=== PATIENT | female | born 1960 | race Caucasian/White ===

== ENCOUNTER 2017-02-13 16:18 | Emergency (ER) | payer BC ==
--- NOTE | 2017-02-13 16:39 | EDM.PDOC ---
ED HPI GENERAL MEDICAL PROBLEM - General Chief Complaint: Bite:Animal, Insect Stated Complaint: DOG BITE Time Seen by Provider: 02/13/17 16:39 Source of Information: Reports: Patient - History of Present Illness INITIAL COMMENTS - FREE TEXT/NARRATIVE: Patient is here today for evaluation for injuries sustained after a dog bite. She reports that she was mowing her lawn and the neighbor's dog got loose and ( perhaps stressed due to the sirens) bit her in the right thigh and she tried to pushing him away she got a wound to her left hand as well. She does not know when her last tetanus shot was. She states that the lab neighbor dog is reportedly up to date on all of its shots and the owners are persistent providing copies of these to the police. Patient is otherwise healthy, not diabetic and no bleeding or clotting disorders. Right Upper Leg Pain Score (Numeric/FACES): 7 - Related Data Allergies Allergy/AdvReac Type Severity Reaction Status Date / Time No Known Allergies Allergy Verified 02/13/17 16:29 Home Meds: Home Meds Amoxicillin/Clavulanate K [Augmentin 875 MG/125 MG] 1 tab PO Q12HR #10 tablet [Rx] Escitalopram [Lexapro] 10 mg PO DAILY 02/13/17 [History] Folic Acid 0 mg PO DAILY 02/13/17 [History] Multivitamin [Multivitamins] 1 tab PO DAILY 02/13/17 [History] Past Medical History - Past Surgical History Female Surgical History: Reports: Tubal Ligation Social & Family History - Tobacco Use Smoking Status *Q: Never Smoker - Caffeine Use Caffeine Use: Reports: Soda ED ROS GENERAL - Review of Systems Review Of Systems: See Below Constitutional: Reports: No Symptoms Musculoskeletal: Reports: No Symptoms Skin: Reports: Other (Injuries/ to right buttock and left hand) Neurological: Reports: No Symptoms ED EXAM, ANIMAL BITE - Physical Exam Exam: See Below Exam Limited By: No Limitations General Appearance: Alert, WD/WN, No Apparent Distress Extremities: Normal Range of Motion, Normal Capillary Refill Neurological: Alert, Oriented, No Motor/Sensory Deficits Skin Exam: Other (Jagged 5 cm laceration to upper outer aspect of right thigh with deeper puncture to parts of this. Superficial abrasion to the back of her left hand with loose flap of skin.) ED ANIMAL BITE PROCEDURES - Laceration/Wound Repair Right Upper Thigh Lac/Wound Length In cm: 5 Appearance: Muscle, Irregular, Mildly Contaminated Distal NVT: Neuro & Vascular Intact, No Tendon Injury Anesthetic Type: Local Local Anesthesia - Lidocaine (Xylocaine): 1% With EPI Local Anesthetic Volume: 5cc Skin Prep: Chlorhexidine (Hibiciens) Saline Irrigation (cc's): 20 Exploration/Debridement/Repair: Wound Explored, in a Bloodless Field, Minimal Debridement, No Foreign Material Found, Multiple Flaps Aligned Closed With: Sutures Suture Size: 4-0 # of Sutures: 5 Suture Type: Nylon Left Posterior Hand Lac/Wound Length In cm: 1 Appearance: Superficial, Irregular Distal NVT: Neuro & Vascular Intact, No Tendon Injury Skin Prep: Chlorhexidine (Hibiciens) Saline Irrigation (cc's): 5 Exploration/Debridement/Repair: Wound Explored, in a Bloodless Field, No Foreign Material Found, Other (Flap was aligned) Closed With: Steri-Strips Course - Orders/Labs/Meds Orders: Active Orders 24 hr Category Date Time Status Vaccines to be Administered [RC] PER UNIT ROUTINE Care 02/13/17 16:53 Active Meds: Medications Discontinued Medications Generic Name Dose Route Start Last Admin Trade Name Freq PRN Reason Stop Dose Admin Diphtheria/Tetanus/Acell Pertussis 0.5 ml 02/13/17 16:53 02/13/17 16:59 Adacel IM 02/13/17 16:54 0.5 ml .ONCE ONE Administration Lidocaine/Epinephrine 20 ml 02/13/17 16:55 02/13/17 17:00 Xylocaine 1% With Epinephrine 1:100,000 INJECT 02/13/17 16:56 20 ml ONETIME ONE Administration - Re-Assessments/Exams Free Text/Narrative Re-Assessment/Exam: Patient tolerated wound repair well. Tdap booster was given. Wound care instructions and monitoring infection were discussed discussed and patient verbalized understanding of this. Will treat prophylactically with Augmentin twice a day 5 days. She is to follow-up for suture removal in one week. 02/13/17 17:42 Departure - Departure Time of Disposition: 17:31 Disposition: Home, Self-Care 01 Clinical Impression: Laceration, Puncture Dog bite Qualifiers: Encounter type: initial encounter Qualified Code(s): W54.0XXA - Bitten by dog, initial encounter - Discharge Information Prescriptions: Amoxicillin/Clavulanate K [Augmentin 875 MG/125 MG] 1 tab PO Q12HR #10 tablet Instructions: Animal Bite, [id number] Referrals: Dianne Chaudhry NP [Primary Care Provider] - Forms: ED Department Discharge Additional Instructions: Keep area clean and dry. Cover when out in the garden or any other dirty environment. Take antibiotics twice a day for 5 days. 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 Monitor for any redness or drainage that would indicate infection. Follow-up with your PCP or in the walk-in clinic at [facility] for suture removal in approximately 7 days. Your Steri-Strips will fall off do not pick at them if the ends fray just trim the end., - My Orders Last 24 Hours: My Active Orders 02/13/17 16:53 Vaccines to be Administered [RC] PER UNIT ROUTINE - Assessment/Plan Last 24 Hours: My Active Orders 02/13/17 16:53 Vaccines to be Administered [RC] PER UNIT ROUTINE
[2017-02-13] MEDS ORDERED: Diphtheria,Pertussis(Acell),Tetanus Vaccine 0.5 ML SDV IM ONE (16:53)
[2017-02-13] MEDS ORDERED: Lidocaine 1% with EPINEPHrine 1:100,000 20 ML MDV INJECT ONE (16:55)
[2017-02-13 18:06] VITALS: BP 122/82
== END 2017-02-13 17:40 | disposition home or self-care (01) ==
LOC: JD.ED 16:18 → SUPCPDRO 16:18 → JD.ED 17:40
DX: S71.111A Laceration without foreign body, right thigh, initial encounter (principal); S60.512A Abrasion of left hand, initial encounter; Z23 Encounter for immunization; Z98.51 Tubal ligation status; Z98.890 Other specified postprocedural states; W54.0XXA Bitten by dog, initial encounter
CPT/HCPCS: 12002; 12032; 90471; 90715; 99283; 99283-25

== ENCOUNTER 2018-09-01 12:42 | Inpatient (IN) | payer BC ==
[2018-09-01] MEDS ORDERED: Sodium Chloride 0.9% 10 ML Syringe FLUSH PRN (13:08)
[2018-09-01] MEDS ORDERED: Sodium Chloride 0.9% 1,000 ML IV ONE ×3 (13:08→17:08)
[2018-09-01] MEDS ORDERED: Ondansetron 4 MG/2 ML SDV IVPUSH ONE (13:08)
--- NOTE | 2018-09-01 13:18 | EDM.PDOC ---
ED HPI GENERAL MEDICAL PROBLEM - General Chief Complaint: Abdominal Pain Stated Complaint: VOMITING Time Seen by Provider: 09/01/18 13:07 Source of Information: Reports: Patient History Limitations: Reports: No Limitations - History of Present Illness INITIAL COMMENTS - FREE TEXT/NARRATIVE: 58 y/o F previously healthy presents with vomiting, weakness, and fatigue. States she has a history of low potassium and low sodium, workup has been negative but her mother has similar problem. Otherwise no significant medical problems. Has had intermittent vomiting/malaise x 1 year for which she's seen PCP, not able to articulate exactly what testing has been completed, but says everything was normal. Now for past 2-3 days she's had many episodes of vomiting. Not keeping anything down, including liquids. Very decreased urinary output. She feels short of breath. No cough/CP. Has vague diffuse abdominal pain , not related to movement or eating, constant, moderate severity currently. Denies dysuria or hematuria. She has had a significant weight loss. Lower Abdominal Pain Score (Numeric/FACES): 5 - Related Data Allergies Allergy/AdvReac Type Severity Reaction Status Date / Time No Known Allergies Allergy Verified 09/01/18 12:54 Home Meds: Home Meds Potassium Chloride 1 tab PO TID 09/02/18 [History] Venlafaxine HCl [Venlafaxine ER] 1 tab PO DAILY 09/02/18 [History] Past Medical History HEENT History: Reports: Impaired Vision Other HEENT History: wears corrective lenses Gastrointestinal History: Reports: GERD DRAPERY HEAD FORMER History: Reports: - Past Surgical History Female Surgical History: Reports: Tubal Ligation Social & Family History - Tobacco Use Smoking Status *Q: Unknown Ever Smoked - Caffeine Use Caffeine Use: Reports: None - Recreational Drug Use Recreational Drug Use: No ED ROS GENERAL - Review of Systems Review Of Systems: See Below Constitutional: Reports: Fever, Chills, Malaise, Weakness HEENT: Denies: Rhinitis Respiratory: Denies: Shortness of Breath, Cough Cardiovascular: Denies: Chest Pain Endocrine: Reports: No Symptoms GI/Abdominal: Reports: Abdominal Pain, Vomiting. Denies: Diarrhea : Denies: Dysuria Musculoskeletal: Reports: No Symptoms Skin: Reports: No Symptoms Neurological: Reports: No Symptoms Psychiatric: Reports: No Symptoms Hematologic/Lymphatic: Reports: No Symptoms Immunologic: Reports: No Symptoms ED EXAM, GI/ABD - Physical Exam Exam: See Below Exam Limited By: No Limitations General Appearance: Mild Distress, Cachetic, Other (ill appearing ) Eyes: Bilateral: Normal Appearance, EOMI Ears: Normal External Exam Nose: Normal Inspection Throat/Mouth: Normal Inspection, Normal Oropharynx, Normal Voice Head: Atraumatic, Normocephalic Neck: Normal Inspection, Supple Respiratory/Chest: No Respiratory Distress, Lungs Clear, Normal Breath Sounds, Chest Non-Tender Cardiovascular: Normal Peripheral Pulses, Regular Rate, Rhythm, No Murmur, Tachycardia GI/Abdominal Exam: Soft, Other (mild diffuse TTP ). No: No Distention, Rebound Back Exam: Normal Inspection. No: CVA Tenderness (L), CVA Tenderness (R) Extremities: Normal Inspection Neurological: Alert, Oriented, Normal Cognition, No Motor/Sensory Deficits Psychiatric: Normal Affect, Normal Mood Skin Exam: Warm, Dry, Intact, Normal Color, No Rash Course - Vital Signs Last Recorded V/S: Last Vital Signs Temp 36.7 C 09/02/18 08:32 Pulse 96 09/02/18 08:32 Resp 16 09/02/18 08:32 BP 100/52 L 09/02/18 08:32 Pulse Ox 98 09/02/18 08:32 - Orders/Labs/Meds Orders: Medication Orders Diphenhydramine HCl (Benadryl) 25 mg IVPUSH BEDTIME PRN PRN Reason: Insomnia Docusate Sodium (Colace) 200 mg PO DAILY [facility] Last Admin: 09/02/18 08:35 Dose: 200 mg Famotidine (Pepcid) 20 mg IVPUSH DAILY [facility] Last Admin: 09/02/18 08:35 Dose: 20 mg Heparin Sodium (Porcine) (Heparin Sodium) 5,000 units SUBCUT Q12H [facility] Last Admin: 09/02/18 08:41 Dose: 5,000 units Admin: 09/01/18 21:28 Dose: 5,000 units Sodium Chloride (Normal Saline) 1,000 mls @ 125 mls/hr IV ASDIRECTED [facility] Last Admin: 09/02/18 17:52 Dose: 125 mls/hr Infusion: 09/02/18 17:52 Dose: 125 mls/hr Admin: 09/02/18 10:05 Dose: 125 mls/hr Ceftriaxone Sodium 2 gm/ (Sodium Chloride) 100 mls @ 200 mls/hr IV Q24H [facility] Last Admin: 09/02/18 00:36 Dose: 200 mls/hr Lorazepam (Ativan) 1 mg PO BID [facility] Last Admin: 09/02/18 08:44 Dose: 1 mg Megestrol Acetate (Megace 40 Mg/Ml Susp) 400 mg PO DAILY [facility] Last Admin: 09/02/18 08:39 Dose: 400 mg Mirtazapine (Remeron) 30 mg PO BEDTIME [facility] Ondansetron HCl (Zofran) 4 mg IVPUSH Q8H PRN PRN Reason: Nausea/Vomiting Polyethylene Glycol (Miralax) 17 gm PO DAILY PRN PRN Reason: Constipation Potassium Chloride (Klor-Con M20) 40 meq PO Q4H [facility] Stop: 09/02/18 19:46 Last Admin: 09/02/18 16:08 Dose: 40 meq Admin: 09/02/18 12:56 Dose: 40 meq Admin: 09/02/18 08:35 Dose: 40 meq Saccharomyces Boulardii (Florastor) 250 mg PO BID [facility] Senna/Docusate Sodium (Senna Plus) 1 tab PO BID PRN PRN Reason: Constipation Sodium Chloride (Saline Flush) 10 ml FLUSH ASDIRECTED PRN PRN Reason: Keep Vein Open Last Admin: 09/01/18 13:17 Dose: 10 ml Venlafaxine HCl (Effexor Xr) 37.5 mg PO DAILY [facility] Stop: 09/16/18 09:01 Venlafaxine HCl (Effexor Xr) 75 mg PO DAILY [facility] Stop: 09/09/18 09:01 Venlafaxine HCl (Effexor Xr) 37.5 mg PO Q2D [facility] Stop: 09/23/18 09:01 Labs: Laboratory Tests 09/01/18 09/01/18 09/01/18 Range/Units 13:34 13:34 13:34 WBC 27.91 H (3.98-10.04) K/mm3 RBC 6.41 H (3.98-5.22) M/mm3 Hgb 18.2 H (11.2-15.7) gm/L Hct 53.0 H (34.1-44.9) % MCV 82.7 (79.4-94.8) fl MCH 28.4 (25.6-32.2) pg MCHC 34.3 (32.2-35.5) g/dl RDW Std Deviation 42.6 (36.4-46.3) fL Plt Count 604 H (182-369) K/mm3 MPV 9.0 L (9.4-12.3) fl Neut % (Auto) 84.8 H (34.0-71.1) % Lymph % (Auto) 6.3 L (19.3-51.7) % [place] % (Auto) 7.8 (4.7-12.5) % Eos % (Auto) 0 L (0.7-5.8) Baso % (Auto) 0.2 (0.1-1.2) % Neut # (Auto) 23.67 H (1.56-6.13) K/mm3 Lymph # (Auto) 1.75 (1.18-3.74) K/mm3 [place] # (Auto) 2.18 H (0.24-0.36) K/mm3 Eos # (Auto) 0.01 L (0.04-0.36) K/mm3 Baso # (Auto) 0.05 (0.01-0.08) K/mm3 Manual Slide Review Abnormal smear Sodium 128 L (136-145) mEq/L Potassium 5.1 (3.5-5.1) mEq/L Chloride 93 L (98-107) mEq/L Carbon Dioxide 14 L (21-32) mEq/L Anion Gap 26.1 H (5-15) BUN 62 H (7-18) mg/dL Creatinine 3.2 H (0.55-1.02) mg/dL Est Cr Clr Drug Dosing 11.53 mL/min Estimated GFR (MDRD) 15 (>60) mL/min BUN/Creatinine Ratio 19.4 H (14-18) Glucose 204 H (74-106) mg/dL Lactic Acid 3.9 H (0.4-2.0) mmol/L Calcium 8.7 (8.5-10.1) mg/dL Magnesium 2.1 (1.8-2.4) mg/dl Total Bilirubin 0.3 (0.2-1.0) mg/dL AST 43 H (15-37) U/L ALT 47 (14-59) U/L Alkaline Phosphatase 84 (46-116) U/L Troponin I (0.00-0.056) ng/mL Total Protein 6.5 (6.4-8.2) g/dl Albumin 3.1 L (3.4-5.0) g/dl Globulin 3.4 gm/dL Albumin/Globulin Ratio 0.9 L (1-2) Lipase 621 H (73-393) U/L Free T4 0.90 (0.76-1.46) ng/dL TSH 3rd Generation 10.276 H (0.358-3.74) uIU/mL Urine Color (Yellow) Urine Appearance (Clear) Urine pH (5.0-8.0) Ur Specific [place] (1.005-1.030) Urine Protein (Negative) Urine Glucose (UA) (Negative) Urine Ketones (Negative) Urine Occult Blood (Negative) Urine Nitrite (Negative) Urine Bilirubin (Negative) Urine Urobilinogen (0.2-1.0) Ur Leukocyte Esterase (Negative) Urine RBC (0-5) /hpf Urine WBC (0-5) /hpf Ur Epithelial Cells (0-5) /hpf Urine Bacteria (FEW) /hpf Urine Mucus (FEW) /hpf 09/01/18 09/01/18 09/01/18 Range/Units 13:34 14:55 16:20 WBC (3.98-10.04) K/mm3 RBC (3.98-5.22) M/mm3 Hgb (11.2-15.7) gm/L Hct (34.1-44.9) % MCV (79.4-94.8) fl MCH (25.6-32.2) pg MCHC (32.2-35.5) g/dl RDW Std Deviation (36.4-46.3) fL Plt Count (182-369) K/mm3 MPV (9.4-12.3) fl Neut % (Auto) (34.0-71.1) % Lymph % (Auto) (19.3-51.7) % [place] % (Auto) (4.7-12.5) % Eos % (Auto) (0.7-5.8) Baso % (Auto) (0.1-1.2) % Neut # (Auto) (1.56-6.13) K/mm3 Lymph # (Auto) (1.18-3.74) K/mm3 [place] # (Auto) (0.24-0.36) K/mm3 Eos # (Auto) (0.04-0.36) K/mm3 Baso # (Auto) (0.01-0.08) K/mm3 Manual Slide Review Sodium (136-145) mEq/L Potassium (3.5-5.1) mEq/L Chloride (98-107) mEq/L Carbon Dioxide (21-32) mEq/L Anion Gap (5-15) BUN (7-18) mg/dL Creatinine (0.55-1.02) mg/dL Est Cr Clr Drug Dosing mL/min Estimated GFR (MDRD) (>60) mL/min BUN/Creatinine Ratio (14-18) Glucose (74-106) mg/dL Lactic Acid 2.3 H (0.4-2.0) mmol/L Calcium (8.5-10.1) mg/dL Magnesium (1.8-2.4) mg/dl Total Bilirubin (0.2-1.0) mg/dL AST (15-37) U/L ALT (14-59) U/L Alkaline Phosphatase (46-116) U/L Troponin I < 0.017 (0.00-0.056) ng/mL Total Protein (6.4-8.2) g/dl Albumin (3.4-5.0) g/dl Globulin gm/dL Albumin/Globulin Ratio (1-2) Lipase (73-393) U/L Free T4 (0.76-1.46) ng/dL TSH 3rd Generation (0.358-3.74) uIU/mL Urine Color Yellow (Yellow) Urine Appearance Cloudy H (Clear) Urine pH 5.5 (5.0-8.0) Ur Specific [place] > or = 1.030 (1.005-1.030) Urine Protein 2+ H (Negative) Urine Glucose (UA) Negative (Negative) Urine Ketones Trace H (Negative) Urine Occult Blood 1+ H (Negative) Urine Nitrite Positive H (Negative) Urine Bilirubin Negative (Negative) Urine Urobilinogen 0.2 (0.2-1.0) Ur Leukocyte Esterase 2+ H (Negative) Urine RBC 0-5 (0-5) /hpf Urine WBC 10-20 H (0-5) /hpf Ur Epithelial Cells 5-10 H (0-5) /hpf Urine Bacteria Many H (FEW) /hpf Urine Mucus Few (FEW) /hpf Meds: Medications Generic Name Dose Route Start Last Admin Trade Name Freq PRN Reason Stop Dose Admin Diphenhydramine HCl 25 mg 09/01/18 20:45 Benadryl IVPUSH BEDTIME PRN Insomnia Docusate Sodium 200 mg 09/02/18 09:00 09/02/18 08:35 Colace PO 200 mg DAILY [facility] Administration Famotidine 20 mg 09/02/18 09:00 09/02/18 08:35 Pepcid IVPUSH 20 mg DAILY [facility] Administration Heparin Sodium (Porcine) 5,000 units 09/01/18 21:00 09/02/18 08:41 Heparin Sodium SUBCUT 5,000 units Q12H [facility] Administration Sodium Chloride 1,000 mls @ 125 mls/hr 09/02/18 06:30 09/02/18 17:52 Normal Saline IV 125 mls/hr ASDIRECTED [facility] Administration Ceftriaxone Sodium 2 gm/ 100 mls @ 200 mls/hr 09/02/18 00:00 09/02/18 00:36 Sodium Chloride IV 200 mls/hr Q24H [facility] Administration Lorazepam 1 mg 09/02/18 09:00 09/02/18 08:44 Ativan PO 1 mg BID [facility] Administration Megestrol Acetate 400 mg 09/02/18 09:00 09/02/18 08:39 Megace 40 Mg/Ml Susp PO 400 mg DAILY [facility] Administration Mirtazapine 30 mg 09/02/18 21:00 Remeron PO BEDTIME [facility] Ondansetron HCl 4 mg 09/01/18 20:37 Zofran IVPUSH Q8H PRN Nausea/Vomiting Polyethylene Glycol 17 gm 09/02/18 14:13 Miralax PO DAILY PRN Constipation Potassium Chloride 40 meq 09/02/18 07:45 09/02/18 16:08 Klor-Con M20 PO 09/02/18 19:46 40 meq Q4H [facility] Administration Saccharomyces Boulardii 250 mg 09/02/18 21:00 Florastor PO BID [facility] Senna/Docusate Sodium 1 tab 09/02/18 08:01 Senna Plus PO BID PRN Constipation Sodium Chloride 10 ml 09/01/18 13:08 09/01/18 13:17 Saline Flush FLUSH 10 ml ASDIRECTED PRN Administration Keep Vein Open Venlafaxine HCl 37.5 mg 09/10/18 09:00 Effexor Xr PO 09/16/18 09:01 DAILY [facility] Venlafaxine HCl 75 mg 09/03/18 09:00 Effexor Xr PO 09/09/18 09:01 DAILY [facility] Venlafaxine HCl 37.5 mg 09/17/18 09:00 Effexor Xr PO 09/23/18 09:01 Q2D [facility] Discontinued Medications Generic Name Dose Route Start Last Admin Trade Name Freq PRN Reason Stop Dose Admin Al Hydroxide/Mg Hydroxide 30 ml 09/01/18 21:03 09/01/18 21:25 Mag-Al Plus PO 09/01/18 21:04 30 ml ONETIME ONE Administration Diatrizoate Meglum/Diatrizoate Sod 90 ml 09/01/18 15:27 09/01/18 16:06 Gastrografin 37% PO 09/01/18 15:28 90 ml ONETIME ONE Administration Sodium Chloride 1,000 mls @ 1,000 mls/hr 09/01/18 13:08 09/01/18 13:19 Normal Saline IV 09/01/18 14:07 1,000 mls/hr ONETIME ONE Administration Sodium Chloride 1,000 mls @ 1,000 mls/hr 09/01/18 14:36 09/01/18 14:59 Normal Saline IV 09/01/18 15:35 1,000 mls/hr ONETIME ONE Administration Cefepime HCl 2 gm/ Premix 50 mls @ 100 mls/hr 09/01/18 14:50 09/01/18 15:07 IV 09/01/18 15:19 100 mls/hr ONETIME ONE Administration Sodium Chloride 1,000 mls @ 1,000 mls/hr 09/01/18 17:08 09/01/18 17:46 Normal Saline IV 09/01/18 18:07 1,000 mls/hr ONETIME ONE Administration Sodium Chloride 1,000 mls @ 999 mls/hr 09/01/18 20:30 09/01/18 23:13 Normal Saline IV 09/02/18 21:31 999 mls/hr ASDIRECTED [facility] Administration Ceftriaxone Sodium 2 gm/ 100 mls @ 200 mls/hr 09/01/18 21:00 09/02/18 00:10 Sodium Chloride IV Not Given Q24H [facility] Sodium Chloride 1,000 mls @ 250 mls/hr 09/01/18 22:30 09/02/18 04:56 Normal Saline IV 09/03/18 02:29 250 mls/hr ASDIRECTED [facility] Administration Magnesium Oxide 400 mg 09/02/18 07:46 09/02/18 08:38 Magnesium Oxide PO 09/02/18 07:47 400 mg ONETIME ONE Administration Megestrol Acetate 40 mg 09/01/18 21:00 09/01/18 21:38 Megace PO 40 mg BID [facility] Administration Ondansetron HCl 4 mg 09/01/18 13:08 09/01/18 13:15 Zofran IVPUSH 09/01/18 13:09 4 mg ONETIME ONE Administration Polyethylene Glycol 17 gm 09/01/18 17:00 09/01/18 17:46 Miralax PO 09/01/18 17:01 17 gm ONETIME ONE Administration Polyethylene Glycol 17 gm 09/02/18 09:00 09/02/18 08:44 Miralax PO 17 gm DAILY [facility] Administration - Re-Assessments/Exams Free Text/Narrative Re-Assessment/Exam: 09/01/18 16:33 Labs concerning for infected urine, elevated creatinine, low sodium. Lactate elevated at 3.9. Her CT a/p is negative for acute abdominal abnormality other than constipation. Discussed with Dr. Villar who will admit. When I reevaluated the patient, her was at the bedside. As I was explaining results, he interrupted me and started shouting angrily at the patient. He got out of his seat moving towards her, clenched jaw, and shouted "Molly you're always sick!" . I asked him to sit down and stop shouting. He stormed out of the room. I asked Molly if she feels safe at home. She shrugged her shoulders and said he' d never hit her. I'm concerned about the interaction I witnessed - it seemed completely inappropriate for a partner to yell at a critically ill patient in an angry and blameful way. He didn't return during my shift. I notified the hospitalist of the interaction. She will contact social work when able (after hours now). Departure - Departure Time of Disposition: 18:36 Disposition: Admitted As Inpatient 67 Clinical Impression: Severely underweight adult, Acute kidney injury Depression Qualifiers: Depression Type: unspecified Qualified Code(s): F32.9 - Major depressive disorder, single episode, unspecified UTI (urinary tract infection) Qualifiers: Urinary tract infection type: acute cystitis Hematuria presence: with hematuria Qualified Code(s): N30.01 - Acute cystitis with hematuria Sepsis Qualifiers: Sepsis type: sepsis due to unspecified organism Qualified Code(s): A41.9 - Sepsis, unspecified organism Vomiting Qualifiers: Vomiting type: unspecified Vomiting Intractability: non-intractable Nausea presence: with nausea Qualified Code(s): R11.2 - Nausea with vomiting, unspecified - Discharge Information
--- NOTE | 2018-09-01 14:47 | CR ---
Abdominal series: Supine and upright views of the abdomen were obtained as well as frontal view of the chest. Comparison: No previous study. Nodular densities are seen symmetrically within both lung bases compatible with incidental nipple densities. Lungs are clear with no acute parenchymal change. Probable emphysematous change is present. Heart size and mediastinum are normal. Bowel gas pattern is normal. Calcifications are seen within the pelvis which are felt compatible with phleboliths. No other abnormal calcifications are seen. Bony structures are unremarkable. No free air is seen. Impression: 1. Probable emphysematous change. Other incidental findings. Nothing acute is appreciated. Diagnostic code #2
[2018-09-01] MEDS ORDERED: Cefepime 2 GM in Premix Bag 1 BAG IV ONE (14:50)
[2018-09-01] MEDS ORDERED: Diatrizoate Meglumine/Diatrizoate Sodium 37% 120 ML Bottle PO ONE (15:27)
--- NOTE | 2018-09-01 16:22 | CT ---
CT abdomen and pelvis Technique: Multiple axial sections were obtained from above the dome of the diaphragm inferiorly through the pubic symphysis. Intravenous contrast not utilized due to elevated creatinine. Oral contrast has been given. Comparison: No prior CT exam, previous abdominal x-ray performed on the same day (1:59 PM). Findings: Small portion of the visualized lung bases shows nothing acute. Small hiatal hernia is noted. Liver contains no focal parenchymal abnormality. Spleen appears within normal limits. Adrenal glands show no nodule. Pancreas is within normal limits. Gallbladder contains no calcified gallstones. Small nonobstructing stone is noted within each kidney. No hydronephrosis or ureteral calculi are appreciated. Aorta shows no aneurysm. No retroperitoneal adenopathy or mesenteric abnormalities are seen. No pelvic mass or adenopathy is seen. Focal increased stool is noted within the rectum. Appendix not visualized with certainty. No free fluid or inflammatory change is seen. Bone window settings appear within normal limits for the patient's age. Impression: 1. Nonobstructing stone within each kidney. 2. Increased stool within the rectum compatible with mild fecal impaction. 3. Small hiatal hernia. Nothing acute is appreciated on CT study of the abdomen and pelvis. Diagnostic code #2
[2018-09-01] MEDS ORDERED: Polyethylene Glycol 3350 Powder 17 GM Packet PO ONE (17:00)
--- NOTE | 2018-09-01 17:57 | US ---
Limited abdominal ultrasound: Multiple real-time images of the right upper abdomen were obtained. Comparison: Prior CT abdomen and pelvis exam performed earlier on the same date as well as abdominal x-ray performed earlier on the same day. Liver shows no focal abnormality. Previous small nonobstructing calculi within the right kidney seen on CT exam are not optimally seen on the ultrasound exam due to their small size. Right kidney length is 9.4 cm. Pancreas is incompletely seen. Visualized portions of the pancreas are within normal limits. Small intraluminal abnormality seen within the gallbladder showing no shadowing. This may represent non-shadowing gallstone or small sludge ball. No gallbladder wall thickening or biliary duct dilatation is seen. Impression: 1. Small non-shadowing gallstone versus small sludge ball within the gallbladder. No gallbladder wall thickening or biliary duct dilatation is seen. 2. No additional abnormality is seen on right upper quadrant abdominal ultrasound exam. Diagnostic code #2
--- NOTE | 2018-09-01 20:24 | PCM.HP ---
H&P History of Present Illness - General Date of Service: 09/01/18 Admit Problem/Dx: Admission Diagnosis/Problem Admission Diagnosis/Problem UTI, Urinary tract infectious disease Source of Information: Patient History Limitations: Reports: No Limitations - History of Present Illness Initial Comments - Free Text/Narative: 58 year old female PMH of depression and an eating disorder presents with longstanding history of N/V and malaise. The patient is severely under weight, and has abnormal electrolytes in the setting of acute renal failure. CT of the abdomen/pelvis documents fecal impaction; abdominal US documents GB sludge. A pstch consult and a gen surg consult have been ordered. Onset of Symptoms: Reports: Gradual Symptom Onset Date: 09/01/18 Duration of Symptoms: Reports: Week(s):, Getting Worse Location: Reports: Generalized Severity: Moderate Improves with: Reports: None Worsens with: Reports: None Associated Symptoms: Reports: Fever/Chills, Headaches, Loss of Appetite, Malaise , Nausea/Vomiting, Shortness of Breath, Weakness Lower Abdominal Pain Score (Numeric/FACES): 5 - Related Data Allergies/Adverse Reactions: Allergies Allergy/AdvReac Type Severity Reaction Status Date / Time No Known Allergies Allergy Verified 09/01/18 12:54 Home Medications: Home Meds Amoxicillin/Clavulanate K [Augmentin 875 MG/125 MG] 1 tab PO Q12HR #10 tablet [Rx] Escitalopram [Lexapro] 10 mg PO DAILY 02/13/17 [History] Folic Acid 0 mg PO DAILY 02/13/17 [History] Multivitamin [Multivitamins] 1 tab PO DAILY 02/13/17 [History] Past Medical History HEENT History: Reports: Impaired Vision Other HEENT History: wears corrective lenses Cardiovascular History: Reports: None Gastrointestinal History: Reports: GERD Genitourinary History: Reports: Urinary Incontinence, UTI, Recurrent 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: , 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 Musculoskeletal History: Reports: None Neurological History: Reports: None Psychiatric History: Reports: Anxiety, Depression, Eating Disorders Other Psychiatric History: Patient stated she was bullemic in high school into college Endocrine/Metabolic History: Reports: Vitamin D Deficiency Hematologic History: Reports: Polycythemia - Past Surgical History Female Surgical History: Reports: Tubal Ligation Social & Family History - Family History Neurological: Reports: Alzheimers Disease Oncologic: Reports: Other (See Below) Other Oncologic Family History: Brother had cancer started in spine and spread to bones - Tobacco Use Smoking Status *Q: Never Smoker Second Hand Smoke Exposure: No - Caffeine Use Caffeine Use: Reports: Coffee Caffeine Use Comment: drinks about 1-2 cups of coffee per day - Alcohol Use Date of Last Drink: 05/05/12 - Recreational Drug Use Recreational Drug Use: No H&P Review of Systems - Review of Systems: Review Of Systems: See Below General: Reports: Fever, Chills, Malaise, Weakness, Fatigue, Decreased Appetite , Weight Loss HEENT: Reports: Headaches, Sore Throat, Visual Changes Cardiovascular: Reports: No Symptoms Gastrointestinal: Reports: Anorexia, Nausea, Vomiting Genitourinary: Reports: Frequency Musculoskeletal: Reports: No Symptoms Skin: Reports: No Symptoms Psychiatric: Reports: No Symptoms Neurological: Reports: Dizziness Hematologic/Lymphatic: Reports: No Symptoms Immunologic: Reports: No Symptoms Exam - Exam Exam: See Below - Vital Signs Vital Signs: Last Vital Signs Temp 37.1 C 09/01/18 12:50 Pulse 120 H 09/01/18 12:50 Resp 20 09/01/18 12:50 BP 96/69 09/01/18 12:50 Pulse Ox Weight: 38.51 kg - Exam Quality Assessment: Supplemental Oxygen, DVT Prophylaxis General: Alert, Oriented HEENT: Conjunctiva Clear, Nares Patent, Normal Nasal Septum, Pupils Equal, Pupils Reactive, Glasses, PERRLA Neck: Trachea Midline Lungs: Normal Respiratory Effort Cardiovascular: Regular Rate, Regular Rhythm GI/Abdominal Exam: Normal Bowel Sounds, Soft, Non-Tender, No Organomegaly, No Distention (Female) Exam: Deferred Rectal (Female) Exam: Deferred Back Exam: Normal Inspection Extremities: Slow Capillary Refill Neurological: Cranial Nerves Intact, Normal Gait, Normal Speech Neuro Extensive - Mental Status: Alert, Oriented x3 Neuro Extensive - Motor, Sensory, Reflexes: CN II-XII Intact Psychiatric: Alert, Depressed - Patient Data Lab Results Last 24 hrs: Laboratory Results - last 24 hr 09/01/18 09/01/18 09/01/18 Range/Units 13:34 13:34 13:34 WBC 27.91 H (3.98-10.04) K/mm3 RBC 6.41 H (3.98-5.22) M/mm3 Hgb 18.2 H (11.2-15.7) gm/L Hct 53.0 H (34.1-44.9) % MCV 82.7 (79.4-94.8) fl MCH 28.4 (25.6-32.2) pg MCHC 34.3 (32.2-35.5) g/dl RDW Std Deviation 42.6 (36.4-46.3) fL Plt Count 604 H (182-369) K/mm3 MPV 9.0 L (9.4-12.3) fl Neut % (Auto) 84.8 H (34.0-71.1) % Lymph % (Auto) 6.3 L (19.3-51.7) % [place] % (Auto) 7.8 (4.7-12.5) % Eos % (Auto) 0 L (0.7-5.8) Baso % (Auto) 0.2 (0.1-1.2) % Neut # (Auto) 23.67 H (1.56-6.13) K/mm3 Lymph # (Auto) 1.75 (1.18-3.74) K/mm3 [place] # (Auto) 2.18 H (0.24-0.36) K/mm3 Eos # (Auto) 0.01 L (0.04-0.36) K/mm3 Baso # (Auto) 0.05 (0.01-0.08) K/mm3 Manual Slide Review Abnormal smear Sodium 128 L (136-145) mEq/L Potassium 5.1 (3.5-5.1) mEq/L Chloride 93 L (98-107) mEq/L Carbon Dioxide 14 L (21-32) mEq/L Anion Gap 26.1 H (5-15) BUN 62 H (7-18) mg/dL Creatinine 3.2 H (0.55-1.02) mg/dL Est Cr Clr Drug Dosing 11.53 mL/min Estimated GFR (MDRD) 15 (>60) mL/min BUN/Creatinine Ratio 19.4 H (14-18) Glucose 204 H (74-106) mg/dL Lactic Acid 3.9 H (0.4-2.0) mmol/L Calcium 8.7 (8.5-10.1) mg/dL Magnesium 2.1 (1.8-2.4) mg/dl Total Bilirubin 0.3 (0.2-1.0) mg/dL AST 43 H (15-37) U/L ALT 47 (14-59) U/L Alkaline Phosphatase 84 (46-116) U/L Troponin I (0.00-0.056) ng/mL Total Protein 6.5 (6.4-8.2) g/dl Albumin 3.1 L (3.4-5.0) g/dl Globulin 3.4 gm/dL Albumin/Globulin Ratio 0.9 L (1-2) Lipase 621 H (73-393) U/L Free T4 0.90 (0.76-1.46) ng/dL TSH 3rd Generation 10.276 H (0.358-3.74) uIU/mL Urine Color (Yellow) Urine Appearance (Clear) Urine pH (5.0-8.0) Ur Specific [place] (1.005-1.030) Urine Protein (Negative) Urine Glucose (UA) (Negative) Urine Ketones (Negative) Urine Occult Blood (Negative) Urine Nitrite (Negative) Urine Bilirubin (Negative) Urine Urobilinogen (0.2-1.0) Ur Leukocyte Esterase (Negative) Urine RBC (0-5) /hpf Urine WBC (0-5) /hpf Ur Epithelial Cells (0-5) /hpf Urine Bacteria (FEW) /hpf Urine Mucus (FEW) /hpf 09/01/18 09/01/18 09/01/18 Range/Units 13:34 14:55 16:20 WBC (3.98-10.04) K/mm3 RBC (3.98-5.22) M/mm3 Hgb (11.2-15.7) gm/L Hct (34.1-44.9) % MCV (79.4-94.8) fl MCH (25.6-32.2) pg MCHC (32.2-35.5) g/dl RDW Std Deviation (36.4-46.3) fL Plt Count (182-369) K/mm3 MPV (9.4-12.3) fl Neut % (Auto) (34.0-71.1) % Lymph % (Auto) (19.3-51.7) % [place] % (Auto) (4.7-12.5) % Eos % (Auto) (0.7-5.8) Baso % (Auto) (0.1-1.2) % Neut # (Auto) (1.56-6.13) K/mm3 Lymph # (Auto) (1.18-3.74) K/mm3 [place] # (Auto) (0.24-0.36) K/mm3 Eos # (Auto) (0.04-0.36) K/mm3 Baso # (Auto) (0.01-0.08) K/mm3 Manual Slide Review Sodium (136-145) mEq/L Potassium (3.5-5.1) mEq/L Chloride (98-107) mEq/L Carbon Dioxide (21-32) mEq/L Anion Gap (5-15) BUN (7-18) mg/dL Creatinine (0.55-1.02) mg/dL Est Cr Clr Drug Dosing mL/min Estimated GFR (MDRD) (>60) mL/min BUN/Creatinine Ratio (14-18) Glucose (74-106) mg/dL Lactic Acid 2.3 H (0.4-2.0) mmol/L Calcium (8.5-10.1) mg/dL Magnesium (1.8-2.4) mg/dl Total Bilirubin (0.2-1.0) mg/dL AST (15-37) U/L ALT (14-59) U/L Alkaline Phosphatase (46-116) U/L Troponin I < 0.017 (0.00-0.056) ng/mL Total Protein (6.4-8.2) g/dl Albumin (3.4-5.0) g/dl Globulin gm/dL Albumin/Globulin Ratio (1-2) Lipase (73-393) U/L Free T4 (0.76-1.46) ng/dL TSH 3rd Generation (0.358-3.74) uIU/mL Urine Color Yellow (Yellow) Urine Appearance Cloudy H (Clear) Urine pH 5.5 (5.0-8.0) Ur Specific [place] > or = 1.030 (1.005-1.030) Urine Protein 2+ H (Negative) Urine Glucose (UA) Negative (Negative) Urine Ketones Trace H (Negative) Urine Occult Blood 1+ H (Negative) Urine Nitrite Positive H (Negative) Urine Bilirubin Negative (Negative) Urine Urobilinogen 0.2 (0.2-1.0) Ur Leukocyte Esterase 2+ H (Negative) Urine RBC 0-5 (0-5) /hpf Urine WBC 10-20 H (0-5) /hpf Ur Epithelial Cells 5-10 H (0-5) /hpf Urine Bacteria Many H (FEW) /hpf Urine Mucus Few (FEW) /hpf Result Diagrams: 09/02/18 06:06 09/02/18 07:12 Claude Results Last 24 hrs: Microbiology 09/01/18 13:23 Influenza Type A Antigen Screen - Final Nasopharyngeal Swab NEGATIVE INFLUENZA A VIRUS AG Influenza Type B Antigen Screen - Final NEGATIVE INFLUENZA B VIRUS AG Problem List Initiated/Reviewed/Updated: Yes Orders Last 24hrs: Active Orders 24 hr Category Date Time Status Admission Status [Patient Status] [ADT] Routine ADT 09/01/18 18:40 Active Peripheral IV Care [RC] . DIRECTED Care 09/01/18 13:07 Active Peripheral IV Care [RC] . DIRECTED Care 09/01/18 13:08 Active CULTURE BLOOD [BC] Stat Lab 09/01/18 13:24 Received CULTURE BLOOD [BC] Stat Lab 09/01/18 13:34 Received CULTURE URINE [RM] Stat Lab 09/01/18 14:55 Received Sodium Chloride 0.9% [Saline Flush] Med 09/01/18 13:08 Active 10 ml FLUSH ASDIRECTED PRN Blood Culture x2 Reflex Set [OM.PC] Stat Oth 09/01/18 13:11 Ordered Peripheral IV Insertion Adult [OM.PC] Routine Oth 09/01/18 13:07 Ordered Medication Orders Sodium Chloride (Saline Flush) 10 ml FLUSH ASDIRECTED PRN PRN Reason: Keep Vein Open Last Admin: 09/01/18 13:17 Dose: 10 ml Assessment/Plan Comment:: Impression: Acute pancreatitis, GB sludge AUTI Eating disorder, NOS Severely under weight, BMI 15.5 Major depression Fecal impaction Heme concentration Acute renal failure Hyperkalemia Subclinical hypothyroid Plan: Colon retraining Scheduled and prn laxatives Electrolyte correction IVF aggressively Psych consult re: major depression, eating disorder Gen surg consult re: GB/pancreatitis; fecal impaction 2D echo re: cardiomyopathy ENDO as OP DVT/GI prophylaxis
[2018-09-01] MEDS ORDERED: Ondansetron 4 MG/2 ML SDV IVPUSH PRN (20:37)
[2018-09-01] MEDS ORDERED: diphenhydrAMINE 50 MG/ML SDV IVPUSH PRN (20:45)
[2018-09-01] MEDS ORDERED: Megestrol 40 MG Tab PO SCH (21:00)
[2018-09-01] MEDS ORDERED: cefTRIAXone 2 GM in Sodium Chloride 0.9% 100 ML IV SCH (21:00)
[2018-09-01] MEDS ORDERED: Aluminum Hydroxide/Magnesium Hydroxide/Simethicone Susp 30 ML Cup PO ONE (21:03)
[2018-09-01] MEDS: Sodium Chloride 0.9% 1,000 ML IV SCH ×2 (21:24→23:13)
[2018-09-01] MEDS: Heparin Sodium 5,000 Units/ML Vial SUBCUT SCH (21:28)
[2018-09-01] MEDS ORDERED: cefTRIAXone 2 GM Vial IVPUSH SCH (23:00)
[2018-09-02] MEDS: Sodium Chloride 0.9% 1,000 ML IV SCH ×4 (00:36→17:52)
[2018-09-02] MEDS: cefTRIAXone 2 GM in Sodium Chloride 0.9% 100 ML IV SCH (00:36)
[2018-09-02 06:59] LABS: HEMOGLOBIN A1C 5.4 % (4.50-6.20)
[2018-09-02] MEDS ORDERED: Magnesium Oxide 400 MG Tab PO ONE (07:46)
[2018-09-02 08:25] LABS: VITAMIN D,25-HYDROXY 42.6 ng/ml (30.0-100.0)
[2018-09-02] MEDS: Docusate Sodium 100 MG Cap PO SCH (08:35)
[2018-09-02] MEDS: Famotidine 20 MG/2 ML SDV IVPUSH SCH (08:35)
[2018-09-02] MEDS: Potassium Chloride 20 MEQ Tab.ER PO SCH ×4 (08:35→20:24)
[2018-09-02] MEDS: Megestrol Susp 40 MG/ML 10 ML UD Cup PO SCH (08:39)
[2018-09-02] MEDS: Heparin Sodium 5,000 Units/ML Vial SUBCUT SCH ×2 (08:41→20:26)
[2018-09-02] MEDS: LORazepam 1 MG Tab PO SCH ×2 (08:44→20:25)
[2018-09-02] MEDS ORDERED: Polyethylene Glycol 3350 Powder 17 GM Packet PO SCH (09:00)
--- NOTE | 2018-09-02 09:48 | PCM.PN ---
- General Info Date of Service: 09/02/18 Admission Dx/Problem (Free Text): Admission Diagnosis/Problem Admission Diagnosis/Problem UTI, Urinary tract infectious disease Subjective Update: In to see Molly. She is laying comfortably in bed. She has no current complaints. She did have some diarrhea today, but denies and nausea or vomiting. I explained that she does have a UTI which we are treating with antibiotics and that our General Surgeon, Dr. Arguello, will be seeing her regarding her mild fecal impaction. Dr. Reed is also to see her for depression/ possible eating disorder. We discussed her weight and she said she just "doesn' t have an appetite" and "I have lost 20lbs in the last 2 years". She states she is not trying to lose weight. She says "I've always been thin" but "I'm worried about my weight now too". Dietary consulted to help her with weight gain/ constipation issue. I also explained it does look like she has subclinical hypothyroid and she will likely need to f/u with tool mechanic at d/c. All questions and concerns were answered. No concerns from nursing except earlier her electrolytes were abnormal but have since been supplemented. Functional Status: Reports: Pain Controlled, Tolerating Diet, Ambulating, Urinating - Review of Systems General: Reports: Weakness. Denies: Fever, Chills HEENT: Reports: No Symptoms Pulmonary: Reports: No Symptoms. Denies: Shortness of Breath, Cough Cardiovascular: Reports: No Symptoms. Denies: Chest Pain Gastrointestinal: Reports: Constipation, Decreased Appetite, Diarrhea. Denies: Abdominal Pain, Nausea, Vomiting Genitourinary: Reports: No Symptoms. Denies: Dysuria, Frequency, Burning, Pain , Urgency Musculoskeletal: Reports: No Symptoms Skin: Reports: No Symptoms Neurological: Reports: Weakness Psychiatric: Reports: No Symptoms - Patient Data Vitals - Most Recent: Last Vital Signs Temp 98.1 F 09/02/18 03:55 Pulse 104 H 09/02/18 03:55 Resp 12 09/02/18 03:55 BP 106/62 09/02/18 03:55 Pulse Ox 96 09/02/18 03:55 Weight - Most Recent: 84 lb 14.4 oz I&O - Last 24 Hours: Intake & Output 09/01/18 09/02/18 09/02/18 22:59 06:59 14:59 Intake Total 1400 Output Total 750 Balance 650 Lab Results Last 24 Hours: Laboratory Results - last 24 hr 09/01/18 09/01/18 09/01/18 Range/Units 13:34 13:34 13:34 WBC 27.91 H (3.98-10.04) K/mm3 RBC 6.41 H (3.98-5.22) M/mm3 Hgb 18.2 H (11.2-15.7) gm/L Hct 53.0 H (34.1-44.9) % MCV 82.7 (79.4-94.8) fl MCH 28.4 (25.6-32.2) pg MCHC 34.3 (32.2-35.5) g/dl RDW Std Deviation 42.6 (36.4-46.3) fL Plt Count 604 H (182-369) K/mm3 MPV 9.0 L (9.4-12.3) fl Neut % (Auto) 84.8 H (34.0-71.1) % Lymph % (Auto) 6.3 L (19.3-51.7) % Cloud % (Auto) 7.8 (4.7-12.5) % Eos % (Auto) 0 L (0.7-5.8) Baso % (Auto) 0.2 (0.1-1.2) % Neut # (Auto) 23.67 H (1.56-6.13) K/mm3 Lymph # (Auto) 1.75 (1.18-3.74) K/mm3 Cloud # (Auto) 2.18 H (0.24-0.36) K/mm3 Eos # (Auto) 0.01 L (0.04-0.36) K/mm3 Baso # (Auto) 0.05 (0.01-0.08) K/mm3 Manual Slide Review Abnormal smear Sodium 128 L (136-145) mEq/L Potassium 5.1 (3.5-5.1) mEq/L Chloride 93 L (98-107) mEq/L Carbon Dioxide 14 L (21-32) mEq/L Anion Gap 26.1 H (5-15) BUN 62 H (7-18) mg/dL Creatinine 3.2 H (0.55-1.02) mg/dL Est Cr Clr Drug Dosing 11.53 mL/min Estimated GFR (MDRD) 15 (>60) mL/min BUN/Creatinine Ratio 19.4 H (14-18) Glucose 204 H (74-106) mg/dL Hemoglobin A1c (4.50-6.20) % Lactic Acid 3.9 H (0.4-2.0) mmol/L Calcium 8.7 (8.5-10.1) mg/dL Magnesium 2.1 (1.8-2.4) mg/dl Total Bilirubin 0.3 (0.2-1.0) mg/dL AST 43 H (15-37) U/L ALT 47 (14-59) U/L Alkaline Phosphatase 84 (46-116) U/L Troponin I (0.00-0.056) ng/mL C-Reactive Protein (<1.0) mg/dL Total Protein 6.5 (6.4-8.2) g/dl Albumin 3.1 L (3.4-5.0) g/dl Globulin 3.4 gm/dL Albumin/Globulin Ratio 0.9 L (1-2) Lipase 621 H (73-393) U/L Vitamin D 25-Hydroxy (30.0-100.0) ng/ml Folate (8.6-58.9) ng/mL Free T4 0.90 (0.76-1.46) ng/dL TSH 3rd Generation 10.276 H (0.358-3.74) uIU/mL Urine Color (Yellow) Urine Appearance (Clear) Urine pH (5.0-8.0) Ur Specific [place] (1.005-1.030) Urine Protein (Negative) Urine Glucose (UA) (Negative) Urine Ketones (Negative) Urine Occult Blood (Negative) Urine Nitrite (Negative) Urine Bilirubin (Negative) Urine Urobilinogen (0.2-1.0) Ur Leukocyte Esterase (Negative) Urine RBC (0-5) /hpf Urine WBC (0-5) /hpf Ur Epithelial Cells (0-5) /hpf Urine Bacteria (FEW) /hpf Urine Mucus (FEW) /hpf 09/01/18 09/01/18 09/01/18 Range/Units 13:34 14:55 16:20 WBC (3.98-10.04) K/mm3 RBC (3.98-5.22) M/mm3 Hgb (11.2-15.7) gm/L Hct (34.1-44.9) % MCV (79.4-94.8) fl MCH (25.6-32.2) pg MCHC (32.2-35.5) g/dl RDW Std Deviation (36.4-46.3) fL Plt Count (182-369) K/mm3 MPV (9.4-12.3) fl Neut % (Auto) (34.0-71.1) % Lymph % (Auto) (19.3-51.7) % Cloud % (Auto) (4.7-12.5) % Eos % (Auto) (0.7-5.8) Baso % (Auto) (0.1-1.2) % Neut # (Auto) (1.56-6.13) K/mm3 Lymph # (Auto) (1.18-3.74) K/mm3 Cloud # (Auto) (0.24-0.36) K/mm3 Eos # (Auto) (0.04-0.36) K/mm3 Baso # (Auto) (0.01-0.08) K/mm3 Manual Slide Review Sodium (136-145) mEq/L Potassium (3.5-5.1) mEq/L Chloride (98-107) mEq/L Carbon Dioxide (21-32) mEq/L Anion Gap (5-15) BUN (7-18) mg/dL Creatinine (0.55-1.02) mg/dL Est Cr Clr Drug Dosing mL/min Estimated GFR (MDRD) (>60) mL/min BUN/Creatinine Ratio (14-18) Glucose (74-106) mg/dL Hemoglobin A1c (4.50-6.20) % Lactic Acid 2.3 H (0.4-2.0) mmol/L Calcium (8.5-10.1) mg/dL Magnesium (1.8-2.4) mg/dl Total Bilirubin (0.2-1.0) mg/dL AST (15-37) U/L ALT (14-59) U/L Alkaline Phosphatase (46-116) U/L Troponin I < 0.017 (0.00-0.056) ng/mL C-Reactive Protein (<1.0) mg/dL Total Protein (6.4-8.2) g/dl Albumin (3.4-5.0) g/dl Globulin gm/dL Albumin/Globulin Ratio (1-2) Lipase (73-393) U/L Vitamin D 25-Hydroxy (30.0-100.0) ng/ml Folate (8.6-58.9) ng/mL Free T4 (0.76-1.46) ng/dL TSH 3rd Generation (0.358-3.74) uIU/mL Urine Color Yellow (Yellow) Urine Appearance Cloudy H (Clear) Urine pH 5.5 (5.0-8.0) Ur Specific [place] > or = 1.030 (1.005-1.030) Urine Protein 2+ H (Negative) Urine Glucose (UA) Negative (Negative) Urine Ketones Trace H (Negative) Urine Occult Blood 1+ H (Negative) Urine Nitrite Positive H (Negative) Urine Bilirubin Negative (Negative) Urine Urobilinogen 0.2 (0.2-1.0) Ur Leukocyte Esterase 2+ H (Negative) Urine RBC 0-5 (0-5) /hpf Urine WBC 10-20 H (0-5) /hpf Ur Epithelial Cells 5-10 H (0-5) /hpf Urine Bacteria Many H (FEW) /hpf Urine Mucus Few (FEW) /hpf 09/02/18 09/02/18 09/02/18 Range/Units 06:06 06:06 06:06 WBC 10.10 H (3.98-10.04) K/mm3 RBC 4.10 (3.98-5.22) M/mm3 Hgb 11.5 (11.2-15.7) gm/L Hct 34.2 (34.1-44.9) % MCV 83.4 (79.4-94.8) fl MCH 28.0 (25.6-32.2) pg MCHC 33.6 (32.2-35.5) g/dl RDW Std Deviation 39.5 (36.4-46.3) fL Plt Count 326 (182-369) K/mm3 MPV 8.8 L (9.4-12.3) fl Neut % (Auto) 73.9 H (34.0-71.1) % Lymph % (Auto) 13.5 L (19.3-51.7) % Cloud % (Auto) 11.7 (4.7-12.5) % Eos % (Auto) 0.1 L (0.7-5.8) Baso % (Auto) 0.2 (0.1-1.2) % Neut # (Auto) 7.47 H (1.56-6.13) K/mm3 Lymph # (Auto) 1.36 (1.18-3.74) K/mm3 Cloud # (Auto) 1.18 H (0.24-0.36) K/mm3 Eos # (Auto) 0.01 L (0.04-0.36) K/mm3 Baso # (Auto) 0.02 (0.01-0.08) K/mm3 Manual Slide Review Sodium (136-145) mEq/L Potassium (3.5-5.1) mEq/L Chloride (98-107) mEq/L Carbon Dioxide (21-32) mEq/L Anion Gap (5-15) BUN (7-18) mg/dL Creatinine (0.55-1.02) mg/dL Est Cr Clr Drug Dosing mL/min Estimated GFR (MDRD) (>60) mL/min BUN/Creatinine Ratio (14-18) Glucose (74-106) mg/dL Hemoglobin A1c (4.50-6.20) % Lactic Acid 0.5 (0.4-2.0) mmol/L Calcium (8.5-10.1) mg/dL Magnesium (1.8-2.4) mg/dl Total Bilirubin (0.2-1.0) mg/dL AST (15-37) U/L ALT (14-59) U/L Alkaline Phosphatase (46-116) U/L Troponin I (0.00-0.056) ng/mL C-Reactive Protein (<1.0) mg/dL Total Protein (6.4-8.2) g/dl Albumin (3.4-5.0) g/dl Globulin gm/dL Albumin/Globulin Ratio (1-2) Lipase (73-393) U/L Vitamin D 25-Hydroxy (30.0-100.0) ng/ml Folate 39.6 (8.6-58.9) ng/mL Free T4 (0.76-1.46) ng/dL TSH 3rd Generation (0.358-3.74) uIU/mL Urine Color (Yellow) Urine Appearance (Clear) Urine pH (5.0-8.0) Ur Specific [place] (1.005-1.030) Urine Protein (Negative) Urine Glucose (UA) (Negative) Urine Ketones (Negative) Urine Occult Blood (Negative) Urine Nitrite (Negative) Urine Bilirubin (Negative) Urine Urobilinogen (0.2-1.0) Ur Leukocyte Esterase (Negative) Urine RBC (0-5) /hpf Urine WBC (0-5) /hpf Ur Epithelial Cells (0-5) /hpf Urine Bacteria (FEW) /hpf Urine Mucus (FEW) /hpf 09/02/18 09/02/18 Range/Units 06:06 07:12 WBC (3.98-10.04) K/mm3 RBC (3.98-5.22) M/mm3 Hgb (11.2-15.7) gm/L Hct (34.1-44.9) % MCV (79.4-94.8) fl MCH (25.6-32.2) pg MCHC (32.2-35.5) g/dl RDW Std Deviation (36.4-46.3) fL Plt Count (182-369) K/mm3 MPV (9.4-12.3) fl Neut % (Auto) (34.0-71.1) % Lymph % (Auto) (19.3-51.7) % Cloud % (Auto) (4.7-12.5) % Eos % (Auto) (0.7-5.8) Baso % (Auto) (0.1-1.2) % Neut # (Auto) (1.56-6.13) K/mm3 Lymph # (Auto) (1.18-3.74) K/mm3 Cloud # (Auto) (0.24-0.36) K/mm3 Eos # (Auto) (0.04-0.36) K/mm3 Baso # (Auto) (0.01-0.08) K/mm3 Manual Slide Review Sodium 137 (136-145) mEq/L Potassium 2.4 L* (3.5-5.1) mEq/L Chloride 108 H (98-107) mEq/L Carbon Dioxide 14 L (21-32) mEq/L Anion Gap 17.4 H (5-15) BUN 39 H (7-18) mg/dL Creatinine 1.2 H (0.55-1.02) mg/dL Est Cr Clr Drug Dosing 32.82 mL/min Estimated GFR (MDRD) 46 (>60) mL/min BUN/Creatinine Ratio 32.5 H (14-18) Glucose 97 (74-106) mg/dL Hemoglobin A1c 5.40 (4.50-6.20) % Lactic Acid (0.4-2.0) mmol/L Calcium 6.7 L (8.5-10.1) mg/dL Magnesium 1.7 L (1.8-2.4) mg/dl Total Bilirubin (0.2-1.0) mg/dL AST (15-37) U/L ALT (14-59) U/L Alkaline Phosphatase (46-116) U/L Troponin I (0.00-0.056) ng/mL C-Reactive Protein 0.8 (<1.0) mg/dL Total Protein (6.4-8.2) g/dl Albumin (3.4-5.0) g/dl Globulin gm/dL Albumin/Globulin Ratio (1-2) Lipase 169 (73-393) U/L Vitamin D 25-Hydroxy 42.6 (30.0-100.0) ng/ml Folate (8.6-58.9) ng/mL Free T4 (0.76-1.46) ng/dL TSH 3rd Generation (0.358-3.74) uIU/mL Urine Color (Yellow) Urine Appearance (Clear) Urine pH (5.0-8.0) Ur Specific [place] (1.005-1.030) Urine Protein (Negative) Urine Glucose (UA) (Negative) Urine Ketones (Negative) Urine Occult Blood (Negative) Urine Nitrite (Negative) Urine Bilirubin (Negative) Urine Urobilinogen (0.2-1.0) Ur Leukocyte Esterase (Negative) Urine RBC (0-5) /hpf Urine WBC (0-5) /hpf Ur Epithelial Cells (0-5) /hpf Urine Bacteria (FEW) /hpf Urine Mucus (FEW) /hpf Claude Results Last 24 Hours: Microbiology 09/01/18 14:55 Urine Culture - Preliminary Urine, Bladder Gram Negative Rods 09/01/18 13:23 Influenza Type A Antigen Screen - Final Nasopharyngeal Swab NEGATIVE INFLUENZA A VIRUS AG Influenza Type B Antigen Screen - Final NEGATIVE INFLUENZA B VIRUS AG Med Orders - Current: Current Medications Diphenhydramine HCl (Benadryl) 25 mg IVPUSH BEDTIME PRN PRN Reason: Insomnia Docusate Sodium (Colace) 200 mg PO DAILY [facility] Last Admin: 09/02/18 08:35 Dose: 200 mg Famotidine (Pepcid) 20 mg IVPUSH DAILY [facility] Last Admin: 09/02/18 08:35 Dose: 20 mg Heparin Sodium (Porcine) (Heparin Sodium) 5,000 units SUBCUT Q12H [facility] Last Admin: 09/02/18 08:41 Dose: 5,000 units Sodium Chloride (Normal Saline) 1,000 mls @ 999 mls/hr IV ASDIRECTED [facility] Stop: 09/02/18 21:31 Last Admin: 09/01/18 23:13 Dose: 999 mls/hr Sodium Chloride (Normal Saline) 1,000 mls @ 250 mls/hr IV ASDIRECTED [facility] Stop: 09/03/18 02:29 Last Admin: 09/02/18 04:56 Dose: 250 mls/hr Sodium Chloride (Normal Saline) 1,000 mls @ 125 mls/hr IV ASDIRECTED [facility] Ceftriaxone Sodium 2 gm/ (Sodium Chloride) 100 mls @ 200 mls/hr IV Q24H [facility] Last Admin: 09/02/18 00:36 Dose: 200 mls/hr Lorazepam (Ativan) 1 mg PO BID [facility] Last Admin: 09/02/18 08:44 Dose: 1 mg Megestrol Acetate (Megace 40 Mg/Ml Susp) 400 mg PO DAILY [facility] Last Admin: 09/02/18 08:39 Dose: 400 mg Mirtazapine (Remeron) 30 mg PO BEDTIME [facility] Ondansetron HCl (Zofran) 4 mg IVPUSH Q8H PRN PRN Reason: Nausea/Vomiting Polyethylene Glycol (Miralax) 17 gm PO DAILY [facility] Last Admin: 09/02/18 08:44 Dose: 17 gm Potassium Chloride (Klor-Con M20) 40 meq PO Q4H [facility] Stop: 09/02/18 19:46 Last Admin: 09/02/18 08:35 Dose: 40 meq Senna/Docusate Sodium (Senna Plus) 1 tab PO BID PRN PRN Reason: Constipation Sodium Chloride (Saline Flush) 10 ml FLUSH ASDIRECTED PRN PRN Reason: Keep Vein Open Last Admin: 09/01/18 13:17 Dose: 10 ml Discontinued Medications Al Hydroxide/Mg Hydroxide (Mag-Al Plus) 30 ml PO ONETIME ONE Stop: 09/01/18 21:04 Last Admin: 09/01/18 21:25 Dose: 30 ml Diatrizoate Meglum/Diatrizoate Sod (Gastrografin 37%) 90 ml PO ONETIME ONE Stop: 09/01/18 15:28 Last Admin: 09/01/18 16:06 Dose: 90 ml Sodium Chloride (Normal Saline) 1,000 mls @ 1,000 mls/hr IV ONETIME ONE Stop: 09/01/18 14:07 Last Admin: 09/01/18 13:19 Dose: 1,000 mls/hr Sodium Chloride (Normal Saline) 1,000 mls @ 1,000 mls/hr IV ONETIME ONE Stop: 09/01/18 15:35 Last Admin: 09/01/18 14:59 Dose: 1,000 mls/hr Cefepime HCl 2 gm/ Premix 50 mls @ 100 mls/hr IV ONETIME ONE Stop: 09/01/18 15:19 Last Admin: 09/01/18 15:07 Dose: 100 mls/hr Sodium Chloride (Normal Saline) 1,000 mls @ 1,000 mls/hr IV ONETIME ONE Stop: 09/01/18 18:07 Last Admin: 09/01/18 17:46 Dose: 1,000 mls/hr Ceftriaxone Sodium 2 gm/ (Sodium Chloride) 100 mls @ 200 mls/hr IV Q24H [facility] Last Admin: 09/02/18 00:10 Dose: Not Given Magnesium Oxide (Magnesium Oxide) 400 mg PO ONETIME ONE Stop: 09/02/18 07:47 Last Admin: 09/02/18 08:38 Dose: 400 mg Megestrol Acetate (Megace) 40 mg PO BID [facility] Last Admin: 09/01/18 21:38 Dose: 40 mg Ondansetron HCl (Zofran) 4 mg IVPUSH ONETIME ONE Stop: 09/01/18 13:09 Last Admin: 09/01/18 13:15 Dose: 4 mg Polyethylene Glycol (Miralax) 17 gm PO ONETIME ONE Stop: 09/01/18 17:01 Last Admin: 09/01/18 17:46 Dose: 17 gm - Exam Quality Assessment: DVT Prophylaxis General: Alert, Oriented, Cooperative, No Acute Distress HEENT: Pupils Equal, Pupils Reactive, EOMI, Mucous Membr. Moist/Darling Neck: Supple Lungs: Clear to Auscultation, Normal Respiratory Effort Cardiovascular: Regular Rhythm, Tachycardia GI/Abdominal Exam: Normal Bowel Sounds, Soft, Non-Tender, No Organomegaly, No Distention, No Abnormal Bruit, No Mass, Pelvis Stable (Female) Exam: Deferred Back Exam: Normal Inspection Extremities: Normal Inspection, Normal Range of Motion, Non-Tender, No Pedal Edema, Normal Capillary Refill Peripheral Pulses: 1+: Posterior Tibial (L), Posterior Tibial (R), Dorsalis Pedis (L), Dorsalis Pedis (R) Skin: Warm, Dry, Intact Neurological: No New Focal Deficit Psy/Mental Status: Alert, Normal Affect, Normal Mood - Problem List & Annotations (1) Pancreatitis SNOMED Code(s): 74529027 Code(s): K85.90 - ACUTE PANCREATITIS WITHOUT NECROSIS OR INFECTION, UNSP Status: Acute Priority: High Current Visit: Yes Qualifiers: Chronicity: acute Pancreatitis type: unspecified pancreatitis type Acute pancreatitis complication: unspecified Qualified Code(s): K85.90 - Acute pancreatitis without necrosis or infection, unspecified (2) UTI (urinary tract infection) SNOMED Code(s): 19469190 Code(s): N39.0 - URINARY TRACT INFECTION, SITE NOT SPECIFIED Status: Acute Priority: High Current Visit: Yes Qualifiers: Urinary tract infection type: acute cystitis Hematuria presence: with hematuria Qualified Code(s): N30.01 - Acute cystitis with hematuria (3) Eating disorder SNOMED Code(s): 71838426 Code(s): F50.9 - EATING DISORDER, UNSPECIFIED Status: Acute Priority: High Current Visit: Yes (4) Cachectic SNOMED Code(s): 897194568 Code(s): R64 - CACHEXIA Status: Acute Priority: High Current Visit: Yes (5) Severely underweight adult SNOMED Code(s): 960550014 Code(s): R63.6 - UNDERWEIGHT Status: Acute Priority: High Current Visit : Yes (6) Depression SNOMED Code(s): 89364658 Code(s): F32.9 - MAJOR DEPRESSIVE DISORDER, SINGLE EPISODE, UNSPECIFIED Status: Chronic Priority: Medium Current Visit: Yes Qualifiers: Depression Type: unspecified Qualified Code(s): F32.9 - Major depressive disorder, single episode, unspecified (7) Fecal impaction SNOMED Code(s): 48159837 Code(s): K56.41 - FECAL IMPACTION Status: Acute Priority: High Current Visit: Yes (8) ARF (acute renal failure) SNOMED Code(s): 79624998 Code(s): N17.9 - ACUTE KIDNEY FAILURE, UNSPECIFIED Status: Acute Priority : High Current Visit: Yes Qualifiers: Acute renal failure type: unspecified Qualified Code(s): N17.9 - Acute kidney failure, unspecified (9) Subclinical hypothyroidism SNOMED Code(s): 45076237 Code(s): E03.9 - HYPOTHYROIDISM, UNSPECIFIED Status: Acute Priority: High Current Visit: Yes (10) Hypokalemia SNOMED Code(s): 75983560 Code(s): E87.6 - HYPOKALEMIA Status: Acute Priority: High Current Visit : Yes - Problem List Review Problem List Initiated/Reviewed/Updated: Yes - My Orders Last 24 Hours: My Active Orders 09/02/18 07:45 Potassium Chloride [Klor-Con M20] 40 meq PO Q4H 09/02/18 07:58 Oxygen Therapy [RC] PRN VTE/DVT Education [RC] PER UNIT ROUTINE 09/02/18 08:01 Docusate Sodium/Sennosides [Senna Plus] 1 tab PO BID PRN 09/02/18 08:03 Enema [RC] ASDIRECTED 09/02/18 09:00 Polyethylene Glycol 3350 [MiraLAX] 17 gm PO DAILY 09/02/18 19:00 POTASSIUM,K [CHEM] Routine 09/02/18 Breakfast Clear Liquid Diet [DIET] - Plan Plan:: Assessment Impression: Acute: AUTI, Improving * WBC 27.91--> 10.10 * Risk factor: Decreased urinary output, h/o urinary incontinence, h/o recurrent UTI * UA in ED impressive for UTI * Urine culture pending * Blood culture pending * Cefepime started in ED--> D/C start Rocephin Eating disorder, NOS * Cachetic appearance, Severely under weight, BMI 15.5 * Significant weight loss--> lost 20lb in last 2 years * Pt states she "just doesn't have an appetite" and is "concerned about my weight loss" * h/o bulimia in college * Megace for appetite stimulation * Advance diet as tolerated * Dietary consult * Consult Psychiatrist Dr. Reed Fecal impaction * Likely 2/2 decreased intake, dehydration, subclinical hypothyroid * Pt c/o diarrhea * CT Abdomen Pelvis in ED: * Nonobstructing stone within each kidney. * 2. Increased stool within the rectum compatible with mild fecal impaction. * 3. Small hiatal hernia. Nothing acute is appreciated on CT study of the abdomen and pelvis. * Advance diet as tolerated * Stool Softener, laxatives, prune juice, enemas PRN * Dietary Consult * Consult General Surgeon Dr. Arguello Acute renal failure, Improving * Likely 2/2 dehydration * Unsure of baseline renal function * GFR 15--> 46, Cr 3.2--> 1.2, BUN 62--> 39 * IVF * Monitor Hypokalemia * Likely 2/2 decreased intake and dilution d/t IVF * 2.4 * Monitor and Replenish PRN Hypomagnesemia * Likely 2/2 decreased intake and dilution d/t IVF * 1.7 * Monitor and Replenish PRN Subclinical hypothyroid * TSH 10.276, T4 0.90 * Recommend f/u with endocrinology outpt Resolved: Acute pancreatitis, GB sludge * Lipase elevated 621--> 169 * Abdominal U/S: Small non-shadowing gallstone versus small sludge ball within the gallbladder. No gallbladder wall thickening or biliary duct dilatation is seen. * Consult General Surgeon Dr. Arguello Heme concentration * Likely 2/2 Dehydration * RBC 6.41--> 4.10, Hgb 18.2--> 11.5, Hct 53--> 34.2, Plt 604--> 326 * IVF Chronic: GERD Urinary Incontinence Recurrent UTI Anxiety Vit D deficiency--> WNL here Polycythemia Major depression * Consult Psychiatrist Dr. Reed Plan: Admit to Medical Floor Routine AM labs Colon retraining, Scheduled and prn laxatives IVF aggressively Psych consult re: major depression, eating disorder Gen surg consult re: GB/pancreatitis; fecal impaction 2D echo re: cardiomyopathy NPO--> Clear Liquids PT/OT CM/SW DVT/GI prophylaxis Code: Full Code; PCP: MEHUL Castaneda
--- NOTE | 2018-09-02 12:05 | PCM.CONSN ---
- General Info Date of Service: 09/02/18 - Patient Data Vitals - Most Recent: Last Vital Signs Temp 98.1 F 09/02/18 08:32 Pulse 96 09/02/18 08:32 Resp 16 09/02/18 08:32 BP 100/52 L 09/02/18 08:32 Pulse Ox 98 09/02/18 08:32 Weight - Most Recent: 38.51 kg I&O - Last 24 Hours: Intake & Output 09/01/18 09/02/18 09/02/18 23:59 07:59 15:59 Intake Total 1400 240 Output Total 750 Balance 650 240 Lab Results Last 24 Hours: Laboratory Results - last 24 hr 09/01/18 09/01/18 09/01/18 Range/Units 13:34 13:34 13:34 WBC 27.91 H (3.98-10.04) K/mm3 RBC 6.41 H (3.98-5.22) M/mm3 Hgb 18.2 H (11.2-15.7) gm/L Hct 53.0 H (34.1-44.9) % MCV 82.7 (79.4-94.8) fl MCH 28.4 (25.6-32.2) pg MCHC 34.3 (32.2-35.5) g/dl RDW Std Deviation 42.6 (36.4-46.3) fL Plt Count 604 H (182-369) K/mm3 MPV 9.0 L (9.4-12.3) fl Neut % (Auto) 84.8 H (34.0-71.1) % Lymph % (Auto) 6.3 L (19.3-51.7) % [place] % (Auto) 7.8 (4.7-12.5) % Eos % (Auto) 0 L (0.7-5.8) Baso % (Auto) 0.2 (0.1-1.2) % Neut # (Auto) 23.67 H (1.56-6.13) K/mm3 Lymph # (Auto) 1.75 (1.18-3.74) K/mm3 [place] # (Auto) 2.18 H (0.24-0.36) K/mm3 Eos # (Auto) 0.01 L (0.04-0.36) K/mm3 Baso # (Auto) 0.05 (0.01-0.08) K/mm3 Manual Slide Review Abnormal smear Sodium 128 L (136-145) mEq/L Potassium 5.1 (3.5-5.1) mEq/L Chloride 93 L (98-107) mEq/L Carbon Dioxide 14 L (21-32) mEq/L Anion Gap 26.1 H (5-15) BUN 62 H (7-18) mg/dL Creatinine 3.2 H (0.55-1.02) mg/dL Est Cr Clr Drug Dosing 11.53 mL/min Estimated GFR (MDRD) 15 (>60) mL/min BUN/Creatinine Ratio 19.4 H (14-18) Glucose 204 H (74-106) mg/dL Hemoglobin A1c (4.50-6.20) % Lactic Acid 3.9 H (0.4-2.0) mmol/L Calcium 8.7 (8.5-10.1) mg/dL Magnesium 2.1 (1.8-2.4) mg/dl Total Bilirubin 0.3 (0.2-1.0) mg/dL AST 43 H (15-37) U/L ALT 47 (14-59) U/L Alkaline Phosphatase 84 (46-116) U/L Troponin I (0.00-0.056) ng/mL C-Reactive Protein (<1.0) mg/dL Total Protein 6.5 (6.4-8.2) g/dl Albumin 3.1 L (3.4-5.0) g/dl Globulin 3.4 gm/dL Albumin/Globulin Ratio 0.9 L (1-2) Lipase 621 H (73-393) U/L Vitamin D 25-Hydroxy (30.0-100.0) ng/ml Folate (8.6-58.9) ng/mL Free T4 0.90 (0.76-1.46) ng/dL TSH 3rd Generation 10.276 H (0.358-3.74) uIU/mL Urine Color (Yellow) Urine Appearance (Clear) Urine pH (5.0-8.0) Ur Specific [place] (1.005-1.030) Urine Protein (Negative) Urine Glucose (UA) (Negative) Urine Ketones (Negative) Urine Occult Blood (Negative) Urine Nitrite (Negative) Urine Bilirubin (Negative) Urine Urobilinogen (0.2-1.0) Ur Leukocyte Esterase (Negative) Urine RBC (0-5) /hpf Urine WBC (0-5) /hpf Ur Epithelial Cells (0-5) /hpf Urine Bacteria (FEW) /hpf Urine Mucus (FEW) /hpf 09/01/18 09/01/18 09/01/18 Range/Units 13:34 14:55 16:20 WBC (3.98-10.04) K/mm3 RBC (3.98-5.22) M/mm3 Hgb (11.2-15.7) gm/L Hct (34.1-44.9) % MCV (79.4-94.8) fl MCH (25.6-32.2) pg MCHC (32.2-35.5) g/dl RDW Std Deviation (36.4-46.3) fL Plt Count (182-369) K/mm3 MPV (9.4-12.3) fl Neut % (Auto) (34.0-71.1) % Lymph % (Auto) (19.3-51.7) % [place] % (Auto) (4.7-12.5) % Eos % (Auto) (0.7-5.8) Baso % (Auto) (0.1-1.2) % Neut # (Auto) (1.56-6.13) K/mm3 Lymph # (Auto) (1.18-3.74) K/mm3 [place] # (Auto) (0.24-0.36) K/mm3 Eos # (Auto) (0.04-0.36) K/mm3 Baso # (Auto) (0.01-0.08) K/mm3 Manual Slide Review Sodium (136-145) mEq/L Potassium (3.5-5.1) mEq/L Chloride (98-107) mEq/L Carbon Dioxide (21-32) mEq/L Anion Gap (5-15) BUN (7-18) mg/dL Creatinine (0.55-1.02) mg/dL Est Cr Clr Drug Dosing mL/min Estimated GFR (MDRD) (>60) mL/min BUN/Creatinine Ratio (14-18) Glucose (74-106) mg/dL Hemoglobin A1c (4.50-6.20) % Lactic Acid 2.3 H (0.4-2.0) mmol/L Calcium (8.5-10.1) mg/dL Magnesium (1.8-2.4) mg/dl Total Bilirubin (0.2-1.0) mg/dL AST (15-37) U/L ALT (14-59) U/L Alkaline Phosphatase (46-116) U/L Troponin I < 0.017 (0.00-0.056) ng/mL C-Reactive Protein (<1.0) mg/dL Total Protein (6.4-8.2) g/dl Albumin (3.4-5.0) g/dl Globulin gm/dL Albumin/Globulin Ratio (1-2) Lipase (73-393) U/L Vitamin D 25-Hydroxy (30.0-100.0) ng/ml Folate (8.6-58.9) ng/mL Free T4 (0.76-1.46) ng/dL TSH 3rd Generation (0.358-3.74) uIU/mL Urine Color Yellow (Yellow) Urine Appearance Cloudy H (Clear) Urine pH 5.5 (5.0-8.0) Ur Specific [place] > or = 1.030 (1.005-1.030) Urine Protein 2+ H (Negative) Urine Glucose (UA) Negative (Negative) Urine Ketones Trace H (Negative) Urine Occult Blood 1+ H (Negative) Urine Nitrite Positive H (Negative) Urine Bilirubin Negative (Negative) Urine Urobilinogen 0.2 (0.2-1.0) Ur Leukocyte Esterase 2+ H (Negative) Urine RBC 0-5 (0-5) /hpf Urine WBC 10-20 H (0-5) /hpf Ur Epithelial Cells 5-10 H (0-5) /hpf Urine Bacteria Many H (FEW) /hpf Urine Mucus Few (FEW) /hpf 09/02/18 09/02/18 09/02/18 Range/Units 06:06 06:06 06:06 WBC 10.10 H (3.98-10.04) K/mm3 RBC 4.10 (3.98-5.22) M/mm3 Hgb 11.5 (11.2-15.7) gm/L Hct 34.2 (34.1-44.9) % MCV 83.4 (79.4-94.8) fl MCH 28.0 (25.6-32.2) pg MCHC 33.6 (32.2-35.5) g/dl RDW Std Deviation 39.5 (36.4-46.3) fL Plt Count 326 (182-369) K/mm3 MPV 8.8 L (9.4-12.3) fl Neut % (Auto) 73.9 H (34.0-71.1) % Lymph % (Auto) 13.5 L (19.3-51.7) % [place] % (Auto) 11.7 (4.7-12.5) % Eos % (Auto) 0.1 L (0.7-5.8) Baso % (Auto) 0.2 (0.1-1.2) % Neut # (Auto) 7.47 H (1.56-6.13) K/mm3 Lymph # (Auto) 1.36 (1.18-3.74) K/mm3 [place] # (Auto) 1.18 H (0.24-0.36) K/mm3 Eos # (Auto) 0.01 L (0.04-0.36) K/mm3 Baso # (Auto) 0.02 (0.01-0.08) K/mm3 Manual Slide Review Sodium (136-145) mEq/L Potassium (3.5-5.1) mEq/L Chloride (98-107) mEq/L Carbon Dioxide (21-32) mEq/L Anion Gap (5-15) BUN (7-18) mg/dL Creatinine (0.55-1.02) mg/dL Est Cr Clr Drug Dosing mL/min Estimated GFR (MDRD) (>60) mL/min BUN/Creatinine Ratio (14-18) Glucose (74-106) mg/dL Hemoglobin A1c (4.50-6.20) % Lactic Acid 0.5 (0.4-2.0) mmol/L Calcium (8.5-10.1) mg/dL Magnesium (1.8-2.4) mg/dl Total Bilirubin (0.2-1.0) mg/dL AST (15-37) U/L ALT (14-59) U/L Alkaline Phosphatase (46-116) U/L Troponin I (0.00-0.056) ng/mL C-Reactive Protein (<1.0) mg/dL Total Protein (6.4-8.2) g/dl Albumin (3.4-5.0) g/dl Globulin gm/dL Albumin/Globulin Ratio (1-2) Lipase (73-393) U/L Vitamin D 25-Hydroxy (30.0-100.0) ng/ml Folate 39.6 (8.6-58.9) ng/mL Free T4 (0.76-1.46) ng/dL TSH 3rd Generation (0.358-3.74) uIU/mL Urine Color (Yellow) Urine Appearance (Clear) Urine pH (5.0-8.0) Ur Specific [place] (1.005-1.030) Urine Protein (Negative) Urine Glucose (UA) (Negative) Urine Ketones (Negative) Urine Occult Blood (Negative) Urine Nitrite (Negative) Urine Bilirubin (Negative) Urine Urobilinogen (0.2-1.0) Ur Leukocyte Esterase (Negative) Urine RBC (0-5) /hpf Urine WBC (0-5) /hpf Ur Epithelial Cells (0-5) /hpf Urine Bacteria (FEW) /hpf Urine Mucus (FEW) /hpf 09/02/18 09/02/18 Range/Units 06:06 07:12 WBC (3.98-10.04) K/mm3 RBC (3.98-5.22) M/mm3 Hgb (11.2-15.7) gm/L Hct (34.1-44.9) % MCV (79.4-94.8) fl MCH (25.6-32.2) pg MCHC (32.2-35.5) g/dl RDW Std Deviation (36.4-46.3) fL Plt Count (182-369) K/mm3 MPV (9.4-12.3) fl Neut % (Auto) (34.0-71.1) % Lymph % (Auto) (19.3-51.7) % [place] % (Auto) (4.7-12.5) % Eos % (Auto) (0.7-5.8) Baso % (Auto) (0.1-1.2) % Neut # (Auto) (1.56-6.13) K/mm3 Lymph # (Auto) (1.18-3.74) K/mm3 [place] # (Auto) (0.24-0.36) K/mm3 Eos # (Auto) (0.04-0.36) K/mm3 Baso # (Auto) (0.01-0.08) K/mm3 Manual Slide Review Sodium 137 (136-145) mEq/L Potassium 2.4 L* (3.5-5.1) mEq/L Chloride 108 H (98-107) mEq/L Carbon Dioxide 14 L (21-32) mEq/L Anion Gap 17.4 H (5-15) BUN 39 H (7-18) mg/dL Creatinine 1.2 H (0.55-1.02) mg/dL Est Cr Clr Drug Dosing 32.82 mL/min Estimated GFR (MDRD) 46 (>60) mL/min BUN/Creatinine Ratio 32.5 H (14-18) Glucose 97 (74-106) mg/dL Hemoglobin A1c 5.40 (4.50-6.20) % Lactic Acid (0.4-2.0) mmol/L Calcium 6.7 L (8.5-10.1) mg/dL Magnesium 1.7 L (1.8-2.4) mg/dl Total Bilirubin (0.2-1.0) mg/dL AST (15-37) U/L ALT (14-59) U/L Alkaline Phosphatase (46-116) U/L Troponin I (0.00-0.056) ng/mL C-Reactive Protein 0.8 (<1.0) mg/dL Total Protein (6.4-8.2) g/dl Albumin (3.4-5.0) g/dl Globulin gm/dL Albumin/Globulin Ratio (1-2) Lipase 169 (73-393) U/L Vitamin D 25-Hydroxy 42.6 (30.0-100.0) ng/ml Folate (8.6-58.9) ng/mL Free T4 (0.76-1.46) ng/dL TSH 3rd Generation (0.358-3.74) uIU/mL Urine Color (Yellow) Urine Appearance (Clear) Urine pH (5.0-8.0) Ur Specific [place] (1.005-1.030) Urine Protein (Negative) Urine Glucose (UA) (Negative) Urine Ketones (Negative) Urine Occult Blood (Negative) Urine Nitrite (Negative) Urine Bilirubin (Negative) Urine Urobilinogen (0.2-1.0) Ur Leukocyte Esterase (Negative) Urine RBC (0-5) /hpf Urine WBC (0-5) /hpf Ur Epithelial Cells (0-5) /hpf Urine Bacteria (FEW) /hpf Urine Mucus (FEW) /hpf Claude Results Last 24 Hours: Microbiology 09/01/18 14:55 Urine Culture - Preliminary Urine, Bladder Gram Negative Rods 09/01/18 13:23 Influenza Type A Antigen Screen - Final Nasopharyngeal Swab NEGATIVE INFLUENZA A VIRUS AG Influenza Type B Antigen Screen - Final NEGATIVE INFLUENZA B VIRUS AG Med Orders - Current: Current Medications Diphenhydramine HCl (Benadryl) 25 mg IVPUSH BEDTIME PRN PRN Reason: Insomnia Docusate Sodium (Colace) 200 mg PO DAILY [facility] Last Admin: 09/02/18 08:35 Dose: 200 mg Famotidine (Pepcid) 20 mg IVPUSH DAILY [facility] Last Admin: 09/02/18 08:35 Dose: 20 mg Heparin Sodium (Porcine) (Heparin Sodium) 5,000 units SUBCUT Q12H [facility] Last Admin: 09/02/18 08:41 Dose: 5,000 units Sodium Chloride (Normal Saline) 1,000 mls @ 125 mls/hr IV ASDIRECTED [facility] Last Admin: 09/02/18 10:05 Dose: 125 mls/hr Ceftriaxone Sodium 2 gm/ (Sodium Chloride) 100 mls @ 200 mls/hr IV Q24H [facility] Last Admin: 09/02/18 00:36 Dose: 200 mls/hr Lorazepam (Ativan) 1 mg PO BID [facility] Last Admin: 09/02/18 08:44 Dose: 1 mg Megestrol Acetate (Megace 40 Mg/Ml Susp) 400 mg PO DAILY [facility] Last Admin: 09/02/18 08:39 Dose: 400 mg Mirtazapine (Remeron) 30 mg PO BEDTIME [facility] Ondansetron HCl (Zofran) 4 mg IVPUSH Q8H PRN PRN Reason: Nausea/Vomiting Polyethylene Glycol (Miralax) 17 gm PO DAILY [facility] Last Admin: 09/02/18 08:44 Dose: 17 gm Potassium Chloride (Klor-Con M20) 40 meq PO Q4H [facility] Stop: 09/02/18 19:46 Last Admin: 09/02/18 08:35 Dose: 40 meq Senna/Docusate Sodium (Senna Plus) 1 tab PO BID PRN PRN Reason: Constipation Sodium Chloride (Saline Flush) 10 ml FLUSH ASDIRECTED PRN PRN Reason: Keep Vein Open Last Admin: 09/01/18 13:17 Dose: 10 ml Discontinued Medications Al Hydroxide/Mg Hydroxide (Mag-Al Plus) 30 ml PO ONETIME ONE Stop: 09/01/18 21:04 Last Admin: 09/01/18 21:25 Dose: 30 ml Diatrizoate Meglum/Diatrizoate Sod (Gastrografin 37%) 90 ml PO ONETIME ONE Stop: 09/01/18 15:28 Last Admin: 09/01/18 16:06 Dose: 90 ml Sodium Chloride (Normal Saline) 1,000 mls @ 1,000 mls/hr IV ONETIME ONE Stop: 09/01/18 14:07 Last Admin: 09/01/18 13:19 Dose: 1,000 mls/hr Sodium Chloride (Normal Saline) 1,000 mls @ 1,000 mls/hr IV ONETIME ONE Stop: 09/01/18 15:35 Last Admin: 09/01/18 14:59 Dose: 1,000 mls/hr Cefepime HCl 2 gm/ Premix 50 mls @ 100 mls/hr IV ONETIME ONE Stop: 09/01/18 15:19 Last Admin: 09/01/18 15:07 Dose: 100 mls/hr Sodium Chloride (Normal Saline) 1,000 mls @ 1,000 mls/hr IV ONETIME ONE Stop: 09/01/18 18:07 Last Admin: 09/01/18 17:46 Dose: 1,000 mls/hr Sodium Chloride (Normal Saline) 1,000 mls @ 999 mls/hr IV ASDIRECTED [facility] Stop: 09/02/18 21:31 Last Admin: 09/01/18 23:13 Dose: 999 mls/hr Ceftriaxone Sodium 2 gm/ (Sodium Chloride) 100 mls @ 200 mls/hr IV Q24H [facility] Last Admin: 09/02/18 00:10 Dose: Not Given Sodium Chloride (Normal Saline) 1,000 mls @ 250 mls/hr IV ASDIRECTED [facility] Stop: 09/03/18 02:29 Last Admin: 09/02/18 04:56 Dose: 250 mls/hr Magnesium Oxide (Magnesium Oxide) 400 mg PO ONETIME ONE Stop: 09/02/18 07:47 Last Admin: 09/02/18 08:38 Dose: 400 mg Megestrol Acetate (Megace) 40 mg PO BID [facility] Last Admin: 09/01/18 21:38 Dose: 40 mg Ondansetron HCl (Zofran) 4 mg IVPUSH ONETIME ONE Stop: 09/01/18 13:09 Last Admin: 09/01/18 13:15 Dose: 4 mg Polyethylene Glycol (Miralax) 17 gm PO ONETIME ONE Stop: 09/01/18 17:01 Last Admin: 09/01/18 17:46 Dose: 17 gm Consult PN Assessment/Plan Procedures: Procedures EMERGENCY DEPT VISIT (02/13/17) IMMUNIZATION ADMIN (02/13/17) INTMD RPR S/A/T/EXT 2.6-7.5 (02/13/17) TDAP VACCINE 7 YRS/> IM (02/13/17) Problem List Initiated/Reviewed/Updated: Yes My Orders Last 24 Hours: My Active Orders 09/02/18 Lunch Soft Diet [DIET] Plan: consult dictated BRAULIO
[2018-09-02] MEDS ORDERED: Polyethylene Glycol 3350 Powder 17 GM Packet PO PRN (14:13)
[2018-09-02] MEDS: Saccharomyces Boulardii (Probiotic) 250 MG Cap PO SCH (20:25)
[2018-09-02] MEDS: Mirtazapine 30 MG Tab PO SCH (20:25)
[2018-09-03] MEDS: cefTRIAXone 2 GM in Sodium Chloride 0.9% 100 ML IV SCH (01:06)
[2018-09-03] MEDS: Sodium Chloride 0.9% 1,000 ML IV SCH ×2 (04:46→13:03)
[2018-09-03 06:50] LABS: HEMOGLOBIN A1C 5.5 % (4.50-6.20)
--- NOTE | 2018-09-03 07:29 | CONS ---
CONSULTING PHYSICIAN: Saad Arguello MD DATE OF CONSULTATION: 09/02/2018 SURGICAL CONSULTATION HISTORY OF PRESENT ILLNESS: This 58-year-old patient presented with weakness, fatigue, and vomiting. History of low potassium and sodium and worked up negative, but her mother had a similar problem. Otherwise, no significant medical problems. The intermittent problem of vomiting has been a chronic problem over the last year and has not been able to keep anything down. She is worked up with a CT scan and suggested a fecal impaction in the rectum and I was called in consultation. The patient since has had bowel movements and is passing gas. She also has a long history of anorexia and difficulty eating and weight is 40 kg, 88 pounds. The patient does state that she has had constipation on and off for some time. The patient has a history of gastric reflux disease. PAST SURGICAL HISTORY: Tubal ligation. SOCIAL HISTORY: Never smoked. No alcohol or drug use. REVIEW OF SYSTEMS: Denies any chest pain, shortness of breath, cough, hoarseness, or wheezing. Does have feeling of faint and weakness. Does have some constipation. PHYSICAL EXAMINATION: GENERAL: Reveals a thin elderly appearing female. VITAL SIGNS: Pulse is 96 and respirations are 16. EYES: Sclerae white. Extraocular muscle motion normal. ORAL CAVITY: Healthy mucous membrane with mouth and tongue. NECK: Supple. LUNGS: Clear. HEART: Heart tones regular rate. ABDOMEN: Shows doughy feeling. No tenderness, guarding, or rebound. RECTAL: Shows an empty rectum. MUSCULOSKELETAL: Shows wasting and slow tendon reflexes. PSYCHIATRIC: Normal. No sensorineural deficit. LABORATORY DATA: Shows TSH of 10. CT scan and x-rays were reviewed. ASSESSMENT: Hypothyroidism. Given history of constipation and weakness, the patient is symptomatic and we would recommend treatment. We would give some MiraLAX only once, but stop that. I think her constipation and impaction have resolved, and we would recommend starting the diet. EDUARDO /[id number]
[2018-09-03] MEDS: Megestrol Susp 40 MG/ML 10 ML UD Cup PO SCH (08:40)
[2018-09-03] MEDS: Heparin Sodium 5,000 Units/ML Vial SUBCUT SCH ×2 (08:41→20:08)
[2018-09-03] MEDS: Docusate Sodium 100 MG Cap PO SCH (08:41)
[2018-09-03] MEDS: LORazepam 1 MG Tab PO SCH ×2 (08:41→20:09)
[2018-09-03] MEDS: Venlafaxine 75 MG Cap.ER PO SCH (08:41)
[2018-09-03] MEDS: Saccharomyces Boulardii (Probiotic) 250 MG Cap PO SCH ×2 (08:41→20:09)
[2018-09-03] MEDS: Famotidine 20 MG/2 ML SDV IVPUSH SCH (08:42)
[2018-09-03] MEDS: Potassium Chloride 10 MEQ in Premix Bag 1 BAG IV SCH ×6 (11:38→18:39)
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
[2018-09-03] MEDS: Mirtazapine 30 MG Tab PO SCH (20:09)
[2018-09-04] MEDS: cefTRIAXone 2 GM in Sodium Chloride 0.9% 100 ML IV SCH (01:18)
[2018-09-04] MEDS ORDERED: Magnesium Sulfate/Water 4 GM in Premix Bag 1 BAG IV ONE (08:15)
[2018-09-04] MEDS ORDERED: Potassium Chloride 20 MEQ Tab.ER PO ONE (08:30)
[2018-09-04] MEDS: Venlafaxine 75 MG Cap.ER PO SCH (09:46)
[2018-09-04] MEDS: Saccharomyces Boulardii (Probiotic) 250 MG Cap PO SCH ×2 (09:46→20:13)
[2018-09-04] MEDS: Docusate Sodium 100 MG Cap PO SCH (09:47)
[2018-09-04] MEDS: LORazepam 1 MG Tab PO SCH ×2 (09:47→20:11)
[2018-09-04] MEDS: Heparin Sodium 5,000 Units/ML Vial SUBCUT SCH ×2 (09:48→20:13)
[2018-09-04] MEDS: Megestrol Susp 40 MG/ML 10 ML UD Cup PO SCH (09:50)
[2018-09-04] MEDS: Famotidine 20 MG/2 ML SDV IVPUSH SCH (09:50)
[2018-09-04] MEDS: Potassium Chloride 10 MEQ in Premix Bag 1 BAG IV SCH ×8 (09:51→18:27)
[2018-09-04] MEDS ORDERED: Sodium Chloride 0.9% 1,000 ML IV SCH (10:15)
[2018-09-04] MEDS ORDERED: Propranolol 60 MG Cap.ER PO ONE (11:20)
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
--- NOTE | 2018-09-04 15:11 | PCM.PN ---
- General Info Date of Service: 09/04/18 Admission Dx/Problem (Free Text): Admission Diagnosis/Problem Admission Diagnosis/Problem UTI, Urinary tract infectious disease Subjective Update: In to see Molly. She is sitting up in bed visiting with a friend. She has no current complaints except that she is concerned she hasn't had a BM today. I told her that we will continue with prune juice and as long as she keeps her appetite and intake up, it will likely resolve. She states she understands. No concerns from nursing. She has been started on Inderal for tachycardia, most likely 2/2 anxiety. She is unable to take Ativan for anxiety as she is in AA. Her potassium was again dangerously low today (possibly also contributing to the tachycardia) and so she will remain here until we are able to get her potassium up to a normal range. She states this is a chronic issue. DV and SW also working with her to find her a safe place to D/C to as she does not feel safe going home at this time. Will D/C Rocephin and start Keflex 500mg BID today for continued treatment of UTI. Functional Status: Reports: Pain Controlled, Tolerating Diet, Ambulating, Urinating - Review of Systems General: Reports: No Symptoms. Denies: Fever, Chills HEENT: Reports: No Symptoms Pulmonary: Reports: No Symptoms. Denies: Shortness of Breath, Cough Cardiovascular: Reports: No Symptoms. Denies: Chest Pain Gastrointestinal: Reports: Constipation (last BM yesterday (diarrhea)), Decreased Appetite (Improving). Denies: Abdominal Pain, Diarrhea, Nausea, Vomiting Genitourinary: Reports: No Symptoms Musculoskeletal: Reports: No Symptoms Skin: Reports: No Symptoms Neurological: Reports: No Symptoms Psychiatric: Reports: Anxiety - Patient Data Vitals - Most Recent: Last Vital Signs Temp 99.0 F 09/04/18 12:07 Pulse 102 H 09/04/18 12:07 Resp 20 09/04/18 12:07 BP 113/61 09/04/18 12:07 Pulse Ox 98 09/04/18 12:07 Weight - Most Recent: 89 lb 8 oz I&O - Last 24 Hours: Intake & Output 09/04/18 09/04/18 09/04/18 06:59 14:59 22:59 Intake Total 900 240 Output Total 1800 Balance -900 240 Lab Results Last 24 Hours: Laboratory Results - last 24 hr 09/02/18 09/04/18 09/04/18 Range/Units 06:06 06:09 06:09 WBC 6.50 (3.98-10.04) K/mm3 RBC 4.01 (3.98-5.22) M/mm3 Hgb 11.4 (11.2-15.7) gm/L Hct 33.6 L (34.1-44.9) % MCV 83.8 (79.4-94.8) fl MCH 28.4 (25.6-32.2) pg MCHC 33.9 (32.2-35.5) g/dl RDW Std Deviation 40.5 (36.4-46.3) fL Plt Count 274 (182-369) K/mm3 MPV 9.1 L (9.4-12.3) fl Neut % (Auto) 52.9 (34.0-71.1) % Lymph % (Auto) 33.7 (19.3-51.7) % [place] % (Auto) 9.4 (4.7-12.5) % Eos % (Auto) 2.9 (0.7-5.8) Baso % (Auto) 0.3 (0.1-1.2) % Neut # (Auto) 3.44 (1.56-6.13) K/mm3 Lymph # (Auto) 2.19 (1.18-3.74) K/mm3 [place] # (Auto) 0.61 H (0.24-0.36) K/mm3 Eos # (Auto) 0.19 (0.04-0.36) K/mm3 Baso # (Auto) 0.02 (0.01-0.08) K/mm3 Sodium 142 (136-145) mEq/L Potassium 2.5 L (3.5-5.1) mEq/L Chloride 111 H (98-107) mEq/L Carbon Dioxide 21 (21-32) mEq/L Anion Gap 12.5 (5-15) BUN 9 (7-18) mg/dL Creatinine 0.6 (0.55-1.02) mg/dL Est Cr Clr Drug Dosing 66.30 mL/min Estimated GFR (MDRD) > 60 (>60) mL/min BUN/Creatinine Ratio 15.0 (14-18) Glucose 85 (74-106) mg/dL Lactic Acid (0.4-2.0) mmol/L Calcium 7.3 L (8.5-10.1) mg/dL Magnesium 1.5 L (1.8-2.4) mg/dl C-Reactive Protein < 0.2 (<1.0) mg/dL Lipase 315 (73-393) U/L Cortisol 12.1 ug/dL 09/04/18 Range/Units 06:09 WBC (3.98-10.04) K/mm3 RBC (3.98-5.22) M/mm3 Hgb (11.2-15.7) gm/L Hct (34.1-44.9) % MCV (79.4-94.8) fl MCH (25.6-32.2) pg MCHC (32.2-35.5) g/dl RDW Std Deviation (36.4-46.3) fL Plt Count (182-369) K/mm3 MPV (9.4-12.3) fl Neut % (Auto) (34.0-71.1) % Lymph % (Auto) (19.3-51.7) % [place] % (Auto) (4.7-12.5) % Eos % (Auto) (0.7-5.8) Baso % (Auto) (0.1-1.2) % Neut # (Auto) (1.56-6.13) K/mm3 Lymph # (Auto) (1.18-3.74) K/mm3 [place] # (Auto) (0.24-0.36) K/mm3 Eos # (Auto) (0.04-0.36) K/mm3 Baso # (Auto) (0.01-0.08) K/mm3 Sodium (136-145) mEq/L Potassium (3.5-5.1) mEq/L Chloride (98-107) mEq/L Carbon Dioxide (21-32) mEq/L Anion Gap (5-15) BUN (7-18) mg/dL Creatinine (0.55-1.02) mg/dL Est Cr Clr Drug Dosing mL/min Estimated GFR (MDRD) (>60) mL/min BUN/Creatinine Ratio (14-18) Glucose (74-106) mg/dL Lactic Acid 0.7 (0.4-2.0) mmol/L Calcium (8.5-10.1) mg/dL Magnesium (1.8-2.4) mg/dl C-Reactive Protein (<1.0) mg/dL Lipase (73-393) U/L Cortisol ug/dL Claude Results Last 24 Hours: Microbiology 09/01/18 13:24 Aerobic Blood Culture - Preliminary Blood - Venous NO GROWTH AFTER 3 DAYS Anaerobic Blood Culture - Preliminary NO GROWTH AFTER 3 DAYS 09/01/18 13:34 Aerobic Blood Culture - Preliminary Blood - Venous - Lab Draw NO GROWTH AFTER 3 DAYS Anaerobic Blood Culture - Preliminary NO GROWTH AFTER 3 DAYS Med Orders - Current: Current Medications Cephalexin (Keflex) 500 mg PO Q12H [facility] Diphenhydramine HCl (Benadryl) 25 mg IVPUSH BEDTIME PRN PRN Reason: Insomnia Docusate Sodium (Colace) 200 mg PO DAILY [facility] Last Admin: 09/04/18 09:47 Dose: 200 mg Famotidine (Pepcid) 20 mg PO DAILY [facility] Heparin Sodium (Porcine) (Heparin Sodium) 5,000 units SUBCUT Q12H [facility] Last Admin: 09/04/18 09:48 Dose: 5,000 units Potassium Chloride 10 meq/ (Premix) 100 mls @ 100 mls/hr IV Q1H [facility] Stop: 09/04/18 16:14 Last Admin: 09/04/18 14:51 Dose: 100 mls/hr Sodium Chloride (Normal Saline) 1,000 mls @ 50 mls/hr IV ASDIRECTED [facility] Last Admin: 09/04/18 11:40 Dose: 50 mls/hr Lorazepam (Ativan) 1 mg PO BID [facility] Last Admin: 09/04/18 09:47 Dose: 1 mg Magnesium Sulfate (Pharmacy To Dose - Magnesium Replacement) 0 dose .XX DAILY PRN PRN Reason: RX TO WATCH MAG Megestrol Acetate (Megace 40 Mg/Ml Susp) 400 mg PO DAILY [facility] Last Admin: 09/04/18 09:50 Dose: 400 mg Mirtazapine (Remeron) 30 mg PO BEDTIME [facility] Last Admin: 09/03/18 20:09 Dose: 30 mg Non-Formulary Medication (Potassium Chloride [Potassium Chloride]) 1 tab PO TID [facility] Ondansetron HCl (Zofran) 4 mg IVPUSH Q8H PRN PRN Reason: Nausea/Vomiting Polyethylene Glycol (Miralax) 17 gm PO DAILY PRN PRN Reason: Constipation Potassium Chloride (Pharmacy To Dose - Potassium Replacement) 0 dose .XX DAILY PRN PRN Reason: RX TO WATCH K Propranolol HCl (Inderal La) 60 mg PO DAILY [facility] Saccharomyces Boulardii (Florastor) 250 mg PO BID [facility] Last Admin: 09/04/18 09:46 Dose: 250 mg Senna/Docusate Sodium (Senna Plus) 1 tab PO BID PRN PRN Reason: Constipation Sodium Chloride (Saline Flush) 10 ml FLUSH ASDIRECTED PRN PRN Reason: Keep Vein Open Last Admin: 09/01/18 13:17 Dose: 10 ml Venlafaxine HCl (Effexor Xr) 37.5 mg PO DAILY [facility] Stop: 09/16/18 09:01 Venlafaxine HCl (Effexor Xr) 75 mg PO DAILY [facility] Stop: 09/09/18 09:01 Last Admin: 09/04/18 09:46 Dose: 75 mg Venlafaxine HCl (Effexor Xr) 37.5 mg PO Q2D [facility] Stop: 09/23/18 09:01 Discontinued Medications Al Hydroxide/Mg Hydroxide (Mag-Al Plus) 30 ml PO ONETIME ONE Stop: 09/01/18 21:04 Last Admin: 09/01/18 21:25 Dose: 30 ml Diatrizoate Meglum/Diatrizoate Sod (Gastrografin 37%) 90 ml PO ONETIME ONE Stop: 09/01/18 15:28 Last Admin: 09/01/18 16:06 Dose: 90 ml Famotidine (Pepcid) 20 mg IVPUSH DAILY [facility] Last Admin: 09/04/18 09:50 Dose: 20 mg Sodium Chloride (Normal Saline) 1,000 mls @ 1,000 mls/hr IV ONETIME ONE Stop: 09/01/18 14:07 Last Admin: 09/01/18 13:19 Dose: 1,000 mls/hr Sodium Chloride (Normal Saline) 1,000 mls @ 1,000 mls/hr IV ONETIME ONE Stop: 09/01/18 15:35 Last Admin: 09/01/18 14:59 Dose: 1,000 mls/hr Cefepime HCl 2 gm/ Premix 50 mls @ 100 mls/hr IV ONETIME ONE Stop: 09/01/18 15:19 Last Admin: 09/01/18 15:07 Dose: 100 mls/hr Sodium Chloride (Normal Saline) 1,000 mls @ 1,000 mls/hr IV ONETIME ONE Stop: 09/01/18 18:07 Last Admin: 09/01/18 17:46 Dose: 1,000 mls/hr Sodium Chloride (Normal Saline) 1,000 mls @ 999 mls/hr IV ASDIRECTED [facility] Stop: 09/02/18 21:31 Last Admin: 09/01/18 23:13 Dose: 999 mls/hr Ceftriaxone Sodium 2 gm/ (Sodium Chloride) 100 mls @ 200 mls/hr IV Q24H [facility] Last Admin: 09/02/18 00:10 Dose: Not Given Sodium Chloride (Normal Saline) 1,000 mls @ 250 mls/hr IV ASDIRECTED [facility] Stop: 09/03/18 02:29 Last Admin: 09/02/18 04:56 Dose: 250 mls/hr Sodium Chloride (Normal Saline) 1,000 mls @ 125 mls/hr IV ASDIRECTED [facility] Last Admin: 09/03/18 13:03 Dose: 125 mls/hr Ceftriaxone Sodium 2 gm/ (Sodium Chloride) 100 mls @ 200 mls/hr IV Q24H [facility] Last Admin: 09/04/18 01:18 Dose: 200 mls/hr Potassium Chloride 10 meq/ (Premix) 100 mls @ 100 mls/hr IV Q1H [facility] Stop: 09/03/18 17:29 Last Admin: 09/03/18 18:39 Dose: 100 mls/hr Magnesium Sulfate 4 gm/ Premix 100 mls @ 25 mls/hr IV ONETIME ONE Stop: 09/04/18 12:14 Last Admin: 09/04/18 09:51 Dose: 25 mls/hr Magnesium Oxide (Magnesium Oxide) 400 mg PO ONETIME ONE Stop: 09/02/18 07:47 Last Admin: 09/02/18 08:38 Dose: 400 mg Megestrol Acetate (Megace) 40 mg PO BID [facility] Last Admin: 09/01/18 21:38 Dose: 40 mg Ondansetron HCl (Zofran) 4 mg IVPUSH ONETIME ONE Stop: 09/01/18 13:09 Last Admin: 09/01/18 13:15 Dose: 4 mg Polyethylene Glycol (Miralax) 17 gm PO ONETIME ONE Stop: 09/01/18 17:01 Last Admin: 09/01/18 17:46 Dose: 17 gm Polyethylene Glycol (Miralax) 17 gm PO DAILY [facility] Last Admin: 09/02/18 08:44 Dose: 17 gm Potassium Chloride (Klor-Con M20) 40 meq PO Q4H [facility] Stop: 09/02/18 19:46 Last Admin: 09/02/18 20:24 Dose: 40 meq Potassium Chloride (Klor-Con M20) 40 meq PO ONETIME ONE Stop: 09/04/18 08:31 Last Admin: 09/04/18 09:46 Dose: 40 meq Propranolol HCl (Inderal La) 60 mg PO ONETIME ONE Stop: 09/04/18 11:21 Last Admin: 09/04/18 11:40 Dose: 60 mg - Exam Quality Assessment: DVT Prophylaxis General: Alert, Oriented, Cooperative, No Acute Distress HEENT: Pupils Equal, Pupils Reactive, EOMI, Mucous Membr. Moist/Aucilla Neck: Supple Lungs: Clear to Auscultation, Normal Respiratory Effort Cardiovascular: Regular Rhythm, Tachycardia GI/Abdominal Exam: Normal Bowel Sounds, Soft, Non-Tender, No Organomegaly, No Distention, No Abnormal Bruit, No Mass, Pelvis Stable (Female) Exam: Deferred Back Exam: Normal Inspection Extremities: Normal Inspection, Normal Range of Motion, Non-Tender, No Pedal Edema, Normal Capillary Refill Peripheral Pulses: 1+: Posterior Tibial (L), Posterior Tibial (R), Dorsalis Pedis (L), Dorsalis Pedis (R) Skin: Warm, Dry, Intact Neurological: No New Focal Deficit Psy/Mental Status: Alert, Anxious - Problem List & Annotations (1) Pancreatitis SNOMED Code(s): 10299504 Code(s): K85.90 - ACUTE PANCREATITIS WITHOUT NECROSIS OR INFECTION, UNSP Status: Acute Priority: High Current Visit: Yes Qualifiers: Chronicity: acute Pancreatitis type: unspecified pancreatitis type Acute pancreatitis complication: unspecified Qualified Code(s): K85.90 - Acute pancreatitis without necrosis or infection, unspecified (2) UTI (urinary tract infection) SNOMED Code(s): 88691241 Code(s): N39.0 - URINARY TRACT INFECTION, SITE NOT SPECIFIED Status: Acute Priority: High Current Visit: Yes Qualifiers: Urinary tract infection type: acute cystitis Hematuria presence: with hematuria Qualified Code(s): N30.01 - Acute cystitis with hematuria (3) Eating disorder SNOMED Code(s): 15900034 Code(s): F50.9 - EATING DISORDER, UNSPECIFIED Status: Acute Priority: High Current Visit: Yes (4) Cachectic SNOMED Code(s): 040917072 Code(s): R64 - CACHEXIA Status: Acute Priority: High Current Visit: Yes (5) Severely underweight adult SNOMED Code(s): 641396529 Code(s): R63.6 - UNDERWEIGHT Status: Acute Priority: High Current Visit : Yes (6) Depression SNOMED Code(s): 92056599 Code(s): F32.9 - MAJOR DEPRESSIVE DISORDER, SINGLE EPISODE, UNSPECIFIED Status: Chronic Priority: Medium Current Visit: Yes Qualifiers: Depression Type: unspecified Qualified Code(s): F32.9 - Major depressive disorder, single episode, unspecified (7) Fecal impaction SNOMED Code(s): 35941390 Code(s): K56.41 - FECAL IMPACTION Status: Acute Priority: High Current Visit: Yes (8) ARF (acute renal failure) SNOMED Code(s): 86085736 Code(s): N17.9 - ACUTE KIDNEY FAILURE, UNSPECIFIED Status: Acute Priority : High Current Visit: Yes Qualifiers: Acute renal failure type: unspecified Qualified Code(s): N17.9 - Acute kidney failure, unspecified (9) Subclinical hypothyroidism SNOMED Code(s): 54835487 Code(s): E03.9 - HYPOTHYROIDISM, UNSPECIFIED Status: Acute Priority: High Current Visit: Yes (10) Hypokalemia SNOMED Code(s): 05743453 Code(s): E87.6 - HYPOKALEMIA Status: Acute Priority: High Current Visit : Yes - Problem List Review Problem List Initiated/Reviewed/Updated: Yes - My Orders Last 24 Hours: My Active Orders 09/04/18 21:00 Potassium Chloride [Potassium Chloride] 1 tab PO TID - Plan Plan:: Assessment Impression: Acute: AUTI, Improving * WBC 27.91--> 10.10--> 6.48 * Risk factor: Decreased urinary output, h/o urinary incontinence, h/o recurrent UTI * UA in ED impressive for UTI * Urine culture shows E Coli * Blood culture shows no growth * Cefepime started in ED--> D/C start Rocephin--> Start Keflex 500mg BID Eating disorder, NOS * Cachetic appearance, Severely under weight, BMI 15.5 * Significant weight loss--> lost 20lb in last 2 years * Pt states she "just doesn't have an appetite" and is "concerned about my weight loss" * h/o bulimia in college * Megace for appetite stimulation * Advance diet as tolerated * Dietary consult * Consult Psychiatrist Dr. Reed: * Recurrent MDD, Anxiety * Discontinue Effexor XR * Ativan 1mg BID, Remeron 30mg QHS * AA rep, Pastoral guidance Hypokalemia, Improving * Acute on Chronic * Likely 2/2 decreased intake and dilution d/t IVF * 2.4--> 2.7--> 2.5 * Monitor and Replenish PRN Subclinical hypothyroid * TSH 10.276, T4 0.90 * Recommend f/u with endocrinology outpt Resolved: Acute pancreatitis, GB sludge * Lipase elevated 621--> 169 * Abdominal U/S: Small non-shadowing gallstone versus small sludge ball within the gallbladder. No gallbladder wall thickening or biliary duct dilatation is seen. * Consult General Surgeon Dr. Sorensen Heme concentration * Likely 2/2 Dehydration * RBC 6.41--> 4.10, Hgb 18.2--> 11.5, Hct 53--> 34.2, Plt 604--> 326 * IVF Hypomagnesemia * Likely 2/2 decreased intake and dilution d/t IVF * 1.7--> 1.8 * Monitor and Replenish PRN Acute renal failure, Improving * Likely 2/2 dehydration * Unsure of baseline renal function * GFR 15--> 46--> >60, Cr 3.2--> 1.2--> 0.7, BUN 62--> 39--> 13 * IVF * Monitor Fecal impaction--> RESOLVED PER GENERAL SURGEON DR. SORENSEN * Likely 2/2 decreased intake, dehydration, subclinical hypothyroid * Pt c/o diarrhea * CT Abdomen Pelvis in ED: * Nonobstructing stone within each kidney. * 2. Increased stool within the rectum compatible with mild fecal impaction. * 3. Small hiatal hernia. Nothing acute is appreciated on CT study of the abdomen and pelvis. * Advance diet as tolerated * Stool Softener, laxatives, prune juice, enemas PRN * Dietary Consult * Consult General Surgeon Dr. Sorensen Anemia * Likely 2/2 dilution from IVF * 10.6-->11.4 * Monitor * D/C IVF Chronic: GERD Urinary Incontinence Recurrent UTI Anxiety Vit D deficiency--> WNL here Polycythemia Major depression * Consult Psychiatrist Dr. Reed Plan: Admit to Medical Floor Routine AM labs Colon retraining, Scheduled and prn laxatives IVF aggressively Psych consult re: major depression, eating disorder Gen surg consult re: GB/pancreatitis; fecal impaction 2D echo re: cardiomyopathy NPO--> Clear Liquids PT/OT CM/SW DVT/GI prophylaxis Code: Full Code; PCP: MEHUL Castaneda Discharge pending potassium and plan for safe place to stay
[2018-09-04] MEDS: Mirtazapine 30 MG Tab PO SCH (20:13)
[2018-09-04] MEDS ORDERED: Non-Formulary Medication 1 Each (Potassium Chloride [Potassium Chloride] 1 TAB) PO SCH (21:00)
[2018-09-04] MEDS: Cephalexin 500 MG Cap PO SCH (21:25)
[2018-09-05] MEDS ORDERED: Magnesium Oxide 400 MG Tab PO ONE (09:00)
[2018-09-05] MEDS ORDERED: Famotidine 20 MG Tab PO SCH (09:00)
[2018-09-05] MEDS ORDERED: Potassium Chloride 20 MEQ Tab.ER PO SCH (09:00)
[2018-09-05] MEDS ORDERED: Propranolol 60 MG Cap.ER PO SCH (09:00)
[2018-09-05] MEDS: Docusate Sodium 100 MG Cap PO SCH (09:41)
[2018-09-05] MEDS: Venlafaxine 75 MG Cap.ER PO SCH (09:41)
[2018-09-05] MEDS: Cephalexin 500 MG Cap PO SCH (09:41)
[2018-09-05] MEDS: Saccharomyces Boulardii (Probiotic) 250 MG Cap PO SCH (09:41)
[2018-09-05] MEDS: Megestrol Susp 40 MG/ML 10 ML UD Cup PO SCH (09:42)
[2018-09-05] MEDS: Heparin Sodium 5,000 Units/ML Vial SUBCUT SCH (09:42)
[2018-09-05] MEDS: LORazepam 1 MG Tab PO SCH (09:42)
[2018-09-05 12:14] VITALS: BP 106/63
[2018-09-05] MEDS ORDERED: Folic Acid 1 MG Tab PO SCH (15:30)
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
[2018-09-10] MEDS ORDERED: Venlafaxine 37.5 MG Cap.ER PO SCH (09:00)
[2018-09-17] MEDS ORDERED: Venlafaxine 37.5 MG Cap.ER PO SCH (09:00)
== END 2018-09-05 17:34 | disposition home or self-care (01) | DRG 282 ==
LOC: JD.ED 12:42 → JD.MS 18:40
PROVIDERS: ADMIT Internal Medicine Cardiovascular Disease; ATTEND Internal Medicine Cardiovascular Disease
DX: K85.90 Acute pancreatitis without necrosis or infection, unspecified (principal); N17.9 Acute kidney failure, unspecified; R64 Cachexia; F33.9 Major depressive disorder, recurrent, unspecified; F50.9 Eating disorder, unspecified; E83.42 Hypomagnesemia; D75.1 Secondary polycythemia; N39.0 Urinary tract infection, site not specified; Z68.1 Body mass index [BMI] 19.9 or less, adult; K56.41 Fecal impaction; E03.9 Hypothyroidism, unspecified; E87.6 Hypokalemia; B96.20 Unspecified Escherichia coli [E. coli] as the cause of diseases classified elsewhere; F41.9 Anxiety disorder, unspecified; E86.0 Dehydration; D64.89 Other specified anemias; K21.9 Gastro-esophageal reflux disease without esophagitis; R32 Unspecified urinary incontinence; E55.9 Vitamin D deficiency, unspecified; H54.7 Unspecified visual loss; Z79.899 Other long term (current) drug therapy; Z87.440 Personal history of urinary (tract) infections
CPT/HCPCS: 36415; 74022; 74022-26; 74176; 74176-26; 76705; 76705-26; 80048; 80053; 81001; 82306; 82533; 82746; 83036; 83605; 83690; 83735; 84132; 84439; 84443; 84484; 85025; 86140; 87040; 87086; 87088; 87186; 87804; 93005; 93306; 96361; 96365; 96375; 97161-GP; 97165-GO; 99285; 99285-25; A9270-GY; J0692; J0696; J1644; J2405; J3475; J3480; J3490; J7030; J7040; Q9963

== ENCOUNTER 2019-05-13 13:26 | Emergency (ER) | payer BC ==
[2019-05-13] MEDS ORDERED: Lactated Ringers 1,000 ML IV ONE (13:59)
[2019-05-13] MEDS ORDERED: Sodium Chloride 0.9% 10 ML Syringe FLUSH PRN (13:59)
[2019-05-13] MEDS ORDERED: Ondansetron 4 MG/2 ML SDV IVPUSH ONE (13:59)
[2019-05-13] MEDS ORDERED: cefTRIAXone 1 GM in Sodium Chloride 0.9% 100 ML IV ONE (14:52)
[2019-05-13] MEDS ORDERED: Sodium Chloride 0.9% 1,000 ML IV SCH (15:00)
--- NOTE | 2019-05-13 15:28 | EDM.PDOC ---
ED HPI GENERAL MEDICAL PROBLEM - General Chief Complaint: Back Pain or Injury Stated Complaint: BACK PAIN SENT BY [facility] FOR [facility] Time Seen by Provider: 05/13/19 13:45 Source of Information: Reports: Patient, Provider, RN Notes Reviewed - History of Present Illness INITIAL COMMENTS - FREE TEXT/NARRATIVE: 59-year-old female has been referred here from [facility] for further treatment, probable hospital admission for urosepsis, possible sepsis. She had onset of quite severe low back pain yesterday associated with nausea, dry heaves. She started running fever this morning. She presented to [facility] and was found to have UTI along with fever, elevated white blood count 24,000 low sodium of 123, potassium 5.5. On arrival to ED her temp was 101. She continues to have low back discomfort bilateral. No major abdominal pain at this time. She has had continued nausea, has not been able to eat or drink much yesterday or today. Her mouth does feel very dry. She also has had occasional nonproductive cough. She states she has not been voiding much. No voiding dysuria or urgency. No hematuria. She states she does have history of pancreatitis. No prior abdominal surgeries. Back Pain Score (Numeric/FACES): 6 - Related Data Allergies Allergy/AdvReac Type Severity Reaction Status Date / Time No Known Allergies Allergy Verified 05/13/19 13:42 Home Meds: Home Meds Potassium Chloride 1 tab PO TID 09/02/18 [History] Venlafaxine HCl [Venlafaxine ER] 1 tab PO DAILY 09/02/18 [History] Folic Acid 1 mg PO DAILY 30 Days #30 tablet 09/05/18 [Rx] Megestrol [Megace 40 MG/ML Susp] 400 mg PO DAILY 30 Days #30 cup 09/05/18 [Rx] Mirtazapine [Remeron] 30 mg PO BEDTIME 30 Days #30 tablet 09/05/18 [Rx] Propranolol [Inderal LA] 60 mg PO DAILY #30 cap.er 09/05/18 [Rx] Saccharomyces Boulardii [Florastor] 250 mg PO BID 15 Days #30 cap 09/05/18 [Rx] Venlafaxine [Effexor XR] 37.5 mg PO DAILY 7 Days #7 cap.er 09/05/18 [Rx] Venlafaxine [Effexor XR] 37.5 mg PO Q1D 7 Days #4 cap.er 09/05/18 [Rx] Venlafaxine [Effexor XR] 75 mg PO DAILY 4 Days #4 cap.er 09/05/18 [Rx] cephALEXin [Keflex] 500 mg PO Q12H 3 Days #6 cap 09/05/18 [Rx] Cefdinir 300 mg PO BID #20 capsule 05/13/19 [Rx] Ondansetron [Zofran ODT] 4 mg PO Q8HR PRN #7 tab.dis 05/13/19 [Rx] Past Medical History HEENT History: Reports: Impaired Vision Other HEENT History: wears corrective lenses Cardiovascular History: Reports: None Gastrointestinal History: Reports: GERD Genitourinary History: Reports: Urinary Incontinence, UTI, Recurrent HERB DOCTOR History: Reports: Musculoskeletal History: Reports: None Neurological History: Reports: None Psychiatric History: Reports: Anxiety, Depression, Eating Disorders Other Psychiatric History: Patient stated she was bullemic in high school into college Endocrine/Metabolic History: Reports: Vitamin D Deficiency Hematologic History: Reports: Polycythemia - Past Surgical History Female Surgical History: Reports: Tubal Ligation Social & Family History - Family History Neurological: Reports: Alzheimers Disease Oncologic: Reports: Other (See Below) Other Oncologic Family History: Brother had cancer started in spine and spread to bones - Tobacco Use Smoking Status *Q: Never Smoker - Caffeine Use Caffeine Use: Reports: None Caffeine Use Comment: drinks about 1-2 cups of coffee per day - Recreational Drug Use Recreational Drug Use: No ED ROS GENERAL - Review of Systems Review Of Systems: See Below Constitutional: Reports: Fever, Chills HEENT: Reports: Other (Mouth is dry). Denies: Throat Pain Respiratory: Denies: Shortness of Breath Cardiovascular: Denies: Chest Pain GI/Abdominal: Reports: Abdominal Pain (Mild intermittent), Decreased Appetite, Nausea, Vomiting (Mostly dry heaves) Musculoskeletal: Reports: Back Pain (Low back) Skin: Reports: No Symptoms Neurological: Reports: Dizziness (Mild) ED EXAM, GENERAL - Physical Exam Exam: See Below General Appearance: Alert, No Apparent Distress Eye Exam: Bilateral Eye: PERRL Throat/Mouth: Other Head: Atraumatic. No: Facial Swelling Neck: Supple Respiratory/Chest: No Respiratory Distress, Lungs Clear, Normal Breath Sounds Cardiovascular: Tachycardia GI/Abdominal: Soft, Tender (Mild tenderness mid and upper abdomen, lower abdomen nontender). No: Guarding, Rebound Back Exam: CVA Tenderness (L) (Mild) Extremities: Normal Inspection, Normal Range of Motion Neurological: Alert, Oriented, No Motor/Sensory Deficits Skin Exam: Warm, Dry, Normal Color Course - Vital Signs Last Recorded V/S: Last Vital Signs Temp 101 F H 05/13/19 13:40 Pulse 115 H 05/13/19 18:20 Resp 18 05/13/19 18:20 BP 97/80 05/13/19 18:20 Pulse Ox 97 05/13/19 18:20 - Orders/Labs/Meds Orders: Active Orders 24 hr Category Date Time Status Peripheral IV Care [RC] . DIRECTED Care 05/13/19 14:00 Active CULTURE BLOOD [BC] Stat Lab 05/13/19 14:22 Results CULTURE BLOOD [BC] Stat Lab 05/13/19 14:47 Results Peripheral IV Insertion Adult [OM.PC] Stat Oth 05/13/19 13:58 Ordered Labs: Laboratory Tests 05/13/19 05/13/19 05/13/19 Range/Units 14:22 14:42 14:47 PT 11.1 (9.7-12.0) SECONDS INR 1.02 Potassium 4.9 (3.5-5.1) mEq/L Lactic Acid 1.4 (0.4-2.0) mmol/L Lipase 192 (73-393) U/L Meds: Medications Discontinued Medications Generic Name Dose Route Start Last Admin Trade Name Freq PRN Reason Stop Dose Admin Lactated Ringer's 1,000 mls @ 999 mls/hr 05/13/19 13:59 05/13/19 14:37 Ringers, Lactated IV 05/13/19 14:59 999 mls/hr .BOLUS ONE Administration Ceftriaxone Sodium 1 gm/ 100 mls @ 200 mls/hr 05/13/19 14:52 05/13/19 15:02 Sodium Chloride IV 05/13/19 15:21 200 mls/hr ONETIME ONE Administration Sodium Chloride 1,000 mls @ 999 mls/hr 05/13/19 15:00 05/13/19 16:44 Normal Saline IV 999 mls/hr ONETIME VIRGILIO Administration Ondansetron HCl 4 mg 05/13/19 13:59 10/09/19 17:08 Zofran IVPUSH 05/13/19 14:00 Not Given ONETIME ONE Sodium Chloride 10 ml 05/13/19 13:59 05/13/19 14:36 Saline Flush FLUSH 10 ml ASDIRECTED PRN Administration Keep Vein Open - Re-Assessments/Exams Free Text/Narrative Re-Assessment/Exam: 05/13/19 18:06. She was sent here to the ED for further treatment. Labs sent over from clinic and reviewed. Of note strong evidence for UTI, WBC 24,000. With low back pain and tenderness working dx is UTI with pyelonephritis. We did get blood cultures times 2. Lactic acid and lipase not elevated. We gave 1 gram rocephin IV. Of note she only wieghs 45 kg or about 99 lbs. I have strongly encouraged hospital admission but she states she "feels better". Wants to go home and take oral meds. I have agreed and she has agreed to come back for 1 more dose of IV rocephin , 05/14 and than go to oral meds as tolerated. We have given 2 liters IV fluid. She will return to ED if symptoms worsening, if above plan not working out. Departure - Departure Time of Disposition: 17:56 Disposition: Home, Self-Care 01 Condition: Fair Clinical Impression: Pyelonephritis - Discharge Information Prescriptions: Ondansetron [Zofran ODT] 4 mg PO Q8HR PRN #7 tab.dis PRN Reason: Nausea/Vomiting Cefdinir 300 mg PO BID #20 capsule Instructions: Pyelonephritis, Adult, [id number] Referrals: Shelli Laws, [employer] [Primary Care Provider] - Forms: ED Department Discharge Additional Instructions: Clear liquids and very bland diet as tolerated, return to hospital anytime after 1:00 tomorrow for your next of IV antibiotics. You will be given one further dose of Rocephin IV tomorrow and then the IV can be discontinued if you are continuing to feel better. Start oral Cefdinir 300 mg Saturday morning and take that twice daily for 10 days. Zofran 4 mg ODT if needed for any further nausea or vomiting. [facility] Try see Shelli at the clinic Saturday for follow up. Culture results should be available at that time. Call clinic for appointment. Return to ED if symptoms worsening in any way. - My Orders Last 24 Hours: My Active Orders 05/13/19 13:58 Peripheral IV Insertion Adult [OM.PC] Stat 05/13/19 14:00 Peripheral IV Care [RC] . DIRECTED 05/13/19 14:22 CULTURE BLOOD [BC] Stat 05/13/19 14:47 CULTURE BLOOD [BC] Stat - Assessment/Plan Last 24 Hours: My Active Orders 05/13/19 13:58 Peripheral IV Insertion Adult [OM.PC] Stat 05/13/19 14:00 Peripheral IV Care [RC] . DIRECTED 05/13/19 14:22 CULTURE BLOOD [BC] Stat 05/13/19 14:47 CULTURE BLOOD [BC] Stat
[2019-05-13 18:28] VITALS: BP 97/80; PULSE 115
== END 2019-05-13 18:20 | disposition home or self-care (01) ==
LOC: JD.ED 13:26
DX: N12 Tubulo-interstitial nephritis, not specified as acute or chronic (principal); F41.9 Anxiety disorder, unspecified; F32.9 Major depressive disorder, single episode, unspecified
CPT/HCPCS: 36415; 83605; 83690; 84132; 85610; 87040; 96361; 96365; 99283; J0696; J7030; J7040; J7120

== ENCOUNTER 2019-05-14 19:29 | Inpatient (IN) | payer BC ==
[2019-05-14] MEDS ORDERED: Ondansetron 4 MG/2 ML SDV IVPUSH ONE (19:52)
--- NOTE | 2019-05-14 19:52 | EDM.PDOC ---
ED HPI GENERAL MEDICAL PROBLEM - General Chief Complaint: Genitourinary Problem Stated Complaint: BLOOD INFECTION Time Seen by Provider: 05/14/19 19:40 Source of Information: Reports: Patient, Family (spouse) History Limitations: Reports: No Limitations - History of Present Illness INITIAL COMMENTS - FREE TEXT/NARRATIVE: 51-year-old female returns to the ED due to continued illness with fever chills riders and inability to eat. Patient was referred to the ED from [facility] yesterday afternoon May 13. At their she presented with diffuse low back pain fever and chills starting the night before as with associated nausea and dry heaves. She started running a fever yesterday morning. At the clinic she was found to have a urinary tract infection along with a fever elevated white blood count of 24,000 and hyponatremia at 123. Potassium was slightly elevated at 5.5. On arrival in the ED her temperature 100.1 degrees. She looked volume depleted. In the ED she had lab workup which included blood cultures 2. Subsequently to move those blood cultures out of 4 have grown out gram-negative rods at 16 and 17 hours respectively. No sensitivity report is yet available. She received 2 L of IV fluids while in the ED. She was given a gram of Rocephin intravenously as well. Lactic acid yesterday was 1.4 lipase 192 she has a history of pancreatitis. The count was found to be elevated at 24,000. Presumably a left shift. She refused to be admitted to the hospital she felt markedly improved after 2 L of IV fluids and fever management. She was scheduled come back to the hospital today for outpatient Rocephin IV which was arranged by Dr. Malave. She did apparently show up at 1300 hrs. today and received Rocephin 1 g intravenously. At that time she indicated she wasn't feeling all that well with continued fever although she had slept fairly well last night. She had been able to eat much. Immature this afternoon was 101.5. She returns to the ED tonight at the request of her and daughter as she is not getting better. She has probably voided only twice today. She is dry heaving and feeling nauseated. Temperature currently is well over 101. She is currently currently experiencing riders in the ED upon arrival. She now of course is willing to stay in the hospital. Of note the patient still has significant low back pain. No dysuria. She had one loose stool today. Onset: Sudden Onset Date: 05/12/19 (Fever spike yesterday morning.) Duration: Day(s):, Getting Worse Location: Reports: Generalized (Continued high fever chills riders nausea and inability eat. Clinically appears volume depleted.) Quality: Reports: Other (Generalized myalgia.) Severity: Severe Improves with: Reports: None Worsens with: Reports: None Context: Reports: Other (Known documented upper urinary tract infection with bacteremia and early sepsis.). Denies: Activity, Exercise, Lifting, Sick Contact, Trauma Associated Symptoms: Reports: Cough, Fever/Chills, Headaches, Loss of Appetite, Malaise (Nonproductive), Nausea/Vomiting, Weakness (Generalized). Denies: Confusion, Chest Pain, cough w sputum, Diaphoresis, Rash, Seizure (Nausea without vomiting), Shortness of Breath, Syncope Treatments ADMINISTRATIVE LIAISON: Reports: Acetaminophen Lower Back Pain Score (Numeric/FACES): 5 - Related Data Allergies Allergy/AdvReac Type Severity Reaction Status Date / Time No Known Allergies Allergy Verified 05/14/19 19:46 Home Meds: Home Meds Potassium Chloride 1 tab PO TID 09/02/18 [History] Mirtazapine [Remeron] 30 mg PO BEDTIME 30 Days #30 tablet 09/05/18 [Rx] Propranolol [Inderal LA] 60 mg PO DAILY #30 cap.er 09/05/18 [Rx] Saccharomyces Boulardii [Florastor] 250 mg PO BID 15 Days #30 cap 09/05/18 [Rx] Levothyroxine 25 mcg PO DAILY 05/14/19 [History] Past Medical History HEENT History: Reports: Impaired Vision Other HEENT History: wears corrective lenses Cardiovascular History: Reports: None Gastrointestinal History: Reports: GERD Genitourinary History: Reports: Urinary Incontinence, UTI, Recurrent 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: Reports: Musculoskeletal History: Reports: None Neurological History: Reports: None Psychiatric History: Reports: Anxiety, Depression, Eating Disorders Other Psychiatric History: Patient stated she was bullemic in high school into college Endocrine/Metabolic History: Reports: Vitamin D Deficiency Hematologic History: Reports: Polycythemia - Past Surgical History Female Surgical History: Reports: Tubal Ligation Social & Family History - Family History Neurological: Reports: Alzheimers Disease Oncologic: Reports: Other (See Below) Other Oncologic Family History: Brother had cancer started in spine and spread to bones - Caffeine Use Caffeine Use: Reports: None Caffeine Use Comment: drinks about 1-2 cups of coffee per day - Living Situation & Occupation Living situation: Reports: Occupation: Employed ED ROS GENERAL - Review of Systems Review Of Systems: See Below Constitutional: Reports: Fever, Chills, Malaise, Weakness, Fatigue, Decreased Appetite, Weight Loss HEENT: Reports: Glasses Respiratory: Reports: Cough (Nonproductive). Denies: Shortness of Breath, Wheezing, Pleuritic Chest Pain Cardiovascular: Reports: Blood Pressure Problem, Dyspnea on Exertion, Lightheadedness, Other. Denies: Chest Pain, Claudication, Edema, Orthopnea ( Blood pressure always runs fairly low.), Palpitations, PND, Syncope Endocrine: Reports: Fatigue (Generalized severe weakness.) GI/Abdominal: Reports: Diarrhea (1 diarrhea stool today without blood.), Decreased Appetite. Denies: Abdominal Pain : Reports: Other (His only voided twice so far today dark kamar urine.) Musculoskeletal: Reports: Back Pain (Generalized myalgia. Use low back ache.), Muscle Pain Skin: Reports: No Symptoms Neurological: Reports: Dizziness, Headache (And weakness with standing), Difficulty Walking, Weakness. Denies: Confusion, Numbness, Pre-Existing Deficit (Due to weakness), Seizure, Syncope, Tingling, Tremors, Trouble Speaking , Change in Speech, Gait Disturbance, Other Psychiatric: Reports: Anxiety. Denies: Agitation, Confusion, Cravings, Depression, Hallucinations, Homicidal Ideation, Mood Lability, Suicidal Ideation Hematologic/Lymphatic: Reports: No Symptoms Immunologic: Reports: No Symptoms ED EXAM, RENAL/ - Physical Exam Exam: See Below Exam Limited By: No Limitations General Appearance: Alert, WD/WN, Moderate Distress (Peers acutely ill. She is suffering rigors as we speak.), Other (Temperature is currently 39.1. Pulse 115 at the bedside respiratory rate of 22 with O2 sats of 99% on room air blood pressure is 90/68. Blood pressure yesterday when she attended the ED was 97/80.) Eye Exam: Bilateral Eye: Normal Inspection Ears: Normal TMs Throat/Mouth: Normal Oropharynx, Other (Tongue is moderately dry and coated.). No: Normal Lips (Other than being dry.) Head: Atraumatic ( Lips are mildly chapped.), Normocephalic Neck: Normal Inspection, Supple, Non-Tender, Full Range of Motion. No: Lymphadenopathy (L), Lymphadenopathy (R) Respiratory/Chest: Lungs Clear (Mild tachypnea at rest. 22-24/m.), No Accessory Muscle Use, Chest Non-Tender, Respiratory Distress Cardiovascular: Normal Peripheral Pulses, No Edema, No Gallop (Resting tachycardia at 1 15/m.), No Murmur, No Rub, Tachycardia GI/Abdominal: Normal Bowel Sounds, Soft, Non-Tender, No Organomegaly, No Abnormal Bruit, No Mass, Pelvis Stable. No: Guarding, Rigid, Rebound Back Exam: Normal Inspection, Full Range of Motion. No: CVA Tenderness (L), CVA Tenderness (R) Extremities: Normal Inspection, Normal Range of Motion, Non-Tender, No Pedal Edema, Increased Warmth Neurological: Alert, Oriented, CN II-XII Intact, Normal Cognition, No Motor/ Sensory Deficits Psychiatric: Normal Affect, Anxious. No: Normal Mood Skin Exam: Warm, Dry, Intact, Normal Color, No Rash EKG INTERPRETATION EKG Date: 05/14/19 Time: 20:36 Rhythm: Other Rate (Beats/Min): 110 [place]: Normal P-Wave: Present QRS: Other (Early R-wave transition V2. May be due to lead placement.) ST-T: Other (Mildly decreased voltage limb leads.) QT: Prolonged (Minimally prolonged) EKG Interpretation Comments: Borderline ECG Course - Vital Signs Last Recorded V/S: Last Vital Signs Temp 39.1 C H 05/14/19 19:41 Pulse 115 H 05/14/19 19:41 Resp 22 H 05/14/19 19:41 BP 90/68 05/14/19 19:41 Pulse Ox 99 05/14/19 19:41 - Orders/Labs/Meds Orders: Active Orders 24 hr Category Date Time Status EKG Documentation Completion [RC] STAT Care 05/14/19 19:55 Active URINALYSIS W/MICROSCOPIC [UA W/MICROSCOPIC] [URIN] Stat Lab 05/14/19 19:56 Ordered Dextrose 5%-0.9% NaCl [Dextrose 5%-Normal Saline] 1,000 Med 05/14/19 20:00 Active ml IV ASDIRECTED Potassium Chloride [KCl 10 MEQ in Water 100 ML] 10 meq Med 05/14/19 21:45 Active Premix Bag 1 bag IV ONETIME Medication Orders Dextrose/Sodium Chloride (Dextrose 5%-Normal Saline) 1,000 mls @ 999 mls/hr IV ASDIRECTED VIRGILIO Last Admin: 05/14/19 19:57 Dose: 999 mls/hr Potassium Chloride 10 meq/ (Premix) 100 mls @ 100 mls/hr IV ONETIME ONE Stop: 05/14/19 22:44 Last Admin: 05/14/19 21:43 Dose: 100 mls/hr Labs: Laboratory Tests 05/14/19 05/14/19 05/14/19 Range/Units 20:32 20:32 20:32 WBC 12.83 H (3.98-10.04) K/mm3 RBC 4.28 (3.98-5.22) M/mm3 Hgb 12.4 (11.2-15.7) gm/dl Hct 36.3 (34.1-44.9) % MCV 84.8 (79.4-94.8) fl MCH 29.0 (25.6-32.2) pg MCHC 34.2 (32.2-35.5) g/dl RDW Std Deviation 42.4 (36.4-46.3) fL Plt Count 193 (182-369) K/mm3 MPV 9.0 L (9.4-12.3) fl Neutrophils % (Manual) 87 H (40-60) % Band Neutrophils % 3 (0-10) % Lymphocytes % (Manual) 5 L (20-40) % Atypical Lymphs % 0 % Monocytes % (Manual) 3 (2-10) % Eosinophils % (Manual) 2 (0.7-5.8) % Basophils % (Manual) 0 L (0.1-1.2) Platelet Estimate Adequate Poikilocytosis 1+ slight [place] Cells 1+ slight RBC Morph Comment Not Reportable Sodium 128 L D (136-145) mEq/L Potassium 2.9 L D (3.5-5.1) mEq/L Chloride 97 L D (98-107) mEq/L Carbon Dioxide 18 L (21-32) mEq/L Anion Gap 15.9 H (5-15) BUN 26 H (7-18) mg/dL Creatinine 1.2 H (0.55-1.02) mg/dL Est Cr Clr Drug Dosing 38.42 mL/min Estimated GFR (MDRD) 46 (>60) mL/min BUN/Creatinine Ratio 21.7 H (14-18) Glucose 133 H (74-106) mg/dL Lactic Acid 2.5 H (0.4-2.0) mmol/L Calcium 8.1 L (8.5-10.1) mg/dL Magnesium 2.0 (1.8-2.4) mg/dl Total Bilirubin 0.2 (0.2-1.0) mg/dL AST 19 (15-37) U/L ALT 25 (14-59) U/L Alkaline Phosphatase 97 (46-116) U/L C-Reactive Protein (<1.0) mg/dL Total Protein 6.1 L (6.4-8.2) g/dl Albumin 2.1 L (3.4-5.0) g/dl Globulin 4.0 gm/dL Albumin/Globulin Ratio 0.5 L (1-2) Lipase 244 (73-393) U/L Ketones (0.0-0.3) mM 05/14/19 Range/Units 20:32 WBC (3.98-10.04) K/mm3 RBC (3.98-5.22) M/mm3 Hgb (11.2-15.7) gm/dl Hct (34.1-44.9) % MCV (79.4-94.8) fl MCH (25.6-32.2) pg MCHC (32.2-35.5) g/dl RDW Std Deviation (36.4-46.3) fL Plt Count (182-369) K/mm3 MPV (9.4-12.3) fl Neutrophils % (Manual) (40-60) % Band Neutrophils % (0-10) % Lymphocytes % (Manual) (20-40) % Atypical Lymphs % % Monocytes % (Manual) (2-10) % Eosinophils % (Manual) (0.7-5.8) % Basophils % (Manual) (0.1-1.2) Platelet Estimate Poikilocytosis [place] Cells RBC Morph Comment Sodium (136-145) mEq/L Potassium (3.5-5.1) mEq/L Chloride (98-107) mEq/L Carbon Dioxide (21-32) mEq/L Anion Gap (5-15) BUN (7-18) mg/dL Creatinine (0.55-1.02) mg/dL Est Cr Clr Drug Dosing mL/min Estimated GFR (MDRD) (>60) mL/min BUN/Creatinine Ratio (14-18) Glucose (74-106) mg/dL Lactic Acid (0.4-2.0) mmol/L Calcium (8.5-10.1) mg/dL Magnesium (1.8-2.4) mg/dl Total Bilirubin (0.2-1.0) mg/dL AST (15-37) U/L ALT (14-59) U/L Alkaline Phosphatase (46-116) U/L C-Reactive Protein (<1.0) mg/dL Total Protein (6.4-8.2) g/dl Albumin (3.4-5.0) g/dl Globulin gm/dL Albumin/Globulin Ratio (1-2) Lipase (73-393) U/L Ketones 0.17 (0.0-0.3) mM Meds: Medications Generic Name Dose Route Start Last Admin Trade Name Freq PRN Reason Stop Dose Admin Dextrose/Sodium Chloride 1,000 mls @ 999 mls/hr 05/14/19 20:00 05/14/19 19:57 Dextrose 5%-Normal Saline IV 999 mls/hr ASDIRECTED VIRGILIO Administration Potassium Chloride 10 meq/ 100 mls @ 100 mls/hr 05/14/19 21:45 05/14/19 21:43 Premix IV 05/14/19 22:44 100 mls/hr ONETIME ONE Administration Discontinued Medications Generic Name Dose Route Start Last Admin Trade Name Freq PRN Reason Stop Dose Admin Ceftriaxone Sodium 1 gm/ 100 mls @ 200 mls/hr 05/14/19 19:53 05/14/19 20:00 Sodium Chloride IV 05/14/19 20:22 200 mls/hr ONETIME ONE Administration Piperacillin Sod/Tazobactam 100 mls @ 200 mls/hr 05/14/19 20:23 05/14/19 20: 45 Sod 4.5 gm/ Sodium Chloride IV 05/14/19 20:52 200 mls/hr ONETIME ONE Administration Ibuprofen 600 mg 05/14/19 19:54 05/14/19 20:00 Motrin PO 10/10/19 19:55 600 mg ONETIME ONE Administration Ondansetron HCl 4 mg 05/14/19 19:52 05/14/19 20:00 Zofran IVPUSH 05/14/19 19:53 4 mg ONETIME ONE Administration - Radiology Interpretation Free Text/Narrative:: 59-year-old female attends the ED with known urinary tract infection diagnosed yesterday in the [facility]. She had a documented elevated white count of 24,000 with presumed left shift. When she attended the ED at their request for admission to hospital she had workup carried out. This included blood cultures 2 which have now grown out gram-negative rods in 2 of the 4 cultures. Patient received 2 L of IV fluids medications for fever relief and first dose of Rocephin 1 g IV yesterday and decided to go home versus staying in the hospital. Dr. Malave had set up for her to come into the hospital today for infusion of Rocephin 1 g IV which she did at 1300 hrs. Temperature was 101.5 at that time. Since going home she is continued to have high fevers intermittent chills and rigors. And inability to eat. She reports only voiding twice a day of dark kamar urine. She's had one loose diarrhea stool. Feels generally weak and sick. Temperature here is 39.1 or 103 blood pressure is 90/70. She tends to have a low blood pressure. Plan IV will be D5 normal saline at open. Given Motrin 600 mg orally for fever and body ache relief. Will repeat Rocephin 1 g IV. Repeat labs ordered including blood cultures. Urinalysis if she happens to provide a urine. - Re-Assessments/Exams Free Text/Narrative Re-Assessment/Exam: 05/14/19 21:26 White count is come back elevated at 12.83 with 87% neutrophils and 3% band cells reported. Hemoglobin is 12.4 with hematocrit of 36.3. Platelet count 193,000. Ketones 0.17 . 05/14/19 21:33 Chemistry shows sodium is low at 128 but improved from 123 yesterday. Potassium is low at 2.9. Chloride 97 with a bicarbonate of 18. Anion gap is 15.9. BUNs 26 with a creatinine of 1.2. Glucose is 133 with a lactic acid elevated at 2.5. Calcium is 8.1. Magnesium is 2.0. Liver function is normal. C-reactive protein is pending. He was previously 22.1. Total protein is 6.1 with an albumin fraction low at 2.1. Lipase 244. 05/14/19 21:57 Her blood pressure is fallen to 67/43 with a mean arterial pressure of 52. Heart rate is 87 sats are 94%. She remains very warm to palpation. She is alert and oriented does speak back. Her to hang another liter of D5 LR at open. Blood pressure does not improve she will require low-dose vasopressor. This means that she should be admitted to the intensive care unit and I will convey this to Dr. Lazaro-- flight operations inspector hospitalist. 05/14/19 22:[address] Lazaro and he is okay with the patient being admitted to the intensive care unit. Was advised of her low blood pressure and we will infuse a another liter of IV fluids before considering vasopressor. Departure - Departure Time of Disposition: 22:10 Disposition: Admitted As Inpatient 67 Condition: Serious Clinical Impression: Upper urinary tract infection, Septicemia - Discharge Information *PRESCRIPTION DRUG MONITORING PROGRAM REVIEWED*: Not Applicable *COPY OF PRESCRIPTION DRUG MONITORING REPORT IN PATIENT DAVID: Not Applicable Instructions: Urinary Tract Infection, Adult, [id number] Referrals: Shelli Laws NP [Primary Care Provider] - Forms: ED Department Discharge - My Orders Last 24 Hours: My Active Orders 05/14/19 19:55 EKG Documentation Completion [RC] STAT 05/14/19 19:56 URINALYSIS W/MICROSCOPIC [UA W/MICROSCOPIC] [URIN] Stat 05/14/19 20:00 Dextrose 5%-0.9% NaCl [Dextrose 5%-Normal Saline] 1,000 ml IV ASDIRECTED 05/14/19 21:45 Potassium Chloride [KCl 10 MEQ in Water 100 ML] 10 meq Premix Bag 1 bag IV ONETIME - Assessment/Plan Last 24 Hours: My Active Orders 05/14/19 19:55 EKG Documentation Completion [RC] STAT 05/14/19 19:56 URINALYSIS W/MICROSCOPIC [UA W/MICROSCOPIC] [URIN] Stat 05/14/19 20:00 Dextrose 5%-0.9% NaCl [Dextrose 5%-Normal Saline] 1,000 ml IV ASDIRECTED 05/14/19 21:45 Potassium Chloride [KCl 10 MEQ in Water 100 ML] 10 meq Premix Bag 1 bag IV ONETIME
[2019-05-14] MEDS ORDERED: cefTRIAXone 1 GM in Sodium Chloride 0.9% 100 ML IV ONE (19:53)
[2019-05-14] MEDS ORDERED: Ibuprofen 600 MG Tab PO ONE (19:54)
[2019-05-14] MEDS ORDERED: Dextrose 5%-0.9% NaCl 1,000 ML IV SCH (20:00)
[2019-05-14] MEDS ORDERED: Piperacillin/Tazobactam 4.5 GM in Sodium Chloride 0.9% 100 ML IV ONE (20:23)
[2019-05-14] MEDS ORDERED: Potassium Chloride 10 MEQ in Premix Bag 1 BAG IV ONE (21:45)
[2019-05-14] MEDS ORDERED: Dextrose 5%-Lactated Ringers 1,000 ML IV SCH (22:15)
[2019-05-14] MEDS ORDERED: Ondansetron 4 MG/2 ML SDV IV PRN (22:41)
[2019-05-14] MEDS: Potassium Chloride 10 MEQ in Premix Bag 1 BAG IV SCH ×2 (22:53→23:53)
--- NOTE | 2019-05-14 23:08 | PCM.HP.2 ---
H&P History of Present Illness - General Date of Service: 05/14/19 Admit Problem/Dx: Admission Diagnosis/Problem Admission Diagnosis/Problem Septicemia due to Gram negative organism - History of Present Illness Initial Comments - Free Text/Narative: 59-year-old female returned to the emergency room today secondary to fever, chills, and rigors. Patient was sent yesterday from the clinic secondary to fever of 100.1, hyponatremia at 123, WBC 24,004 end depletion. Patient was given IV fluids, Rocephin, and blood cultures. Lactic acid was negative at 1.4 and a lipase was 192. It was recommended the patient stay for further evaluation and treatment, the patient elected to go home. Blood cultures did grow out gram-positive rods and she returned at noon for 1 g IV Rocephin. She returns to the emergency room a few hours later secondary to fever and chills. When patient returned her white count did decrease to 12.8, sodium increased to 128, and potassium decreased to 2.9. Renal function was steady at 26 BUN and creatinine of 1.2. Minimal anion gap of 15.9. Unfortunately, blood pressure dropped to 67/43 with a mean arterial pressure of 52. 2 L of D5 LR were bolused and she was transferred to the intensive care unit. She was given another gram of Rocephin and started on Zosyn. Patient states that starting on Saturday, 2 days ago she had decreasing appetite with low back pain. She had low back pain for one week. On Saturday also she had decreased by mouth intake and she had decreased urinary output. She has had decreased difficulty eating after getting a tooth extraction back in January. Her dentures make her gag. Back pain currently as 5 out of 10 and is a dull ache, improved with heating pads and worse with movement. She has been seeing a dietitian because of her anorexia. She has gained 20 pounds since August of this year when she was hospitalized for urosepsis. she states that she is on propranolol for some kind of irregular heartbeat, potassium supplementation, Remeron, and levothyroxine. Lower Back Pain Score (Numeric/FACES): 5 - Related Data Allergies/Adverse Reactions: Allergies Allergy/AdvReac Type Severity Reaction Status Date / Time No Known Allergies Allergy Verified 05/15/19 01:49 Home Medications: Home Meds Potassium Chloride 1 tab PO TID 09/02/18 [History] Mirtazapine [Remeron] 30 mg PO BEDTIME 30 Days #30 tablet 09/05/18 [Rx] Propranolol [Inderal LA] 60 mg PO DAILY #30 cap.er 09/05/18 [Rx] Saccharomyces Boulardii [Florastor] 250 mg PO BID 15 Days #30 cap 09/05/18 [Rx] Levothyroxine 25 mcg PO DAILY 05/14/19 [History] Docusate Calcium [Surfak] 2 tab PO DAILY 05/15/19 [History] Past Medical History HEENT History: Reports: Impaired Vision Other HEENT History: wears corrective lenses Cardiovascular History: Reports: None Other Cardiovascular History: tachycardia Gastrointestinal History: Reports: GERD Genitourinary History: Reports: Urinary Incontinence, UTI, Recurrent 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: Reports: Musculoskeletal History: Reports: None Neurological History: Reports: None Psychiatric History: Reports: Anxiety, Depression, Eating Disorders Other Psychiatric History: Patient stated she was bullemic in high school into college Endocrine/Metabolic History: Reports: Vitamin D Deficiency Hematologic History: Reports: Polycythemia - Past Surgical History Female Surgical History: Reports: Tubal Ligation Social & Family History - Family History Neurological: Reports: Alzheimers Disease Endocrine/Metabolic: Reports: Hypothyroidism Oncologic: Reports: Other (See Below) Other Oncologic Family History: Brother had cancer started in spine and spread to bones - Tobacco Use Smoking Status *Q: Never Smoker Second Hand Smoke Exposure: No - Caffeine Use Caffeine Use: Reports: None Caffeine Use Comment: drinks about 1-2 cups of coffee per day - Recreational Drug Use Recreational Drug Use: No - Living Situation & Occupation Living situation: Reports: Occupation: Employed H&P Review of Systems - Review of Systems: Review Of Systems: ROS reveals no pertinent complaints other than HPI. Exam - Exam Exam: See Below - Vital Signs Vital Signs: Last Vital Signs Temp 97.5 F 05/14/19 22:07 Pulse 115 H 05/14/19 19:41 Resp 22 H 05/14/19 19:41 BP 90/68 05/14/19 19:41 Pulse Ox 99 05/14/19 19:41 Weight: 105 lb - Exam Quality Assessment: No: Supplemental Oxygen General: Alert, Oriented, Other (cachectic) HEENT: Conjunctiva Clear, Mucosa Moist & [place] Neck: Supple, Trachea Midline, 2 Lungs: Clear to Auscultation, Normal Respiratory Effort Cardiovascular: Regular Rate, Regular Rhythm GI/Abdominal Exam: Normal Bowel Sounds, Soft, Non-Tender, No Organomegaly, No Distention, No Abnormal Bruit, No Mass Extremities: Normal Inspection, Normal Range of Motion, Non-Tender, No Pedal Edema, Normal Capillary Refill Skin: Warm Neurological: Cranial Nerves Intact Neuro Extensive - Mental Status: Alert, Oriented x3, Normal Mood/Affect, Normal Cognition Psychiatric: Alert, Normal Affect, Normal Mood - Patient Data Lab Results Last 24 hrs: Laboratory Results - last 24 hr 05/14/19 05/14/19 05/14/19 Range/Units 20:32 20:32 20:32 WBC 12.83 H (3.98-10.04) K/mm3 RBC 4.28 (3.98-5.22) M/mm3 Hgb 12.4 (11.2-15.7) gm/dl Hct 36.3 (34.1-44.9) % MCV 84.8 (79.4-94.8) fl MCH 29.0 (25.6-32.2) pg MCHC 34.2 (32.2-35.5) g/dl RDW Std Deviation 42.4 (36.4-46.3) fL Plt Count 193 (182-369) K/mm3 MPV 9.0 L (9.4-12.3) fl Neutrophils % (Manual) 87 H (40-60) % Band Neutrophils % 3 (0-10) % Lymphocytes % (Manual) 5 L (20-40) % Atypical Lymphs % 0 % Monocytes % (Manual) 3 (2-10) % Eosinophils % (Manual) 2 (0.7-5.8) % Basophils % (Manual) 0 L (0.1-1.2) Platelet Estimate Adequate Poikilocytosis 1+ slight Heidi Cells 1+ slight RBC Morph Comment Not Reportable Sodium 128 L D (136-145) mEq/L Potassium 2.9 L D (3.5-5.1) mEq/L Chloride 97 L D (98-107) mEq/L Carbon Dioxide 18 L (21-32) mEq/L Anion Gap 15.9 H (5-15) BUN 26 H (7-18) mg/dL Creatinine 1.2 H (0.55-1.02) mg/dL Est Cr Clr Drug Dosing 38.42 mL/min Estimated GFR (MDRD) 46 (>60) mL/min BUN/Creatinine Ratio 21.7 H (14-18) Glucose 133 H (74-106) mg/dL Lactic Acid 2.5 H (0.4-2.0) mmol/L Calcium 8.1 L (8.5-10.1) mg/dL Magnesium 2.0 (1.8-2.4) mg/dl Total Bilirubin 0.2 (0.2-1.0) mg/dL AST 19 (15-37) U/L ALT 25 (14-59) U/L Alkaline Phosphatase 97 (46-116) U/L C-Reactive Protein (<1.0) mg/dL Total Protein 6.1 L (6.4-8.2) g/dl Albumin 2.1 L (3.4-5.0) g/dl Globulin 4.0 gm/dL Albumin/Globulin Ratio 0.5 L (1-2) Lipase 244 (73-393) U/L Ketones (0.0-0.3) mM 05/14/19 Range/Units 20:32 WBC (3.98-10.04) K/mm3 RBC (3.98-5.22) M/mm3 Hgb (11.2-15.7) gm/dl Hct (34.1-44.9) % MCV (79.4-94.8) fl MCH (25.6-32.2) pg MCHC (32.2-35.5) g/dl RDW Std Deviation (36.4-46.3) fL Plt Count (182-369) K/mm3 MPV (9.4-12.3) fl Neutrophils % (Manual) (40-60) % Band Neutrophils % (0-10) % Lymphocytes % (Manual) (20-40) % Atypical Lymphs % % Monocytes % (Manual) (2-10) % Eosinophils % (Manual) (0.7-5.8) % Basophils % (Manual) (0.1-1.2) Platelet Estimate Poikilocytosis Heidi Cells RBC Morph Comment Sodium (136-145) mEq/L Potassium (3.5-5.1) mEq/L Chloride (98-107) mEq/L Carbon Dioxide (21-32) mEq/L Anion Gap (5-15) BUN (7-18) mg/dL Creatinine (0.55-1.02) mg/dL Est Cr Clr Drug Dosing mL/min Estimated GFR (MDRD) (>60) mL/min BUN/Creatinine Ratio (14-18) Glucose (74-106) mg/dL Lactic Acid (0.4-2.0) mmol/L Calcium (8.5-10.1) mg/dL Magnesium (1.8-2.4) mg/dl Total Bilirubin (0.2-1.0) mg/dL AST (15-37) U/L ALT (14-59) U/L Alkaline Phosphatase (46-116) U/L C-Reactive Protein (<1.0) mg/dL Total Protein (6.4-8.2) g/dl Albumin (3.4-5.0) g/dl Globulin gm/dL Albumin/Globulin Ratio (1-2) Lipase (73-393) U/L Ketones 0.17 (0.0-0.3) mM Result Diagrams: 05/15/19 04:49 05/15/19 04:49 Problem List Initiated/Reviewed/Updated: Yes Orders Last 24hrs: Active Orders 24 hr Category Date Time Status Admission Status [Patient Status] [ADT] Routine ADT 05/14/19 22:06 Active EKG Documentation Completion [RC] STAT Care 05/14/19 19:55 Active Oxygen Therapy [RC] PRN Care 05/14/19 22:41 Ordered Up ad Renetta [RC] ASDIRECTED Care 05/14/19 22:41 Ordered VTE/DVT Education [RC] PER UNIT ROUTINE Care 05/14/19 22:41 Ordered Vital Signs [RC] Q4H Care 05/14/19 22:41 Ordered Consult to Boomswing Operator [CONS] Routine Cons 05/14/19 22:45 Ordered Regular Diet [DIET] Diet 05/15/19 Breakfast Ordered C-REACTIVE PROTEIN [CHEM] AM Lab 05/15/19 05:11 Ordered C-REACTIVE PROTEIN [CHEM] AM Lab 05/16/19 05:11 Ordered C-REACTIVE PROTEIN [CHEM] AM Lab 05/17/19 05:11 Ordered C-REACTIVE PROTEIN [CHEM] AM Lab 05/18/19 05:11 Ordered C-REACTIVE PROTEIN [CHEM] AM Lab 05/19/19 05:11 Ordered CBC WITH AUTO DIFF [HEME] AM Lab 05/15/19 05:11 Ordered CBC WITH AUTO DIFF [HEME] AM Lab 05/16/19 05:11 Ordered CBC WITH AUTO DIFF [HEME] AM Lab 05/17/19 05:11 Ordered CBC WITH AUTO DIFF [HEME] AM Lab 05/18/19 05:11 Ordered CBC WITH AUTO DIFF [HEME] AM Lab 05/19/19 05:11 Ordered COMPREHENSIVE METABOLIC PN,CMP [CHEM] AM Lab 05/15/19 05:11 Ordered COMPREHENSIVE METABOLIC PN,CMP [CHEM] AM Lab 05/16/19 05:11 Ordered COMPREHENSIVE METABOLIC PN,CMP [CHEM] AM Lab 05/17/19 05:11 Ordered COMPREHENSIVE METABOLIC PN,CMP [CHEM] AM Lab 05/18/19 05:11 Ordered COMPREHENSIVE METABOLIC PN,CMP [CHEM] AM Lab 05/19/19 05:11 Ordered LACTATE SEPSIS W/ REFLEX [CHEM] Routine Lab 05/14/19 22:09 Ordered MAGNESIUM [CHEM] AM Lab 05/15/19 05:11 Ordered MAGNESIUM [CHEM] AM Lab 05/16/19 05:11 Ordered MAGNESIUM [CHEM] AM Lab 05/17/19 05:11 Ordered MAGNESIUM [CHEM] AM Lab 05/18/19 05:11 Ordered MAGNESIUM [CHEM] AM Lab 05/19/19 05:11 Ordered URINALYSIS W/MICROSCOPIC [UA W/MICROSCOPIC] [URIN] Stat Lab 05/14/19 19:56 Ordered Acetaminophen [Tylenol] Med 05/14/19 22:41 Ordered 650 mg PO Q4H PRN Dextrose 5%-Normal Saline @ 125 MLS/HR(1000ml) Med 05/14/19 23:00 Ordered Dextrose 5%-0.9% NaCl [Dextrose 5%-Normal Saline] 1,000 ml IV ASDIRECTED Enoxaparin [Lovenox] Med 05/15/19 09:00 Ordered 40 mg SUBCUT DAILY Levothyroxine Med 05/15/19 09:00 Ordered 25 mcg PO DAILY Mirtazapine [Remeron] Med 05/15/19 21:00 Ordered 30 mg PO BEDTIME Ondansetron [Zofran] Med 05/14/19 22:41 Ordered 4 mg IV Q4H PRN Piperacillin/Tazobactam [Piperacil-Tazobact] 4.5 gm Med 05/14/19 22:45 Ordered Sodium Chloride 0.9% [Normal Saline] 100 ml IV Q8H Potassium Chloride [KCl 10 MEQ in Water 100 ML] 10 meq Med 05/14/19 22:45 Ordered Premix Bag 1 bag IV Q1H Propranolol [Inderal LA] Med 05/15/19 09:00 Ordered 60 mg PO DAILY Saccharomyces Boulardii [Florastor] Med 05/15/19 09:00 Ordered 250 mg PO BID Resuscitation Status Routine Resus Stat 05/14/19 22:41 Ordered Medication Orders Acetaminophen (Tylenol) 650 mg PO Q4H PRN PRN Reason: Pain (Mild 1-3)/fever Enoxaparin Sodium (Lovenox) 40 mg SUBCUT DAILY [facility] Potassium Chloride 10 meq/ (Premix) 100 mls @ 100 mls/hr IV Q1H VIRGILIO Stop: 05/15/19 02:59 Last Admin: 05/14/19 22:53 Dose: 100 mls/hr Piperacillin Sod/Tazobactam (Sod 4.5 gm/ Sodium Chloride) 100 mls @ 25 mls/hr IV Q8H VIRGILIO Dextrose/Sodium Chloride (Dextrose 5%-Normal Saline) 1,000 mls @ 125 mls/hr IV ASDIRECTED [facility] Levothyroxine Sodium (Levothyroxine) 25 mcg PO DAILY@0600 [facility] Mirtazapine (Remeron) 30 mg PO BEDTIME [facility] Ondansetron HCl (Zofran) 4 mg IV Q4H PRN PRN Reason: Nausea/Vomiting Propranolol HCl (Inderal La) 60 mg PO DAILY VIRGILIO Saccharomyces Boulardii (Florastor) 250 mg PO BID [facility] Assessment/Plan Comment:: Neurologic * GCS 15 * No confusion Cardiovascular * Hypovolemic * Hypotension: acute on chronic. She has a history of borderline hypotension with SBP ranging from upper 80s to 110s. * History of arrhythmia of unknown type on propranolol * Reassessment of fluid status after IV fluid bolus demonstrates continued poor perfusion and hypotension requiring IV pressors * Continue IV rehydration * norepinephrine drip to titrate to MAP 65 or greater * Strict I/Os * Echocardiogram 2/2 bacteriemia Pulmonology * Normal RR with no increased respiratory effort * lungs clear * on room air with SpO2 mid 90s Gastrointestinal/nutrition * Anorexia/bulimia * Moderate protein calorie malnutrition * decreased PO intake * Lower abdominal pain with minimal tenderness * Last BM 1 day go * Diet as tolerated * Dietary consult Renal/electrolytes * Metabolic acidosis * Acute renal injury * AG 15.9 * Hyponatremia: Na 128 * Hypokalemia: K 2.9 * BUN 26; Scr 1.2 * Follow UOP and I/Os * Replete K * Daily CMP * D5 NS at 125 ml/hr Infectious disease * Severe sepsis * Complicated UTI * T. Max 102.9 * WBC 12.8 * CRP 22.1 * Blood cultures 2/4 positive Gm neg rods * UA: WBC 10-20; Moderate bacteria: Consistent with UTI, complicated by sepsis. * Continue Rocephin and Zosyn until sensitivities. Hem/Onc * Hb 12.4 * Plts. 193 * VTE prophylaxis: enoxaparin CODE STATUS: Full code - Mortality Measure Prognosis:: Poor
[2019-05-14] MEDS: Dextrose 5%-0.9% NaCl 1,000 ML IV SCH (23:15)
[2019-05-15] MEDS ORDERED: Norepinephrine 4 MG in Dextrose 5% in Water 246 ML IV SCH ×2 (00:15)
[2019-05-15] MEDS: Potassium Chloride 10 MEQ in Premix Bag 1 BAG IV SCH ×6 (00:53→22:50)
[2019-05-15] MEDS: Piperacillin/Tazobactam 4.5 GM in Sodium Chloride 0.9% 100 ML IV SCH ×2 (04:54→13:54)
[2019-05-15] MEDS: Levothyroxine 25 MCG Tab PO SCH (05:48)
[2019-05-15] MEDS: Dextrose 5%-0.9% NaCl 1,000 ML IV SCH ×2 (07:00→20:54)
[2019-05-15] MEDS ORDERED: Propranolol 60 MG Cap.ER PO SCH (09:00)
[2019-05-15] MEDS ORDERED: Enoxaparin 40 MG/0.4 ML Syringe SUBCUT SCH (09:00)
[2019-05-15] MEDS: Saccharomyces Boulardii (Probiotic) 250 MG Cap PO SCH ×2 (09:17→20:36)
--- NOTE | 2019-05-15 10:26 | CR ---
Chest: Portable view of the chest was obtained. Comparison: Prior chest x-ray of 09/01/18. Small bilateral pleural effusions are noted. Central lung markings are increased raising the possibility of pulmonary vascular congestion. Slight atelectasis versus small area of pneumonia is seen within the left base. Bony structures are grossly intact. Heart does not appear enlarged. Upper mediastinum is normal. Impression: 1. Small bilateral pleural effusions and left basilar atelectasis or small area of pneumonia. 2. Pulmonary vessels appear slightly congested. Please rule out any acute cardiac disease as an etiology. Findings could also represent fluid overload. 3. No additional abnormality is noted. Diagnostic code #3
[2019-05-15] MEDS: Multivitamins,Therapeutic Tab PO SCH (12:33)
--- NOTE | 2019-05-15 16:09 | PCM.PN ---
- General Info Date of Service: 05/15/19 Admission Dx/Problem (Free Text): Admission Diagnosis/Problem Admission Diagnosis/Problem Septicemia due to Gram negative organism Subjective Update: Molly continues to complain of some lower abdominal pain. We received records from her primary care provider and she does have borderline low blood pressure usually in the low 90s systolic. Also, culture results for her urinary tract infection resulted as Escherichia coli pansensitive. She has been afebrile since last night. she does complain of some dyspnea. This has worsened over the last month, but is worse and she's been sick. patient is also complaining of some chest pain, but does not know if his reading for her abdomen or not. She has been weaned off of norepinephrine and blood pressures are stable with a mean arterial pressure above 65. - Review of Systems General: Reports: Weakness, Fatigue. Denies: Fever HEENT: Reports: No Symptoms Pulmonary: Reports: Shortness of Breath Cardiovascular: Reports: Chest Pain Gastrointestinal: Reports: Abdominal Pain Genitourinary: Denies: Dysuria Neurological: Reports: No Symptoms Psychiatric: Reports: No Symptoms - Patient Data Vitals - Most Recent: Last Vital Signs Temp 98.2 F 05/15/19 12:00 Pulse 106 H 05/15/19 06:49 Resp 26 H 05/15/19 15:00 BP 106/61 05/15/19 15:00 Pulse Ox 96 05/15/19 15:00 Weight - Most Recent: 105 lb I&O - Last 24 Hours: Intake & Output 05/15/19 05/15/19 05/15/19 06:59 14:59 22:59 Intake Total 1249 510 7374 Output Total 700 Balance 2585 288 4690 Lab Results Last 24 Hours: Laboratory Results - last 24 hr 05/14/19 05/14/19 05/14/19 Range/Units 20:32 20:32 20:32 WBC 12.83 H (3.98-10.04) K/mm3 RBC 4.28 (3.98-5.22) M/mm3 Hgb 12.4 (11.2-15.7) gm/dl Hct 36.3 (34.1-44.9) % MCV 84.8 (79.4-94.8) fl MCH 29.0 (25.6-32.2) pg MCHC 34.2 (32.2-35.5) g/dl RDW Std Deviation 42.4 (36.4-46.3) fL Plt Count 193 (182-369) K/mm3 MPV 9.0 L (9.4-12.3) fl Neut % (Auto) (34.0-71.1) % Lymph % (Auto) (19.3-51.7) % [place] % (Auto) (4.7-12.5) % Eos % (Auto) (0.7-5.8) Baso % (Auto) (0.1-1.2) % Neut # (Auto) (1.56-6.13) K/mm3 Lymph # (Auto) (1.18-3.74) K/mm3 [place] # (Auto) (0.24-0.36) K/mm3 Eos # (Auto) (0.04-0.36) K/mm3 Baso # (Auto) (0.01-0.08) K/mm3 Neutrophils % (Manual) 87 H (40-60) % Band Neutrophils % 3 (0-10) % Lymphocytes % (Manual) 5 L (20-40) % Atypical Lymphs % 0 % Monocytes % (Manual) 3 (2-10) % Eosinophils % (Manual) 2 (0.7-5.8) % Basophils % (Manual) 0 L (0.1-1.2) Manual Slide Review Platelet Estimate Adequate Poikilocytosis 1+ slight [place] Cells 1+ slight RBC Morph Comment Not Reportable Sodium 128 L D (136-145) mEq/L Potassium 2.9 L D (3.5-5.1) mEq/L Chloride 97 L D (98-107) mEq/L Carbon Dioxide 18 L (21-32) mEq/L Anion Gap 15.9 H (5-15) BUN 26 H (7-18) mg/dL Creatinine 1.2 H (0.55-1.02) mg/dL Est Cr Clr Drug Dosing 38.42 mL/min Estimated GFR (MDRD) 46 (>60) mL/min BUN/Creatinine Ratio 21.7 H (14-18) Glucose 133 H (74-106) mg/dL Lactic Acid 2.5 H (0.4-2.0) mmol/L Calcium 8.1 L (8.5-10.1) mg/dL Magnesium 2.0 (1.8-2.4) mg/dl Total Bilirubin 0.2 (0.2-1.0) mg/dL AST 19 (15-37) U/L ALT 25 (14-59) U/L Alkaline Phosphatase 97 (46-116) U/L C-Reactive Protein 22.1 H* (<1.0) mg/dL Total Protein 6.1 L (6.4-8.2) g/dl Albumin 2.1 L (3.4-5.0) g/dl Globulin 4.0 gm/dL Albumin/Globulin Ratio 0.5 L (1-2) Lipase 244 (73-393) U/L TSH 3rd Generation (0.358-3.74) uIU/mL Urine Color (Yellow) Urine Appearance (Clear) Urine pH (5.0-8.0) Ur Specific [place] (1.005-1.030) Urine Protein (Negative) Urine Glucose (UA) (Negative) Urine Ketones (Negative) Urine Occult Blood (Negative) Urine Nitrite (Negative) Urine Bilirubin (Negative) Urine Urobilinogen (0.2-1.0) Ur Leukocyte Esterase (Negative) Urine RBC (0-5) /hpf Urine WBC (0-5) /hpf Urine WBC Clumps (NOT SEEN) /hpf Ur Squamous Epith Cells (0-5) /hpf Amorphous Sediment (NOT SEEN) /hpf Urine Bacteria (FEW) /hpf Urine Mucus (FEW) /hpf Ketones (0.0-0.3) mM 05/14/19 05/15/19 05/15/19 Range/Units 20:32 00:02 00:40 WBC (3.98-10.04) K/mm3 RBC (3.98-5.22) M/mm3 Hgb (11.2-15.7) gm/dl Hct (34.1-44.9) % MCV (79.4-94.8) fl MCH (25.6-32.2) pg MCHC (32.2-35.5) g/dl RDW Std Deviation (36.4-46.3) fL Plt Count (182-369) K/mm3 MPV (9.4-12.3) fl Neut % (Auto) (34.0-71.1) % Lymph % (Auto) (19.3-51.7) % [place] % (Auto) (4.7-12.5) % Eos % (Auto) (0.7-5.8) Baso % (Auto) (0.1-1.2) % Neut # (Auto) (1.56-6.13) K/mm3 Lymph # (Auto) (1.18-3.74) K/mm3 [place] # (Auto) (0.24-0.36) K/mm3 Eos # (Auto) (0.04-0.36) K/mm3 Baso # (Auto) (0.01-0.08) K/mm3 Neutrophils % (Manual) (40-60) % Band Neutrophils % (0-10) % Lymphocytes % (Manual) (20-40) % Atypical Lymphs % % Monocytes % (Manual) (2-10) % Eosinophils % (Manual) (0.7-5.8) % Basophils % (Manual) (0.1-1.2) Manual Slide Review Platelet Estimate Poikilocytosis [place] Cells RBC Morph Comment Sodium (136-145) mEq/L Potassium (3.5-5.1) mEq/L Chloride (98-107) mEq/L Carbon Dioxide (21-32) mEq/L Anion Gap (5-15) BUN (7-18) mg/dL Creatinine (0.55-1.02) mg/dL Est Cr Clr Drug Dosing mL/min Estimated GFR (MDRD) (>60) mL/min BUN/Creatinine Ratio (14-18) Glucose (74-106) mg/dL Lactic Acid 1.5 (0.4-2.0) mmol/L Calcium (8.5-10.1) mg/dL Magnesium (1.8-2.4) mg/dl Total Bilirubin (0.2-1.0) mg/dL AST (15-37) U/L ALT (14-59) U/L Alkaline Phosphatase (46-116) U/L C-Reactive Protein (<1.0) mg/dL Total Protein (6.4-8.2) g/dl Albumin (3.4-5.0) g/dl Globulin gm/dL Albumin/Globulin Ratio (1-2) Lipase (73-393) U/L TSH 3rd Generation (0.358-3.74) uIU/mL Urine Color Light yellow (Yellow) Urine Appearance Clear (Clear) Urine pH 6.5 (5.0-8.0) Ur Specific [place] 1.015 (1.005-1.030) Urine Protein 2+ H (Negative) Urine Glucose (UA) Trace H (Negative) Urine Ketones Negative (Negative) Urine Occult Blood 1+ H (Negative) Urine Nitrite Negative (Negative) Urine Bilirubin Negative (Negative) Urine Urobilinogen 0.2 (0.2-1.0) Ur Leukocyte Esterase 1+ H (Negative) Urine RBC 5-10 H (0-5) /hpf Urine WBC 10-20 H (0-5) /hpf Urine WBC Clumps Rare (NOT SEEN) /hpf Ur Squamous Epith Cells 0-5 (0-5) /hpf Amorphous Sediment Few H (NOT SEEN) /hpf Urine Bacteria Moderate H (FEW) /hpf Urine Mucus Rare (FEW) /hpf Ketones 0.17 (0.0-0.3) mM 05/15/19 05/15/19 Range/Units 04:49 04:49 WBC 11.20 H (3.98-10.04) K/mm3 RBC 4.44 (3.98-5.22) M/mm3 Hgb 12.5 (11.2-15.7) gm/dl Hct 38.1 (34.1-44.9) % MCV 85.8 (79.4-94.8) fl MCH 28.2 (25.6-32.2) pg MCHC 32.8 (32.2-35.5) g/dl RDW Std Deviation 43.9 (36.4-46.3) fL Plt Count 200 (182-369) K/mm3 MPV 9.8 (9.4-12.3) fl Neut % (Auto) 82.7 H (34.0-71.1) % Lymph % (Auto) 7.1 L (19.3-51.7) % [place] % (Auto) 8.0 (4.7-12.5) % Eos % (Auto) 1.2 (0.7-5.8) Baso % (Auto) 0.2 (0.1-1.2) % Neut # (Auto) 9.27 H (1.56-6.13) K/mm3 Lymph # (Auto) 0.79 L (1.18-3.74) K/mm3 [place] # (Auto) 0.90 H (0.24-0.36) K/mm3 Eos # (Auto) 0.13 (0.04-0.36) K/mm3 Baso # (Auto) 0.02 (0.01-0.08) K/mm3 Neutrophils % (Manual) (40-60) % Band Neutrophils % (0-10) % Lymphocytes % (Manual) (20-40) % Atypical Lymphs % % Monocytes % (Manual) (2-10) % Eosinophils % (Manual) (0.7-5.8) % Basophils % (Manual) (0.1-1.2) Manual Slide Review Normal smear Platelet Estimate Poikilocytosis [place] Cells RBC Morph Comment Sodium 133 L (136-145) mEq/L Potassium 3.6 (3.5-5.1) mEq/L Chloride 103 (98-107) mEq/L Carbon Dioxide 16 L (21-32) mEq/L Anion Gap 17.6 H (5-15) BUN 19 H (7-18) mg/dL Creatinine 1.2 H (0.55-1.02) mg/dL Est Cr Clr Drug Dosing 38.06 mL/min Estimated GFR (MDRD) 46 (>60) mL/min BUN/Creatinine Ratio 15.8 (14-18) Glucose 121 H (74-106) mg/dL Lactic Acid (0.4-2.0) mmol/L Calcium 7.8 L (8.5-10.1) mg/dL Magnesium 2.0 (1.8-2.4) mg/dl Total Bilirubin 0.2 (0.2-1.0) mg/dL AST 19 (15-37) U/L ALT 21 (14-59) U/L Alkaline Phosphatase 96 (46-116) U/L C-Reactive Protein 29.4 H* (<1.0) mg/dL Total Protein 5.9 L (6.4-8.2) g/dl Albumin 2.0 L (3.4-5.0) g/dl Globulin 3.9 gm/dL Albumin/Globulin Ratio 0.5 L (1-2) Lipase (73-393) U/L TSH 3rd Generation 2.209 (0.358-3.74) uIU/mL Urine Color (Yellow) Urine Appearance (Clear) Urine pH (5.0-8.0) Ur Specific [place] (1.005-1.030) Urine Protein (Negative) Urine Glucose (UA) (Negative) Urine Ketones (Negative) Urine Occult Blood (Negative) Urine Nitrite (Negative) Urine Bilirubin (Negative) Urine Urobilinogen (0.2-1.0) Ur Leukocyte Esterase (Negative) Urine RBC (0-5) /hpf Urine WBC (0-5) /hpf Urine WBC Clumps (NOT SEEN) /hpf Ur Squamous Epith Cells (0-5) /hpf Amorphous Sediment (NOT SEEN) /hpf Urine Bacteria (FEW) /hpf Urine Mucus (FEW) /hpf Ketones (0.0-0.3) mM Med Orders - Current: Current Medications Acetaminophen (Tylenol) 650 mg PO Q4H PRN PRN Reason: Pain (Mild 1-3)/fever Docusate Calcium (Surfak) 480 mg PO DAILY [facility] Last Admin: 05/15/19 10:48 Dose: 480 mg Enoxaparin Sodium (Lovenox) 30 mg SUBCUT DAILY [facility] Piperacillin Sod/Tazobactam (Sod 4.5 gm/ Sodium Chloride) 100 mls @ 25 mls/hr IV Q8H [facility] Last Admin: 05/15/19 13:54 Dose: 25 mls/hr Dextrose/Sodium Chloride (Dextrose 5%-Normal Saline) 1,000 mls @ 125 mls/hr IV ASDIRECTED [facility] Last Infusion: 05/15/19 10:51 Dose: 50 mls/hr Norepinephrine Bitartrate 4 mg (/ Dextrose/Water) 250 mls @ 7.5 mls/hr IV TITRATE [facility]; Protocol Last Titration: 05/15/19 13:25 Dose: 1 mcg/min, 3.75 mls/hr Levothyroxine Sodium (Levothyroxine) 25 mcg PO DAILY@0600 [facility] Last Admin: 05/15/19 05:48 Dose: 25 mcg Mirtazapine (Remeron) 30 mg PO BEDTIME [facility] Multivitamins (Thera) 1 each PO DAILY [facility] Last Admin: 05/15/19 12:33 Dose: 1 each Ondansetron HCl (Zofran) 4 mg IV Q4H PRN PRN Reason: Nausea/Vomiting Propranolol HCl (Inderal La) 60 mg PO DAILY [facility] Last Admin: 05/15/19 09:17 Dose: 60 mg Saccharomyces Boulardii (Florastor) 250 mg PO BID [facility] Last Admin: 05/15/19 09:17 Dose: 250 mg Discontinued Medications Enoxaparin Sodium (Lovenox) 40 mg SUBCUT DAILY [facility] Last Admin: 05/15/19 09:17 Dose: 40 mg Dextrose/Sodium Chloride (Dextrose 5%-Normal Saline) 1,000 mls @ 999 mls/hr IV ASDIRECTED [facility] Last Admin: 05/14/19 19:57 Dose: 999 mls/hr Ceftriaxone Sodium 1 gm/ (Sodium Chloride) 100 mls @ 200 mls/hr IV ONETIME ONE Stop: 05/14/19 20:22 Last Admin: 05/14/19 20:00 Dose: 200 mls/hr Piperacillin Sod/Tazobactam (Sod 4.5 gm/ Sodium Chloride) 100 mls @ 200 mls/hr IV ONETIME ONE Stop: 05/14/19 20:52 Last Admin: 05/14/19 20:45 Dose: 200 mls/hr Potassium Chloride 10 meq/ (Premix) 100 mls @ 100 mls/hr IV ONETIME ONE Stop: 05/14/19 22:44 Last Admin: 05/14/19 21:43 Dose: 100 mls/hr Dextrose/Lactated Ringer's (Dextrose 5%-Lactated Ringers) 1,000 mls @ 999 mls/ hr IV ASDIRECTED [facility] Last Admin: 05/14/19 22:11 Dose: 999 mls/hr Potassium Chloride 10 meq/ (Premix) 100 mls @ 100 mls/hr IV Q1H [facility] Stop: 05/15/19 02:59 Last Admin: 05/15/19 01:53 Dose: 100 mls/hr Ibuprofen (Motrin) 600 mg PO ONETIME ONE Stop: 05/14/19 19:55 Last Admin: 05/14/19 20:00 Dose: 600 mg Ondansetron HCl (Zofran) 4 mg IVPUSH ONETIME ONE Stop: 05/14/19 19:53 Last Admin: 05/14/19 20:00 Dose: 4 mg - Exam Quality Assessment: No: Supplemental Oxygen General: Alert, Oriented HEENT: Pupils Equal, Pupils Reactive, EOMI, Mucous Membr. Moist/[place] Neck: Supple Lungs: Crackles (bibasilar). No: Normal Respiratory Effort (slightly increased respiratory effort) Cardiovascular: Regular Rate, Regular Rhythm GI/Abdominal Exam: Normal Bowel Sounds, Soft, No Distention, Tender (left lower quadrant tenderness without guarding or rebound. Suprapubic tenderness without guarding or rebound.). No: Guarding, Rigid, Rebound Extremities: Normal Inspection, Non-Tender, No Pedal Edema, Normal Capillary Refill Peripheral Pulses: 1+: Posterior Tibial (L), Posterior Tibial (R), Dorsalis Pedis (L), Dorsalis Pedis (R) Skin: Warm, Dry, Intact Neurological: No New Focal Deficit Psy/Mental Status: Alert, Normal Affect, Normal Mood - Problem List Review Problem List Initiated/Reviewed/Updated: Yes - My Orders Last 24 Hours: My Active Orders 05/14/19 22:41 Oxygen Therapy [RC] PRN Up ad Renetta [RC] ASDIRECTED VTE/DVT Education [RC] PER UNIT ROUTINE Vital Signs [RC] Q1HR Acetaminophen [Tylenol] 650 mg PO Q4H PRN Ondansetron [Zofran] 4 mg IV Q4H PRN Resuscitation Status Routine 05/14/19 22:45 Consult to Utility System Repairer [CONS] Routine 05/14/19 23:00 Dextrose 5%-0.9% NaCl [Dextrose 5%-Normal Saline] 1,000 ml IV ASDIRECTED 05/15/19 00:15 Norepinephrine [Levophed] 4 mg Dextrose 5% in Water 246 ml IV TITRATE 05/15/19 05:00 Piperacillin/Tazobactam [Piperacil-Tazobact] 4.5 gm Sodium Chloride 0.9% [ Normal Saline] 100 ml IV Q8H 05/15/19 06:00 Levothyroxine 25 mcg PO DAILY@0600 05/15/19 09:00 Propranolol [Inderal LA] 60 mg PO DAILY Saccharomyces Boulardii [Florastor] 250 mg PO BID 05/15/19 09:30 Docusate Calcium [Surfak] 480 mg PO DAILY 05/15/19 10:30 CULTURE URINE [RM] Routine 05/15/19 11:00 Multivitamins,Therapeutic [Thera] 1 each PO DAILY 05/15/19 15:16 PT Evaluation and Treatment [CONS] Routine 05/15/19 15:17 OT Evaluation and Treatment [CONS] Routine 05/15/19 21:00 Mirtazapine [Remeron] 30 mg PO BEDTIME 05/15/19 Breakfast Regular Diet [DIET] 05/16/19 05:11 C-REACTIVE PROTEIN [CHEM] AM CBC WITH AUTO DIFF [HEME] AM COMPREHENSIVE METABOLIC PN,CMP [CHEM] AM MAGNESIUM [CHEM] AM 05/16/19 09:00 Enoxaparin [Lovenox] 30 mg SUBCUT DAILY 05/17/19 05:11 C-REACTIVE PROTEIN [CHEM] AM CBC WITH AUTO DIFF [HEME] AM COMPREHENSIVE METABOLIC PN,CMP [CHEM] AM MAGNESIUM [CHEM] AM 05/18/19 05:11 C-REACTIVE PROTEIN [CHEM] AM CBC WITH AUTO DIFF [HEME] AM COMPREHENSIVE METABOLIC PN,CMP [CHEM] AM MAGNESIUM [CHEM] AM 05/19/19 05:11 C-REACTIVE PROTEIN [CHEM] AM CBC WITH AUTO DIFF [HEME] AM COMPREHENSIVE METABOLIC PN,CMP [CHEM] AM MAGNESIUM [CHEM] AM - Plan Plan:: Neurologic * GCS 15 * No confusion Cardiovascular * Mild fluid overload * Hypotension: acute on chronic. She has a history of borderline hypotension with SBP ranging from upper 80s to 110s. - resolved * History of arrhythmia of unknown type on propranolol * type II myocardial infarction: Troponin your 0.176; due to sepsis; ECG showed no ST-T changes. * repeat troponin 4 hours after first troponin * Continue treatment of underlying cause of type II myocardial infarction. No anticoagulation needed. * Stop norepinephrine drip * Strict I/Os * Echocardiogram 2/2 bacteriemia Pulmonology * Normal RR with mild increased respiratory effort * lungs bibasilar rales * on room air with SpO2 mid 90s * CXR - 1. Small bilateral pleural effusions and left basilar atelectasis or small area of pneumonia. 2. Pulmonary vessels appear slightly congested. Findings could represent fluid overload. * Decrease IV fluid. * incentive spirometer. Gastrointestinal/nutrition * Anorexia/bulimia * Moderate protein calorie malnutrition * decreased PO intake * Lower abdominal pain with minimal tenderness * Last BM 1 day go * Diet as tolerated * Dietary consult * encourage protein supplements * if abdominal pain persists may need CT scan in the morning Renal/electrolytes * Metabolic acidosis * Acute renal injury * AG 15.9 --> 17.6 * Hyponatremia: Na 128 --> 133 * severe Hypokalemia: K 2.9 --> 3.6-->2.0 * BUN 26-->19; Scr 1.2-->1.2-->1.1 * hypomagnesemia: 2.0 --> 1.5 * potassium chloride 40 mEq over 4 hours IV * K Dur 40 mEq by mouth * Repeat potassium one hour after potassium riders and replete according to findings. * magnesium 4 g IV * Restart home potassium in the morning. * Follow UOP and I/Os * Daily CMP, magnesium * D5 NS at 50 ml/hr Infectious disease * Severe sepsis * Complicated UTI * T. Max 102.9 * WBC 12.8 * CRP 22.1 * Blood cultures 2/4 positive Gm neg rods * UA: WBC 10-20; Moderate bacteria: Consistent with UTI, complicated by sepsis. * urine culture from [facility] positive for pansensitive Escherichia coli * Continue Rocephin * stop Zosyn * Daily CBC and C-reactive protein Hem/Onc * Hb 12.4 * Plts. 193 * VTE prophylaxis: enoxaparin * Daily CBC and C-reactive protein CODE STATUS: Full code
[2019-05-15] MEDS ORDERED: Potassium Chloride 20 MEQ Tab.ER PO ONE (17:29)
[2019-05-15] MEDS: cefTRIAXone 1 GM in Sodium Chloride 0.9% 100 ML IV SCH (17:51)
[2019-05-15] MEDS ORDERED: Magnesium Sulfate/Water 4 GM in Premix Bag 1 BAG IV ONE (17:55)
[2019-05-15] MEDS: Acetaminophen 325 MG Tab PO PRN (20:04)
[2019-05-15] MEDS: Mirtazapine 30 MG Tab PO SCH (20:36)
[2019-05-15] MEDS ORDERED: Potassium Chloride 20 MEQ Tab.ER PO SCH (21:00)
[2019-05-15] MEDS ORDERED: Insulin Lispro 100 Units/ML 3 ML Vial SUBCUT SCH (22:00)
[2019-05-16] MEDS: Levothyroxine 25 MCG Tab PO SCH (05:57)
[2019-05-16] MEDS: Potassium Chloride 20 MEQ Tab.ER PO SCH ×3 (09:18→16:10)
[2019-05-16] MEDS: Multivitamins,Therapeutic Tab PO SCH (09:18)
[2019-05-16] MEDS: Saccharomyces Boulardii (Probiotic) 250 MG Cap PO SCH ×2 (09:19→20:26)
[2019-05-16] MEDS: Enoxaparin 30 MG/0.3 ML Syringe SUBCUT SCH (09:20)
[2019-05-16] MEDS ORDERED: Potassium Chloride 20 MEQ Tab.ER PO ONE (10:17)
[2019-05-16] MEDS ORDERED: Metoprolol Tartrate 25 MG Tab PO SCH ×2 (11:00)
--- NOTE | 2019-05-16 13:14 | PCM.PN ---
- General Info Date of Service: 05/16/19 Admission Dx/Problem (Free Text): Admission Diagnosis/Problem Admission Diagnosis/Problem Septicemia due to Gram negative organism Subjective Update: patient states that she is feeling much better. She did have a temperature this morning of 100.7. Temperature has been waxing and waning with a MAXIMUM TEMPERATURE of 102.3 on admission. patient's appetite has increased. Functional Status: Reports: Pain Controlled - Review of Systems General: Reports: Fever HEENT: Reports: No Symptoms Pulmonary: Reports: No Symptoms Cardiovascular: Reports: No Symptoms Gastrointestinal: Reports: No Symptoms Musculoskeletal: Reports: No Symptoms - Patient Data Vitals - Most Recent: Last Vital Signs Temp 99.0 F 05/16/19 11:13 Pulse 106 H 05/16/19 11:17 Resp 18 05/16/19 11:13 BP 100/66 05/16/19 11:17 Pulse Ox 98 05/16/19 11:13 Weight - Most Recent: 104 lb 3.2 oz I&O - Last 24 Hours: Intake & Output 05/15/19 05/16/19 05/16/19 22:59 06:59 14:59 Intake Total 1353 1576 240 Output Total 400 Balance 1353 1576 -160 Lab Results Last 24 Hours: Laboratory Results - last 24 hr 05/14/19 05/15/19 05/15/19 Range/Units 20:32 16:39 16:39 WBC 7.94 (3.98-10.04) K/mm3 RBC 3.83 L (3.98-5.22) M/mm3 Hgb 10.9 L D (11.2-15.7) gm/dl Hct 32.3 L (34.1-44.9) % MCV 84.3 (79.4-94.8) fl MCH 28.5 (25.6-32.2) pg MCHC 33.7 (32.2-35.5) g/dl RDW Std Deviation 42.1 (36.4-46.3) fL Plt Count 177 L (182-369) K/mm3 MPV 9.1 L (9.4-12.3) fl Neut % (Auto) 80.2 H (34.0-71.1) % Lymph % (Auto) 8.6 L (19.3-51.7) % Bonner % (Auto) 9.3 (4.7-12.5) % Eos % (Auto) 1.3 (0.7-5.8) Baso % (Auto) 0.1 (0.1-1.2) % Neut # (Auto) 6.37 H (1.56-6.13) K/mm3 Lymph # (Auto) 0.68 L (1.18-3.74) K/mm3 Bonner # (Auto) 0.74 H (0.24-0.36) K/mm3 Eos # (Auto) 0.10 (0.04-0.36) K/mm3 Baso # (Auto) 0.01 (0.01-0.08) K/mm3 Manual Slide Review Abnormal smear Sodium 131 L (136-145) mEq/L Potassium 2.0 L* D (3.5-5.1) mEq/L Chloride 101 (98-107) mEq/L Carbon Dioxide 17 L (21-32) mEq/L Anion Gap 15.0 (5-15) BUN 16 (7-18) mg/dL Creatinine 1.1 H (0.55-1.02) mg/dL Est Cr Clr Drug Dosing 41.91 mL/min Estimated GFR (MDRD) 51 (>60) mL/min BUN/Creatinine Ratio 14.5 (14-18) Glucose 106 (74-106) mg/dL Lactic Acid (0.4-2.0) mmol/L Calcium 7.6 L (8.5-10.1) mg/dL Magnesium 1.5 L (1.8-2.4) mg/dl Total Bilirubin 0.2 (0.2-1.0) mg/dL AST 21 (15-37) U/L ALT 20 (14-59) U/L Alkaline Phosphatase 81 (46-116) U/L Troponin I 0.176 H* (0.00-0.056) ng/mL C-Reactive Protein 22.1 H* (<1.0) mg/dL Total Protein 5.2 L (6.4-8.2) g/dl Albumin 1.7 L (3.4-5.0) g/dl Globulin 3.5 gm/dL Albumin/Globulin Ratio 0.5 L (1-2) 05/15/19 05/15/19 05/16/19 Range/Units 16:39 21:10 04:37 WBC 8.46 (3.98-10.04) K/mm3 RBC 4.31 (3.98-5.22) M/mm3 Hgb 12.5 D (11.2-15.7) gm/dl Hct 36.4 (34.1-44.9) % MCV 84.5 (79.4-94.8) fl MCH 29.0 (25.6-32.2) pg MCHC 34.3 (32.2-35.5) g/dl RDW Std Deviation 43.3 (36.4-46.3) fL Plt Count 180 L (182-369) K/mm3 MPV 9.3 L (9.4-12.3) fl Neut % (Auto) 76.3 H (34.0-71.1) % Lymph % (Auto) 8.4 L (19.3-51.7) % Bonner % (Auto) 12.2 (4.7-12.5) % Eos % (Auto) 2.1 (0.7-5.8) Baso % (Auto) 0.1 (0.1-1.2) % Neut # (Auto) 6.45 H (1.56-6.13) K/mm3 Lymph # (Auto) 0.71 L (1.18-3.74) K/mm3 Bonner # (Auto) 1.03 H (0.24-0.36) K/mm3 Eos # (Auto) 0.18 (0.04-0.36) K/mm3 Baso # (Auto) 0.01 (0.01-0.08) K/mm3 Manual Slide Review Abnormal smear Sodium (136-145) mEq/L Potassium (3.5-5.1) mEq/L Chloride (98-107) mEq/L Carbon Dioxide (21-32) mEq/L Anion Gap (5-15) BUN (7-18) mg/dL Creatinine (0.55-1.02) mg/dL Est Cr Clr Drug Dosing mL/min Estimated GFR (MDRD) (>60) mL/min BUN/Creatinine Ratio (14-18) Glucose (74-106) mg/dL Lactic Acid 0.9 (0.4-2.0) mmol/L Calcium (8.5-10.1) mg/dL Magnesium (1.8-2.4) mg/dl Total Bilirubin (0.2-1.0) mg/dL AST (15-37) U/L ALT (14-59) U/L Alkaline Phosphatase (46-116) U/L Troponin I 0.174 H* (0.00-0.056) ng/mL C-Reactive Protein (<1.0) mg/dL Total Protein (6.4-8.2) g/dl Albumin (3.4-5.0) g/dl Globulin gm/dL Albumin/Globulin Ratio (1-2) 05/16/19 Range/Units 04:37 WBC (3.98-10.04) K/mm3 RBC (3.98-5.22) M/mm3 Hgb (11.2-15.7) gm/dl Hct (34.1-44.9) % MCV (79.4-94.8) fl MCH (25.6-32.2) pg MCHC (32.2-35.5) g/dl RDW Std Deviation (36.4-46.3) fL Plt Count (182-369) K/mm3 MPV (9.4-12.3) fl Neut % (Auto) (34.0-71.1) % Lymph % (Auto) (19.3-51.7) % Bonner % (Auto) (4.7-12.5) % Eos % (Auto) (0.7-5.8) Baso % (Auto) (0.1-1.2) % Neut # (Auto) (1.56-6.13) K/mm3 Lymph # (Auto) (1.18-3.74) K/mm3 Bonner # (Auto) (0.24-0.36) K/mm3 Eos # (Auto) (0.04-0.36) K/mm3 Baso # (Auto) (0.01-0.08) K/mm3 Manual Slide Review Sodium 136 (136-145) mEq/L Potassium 3.1 L (3.5-5.1) mEq/L Chloride 107 (98-107) mEq/L Carbon Dioxide 17 L (21-32) mEq/L Anion Gap 15.1 H (5-15) BUN 8 (7-18) mg/dL Creatinine 1.1 H (0.55-1.02) mg/dL Est Cr Clr Drug Dosing 41.59 mL/min Estimated GFR (MDRD) 51 (>60) mL/min BUN/Creatinine Ratio 7.3 L (14-18) Glucose 99 (74-106) mg/dL Lactic Acid (0.4-2.0) mmol/L Calcium 7.9 L (8.5-10.1) mg/dL Magnesium 2.4 (1.8-2.4) mg/dl Total Bilirubin 0.1 L (0.2-1.0) mg/dL AST 19 (15-37) U/L ALT 25 (14-59) U/L Alkaline Phosphatase 77 (46-116) U/L Troponin I 0.116 H* (0.00-0.056) ng/mL C-Reactive Protein 8.9 H* (<1.0) mg/dL Total Protein 5.5 L (6.4-8.2) g/dl Albumin 1.7 L (3.4-5.0) g/dl Globulin 3.8 gm/dL Albumin/Globulin Ratio 0.5 L (1-2) Claude Results Last 24 Hours: Microbiology 05/15/19 00:40 Urine Culture - Preliminary Urine, Clean Catch NO GROWTH AFTER 1 DAY Med Orders - Current: Current Medications Acetaminophen (Tylenol) 650 mg PO Q4H PRN PRN Reason: Pain (Mild 1-3)/fever Last Admin: 05/15/19 20:04 Dose: 650 mg Docusate Calcium (Surfak) 480 mg PO DAILY [facility] Last Admin: 05/16/19 09:18 Dose: 480 mg Enoxaparin Sodium (Lovenox) 30 mg SUBCUT DAILY [facility] Last Admin: 05/16/19 09:20 Dose: 30 mg Norepinephrine Bitartrate 4 mg (/ Dextrose/Water) 250 mls @ 7.5 mls/hr IV TITRATE VIRGILIO; Protocol Last Titration: 05/15/19 14:25 Dose: 0 mcg/min, 0 mls/hr Ceftriaxone Sodium 1 gm/ (Sodium Chloride) 100 mls @ 200 mls/hr IV Q24H VIRGILIO Last Admin: 05/15/19 17:51 Dose: 200 mls/hr Dextrose/Sodium Chloride (Dextrose 5%-Normal Saline) 1,000 mls @ 50 mls/hr IV ASDIRECTED [facility] Last Admin: 05/15/19 20:54 Dose: 50 mls/hr Levothyroxine Sodium (Levothyroxine) 25 mcg PO DAILY@0600 [facility] Last Admin: 05/16/19 05:57 Dose: 25 mcg Metoprolol Tartrate (Lopressor) 12.5 mg PO Q12H [facility] Last Admin: 05/16/19 11:17 Dose: 12.5 mg Mirtazapine (Remeron) 30 mg PO BEDTIME [facility] Last Admin: 05/15/19 20:36 Dose: 30 mg Multivitamins (Thera) 1 each PO DAILY [facility] Last Admin: 05/16/19 09:18 Dose: 1 each Ondansetron HCl (Zofran) 4 mg IV Q4H PRN PRN Reason: Nausea/Vomiting Potassium Chloride (Klor-Con M20) 20 meq PO TID@0800,1200,1700 [facility] Last Admin: 05/16/19 11:16 Dose: 20 meq Propranolol HCl (Inderal La) 60 mg PO DAILY [facility] Last Admin: 05/15/19 09:17 Dose: 60 mg Saccharomyces Boulardii (Florastor) 250 mg PO BID [facility] Last Admin: 05/16/19 09:19 Dose: 250 mg Discontinued Medications Enoxaparin Sodium (Lovenox) 40 mg SUBCUT DAILY [facility] Last Admin: 05/15/19 09:17 Dose: 40 mg Dextrose/Sodium Chloride (Dextrose 5%-Normal Saline) 1,000 mls @ 999 mls/hr IV ASDIRECTED [facility] Last Admin: 05/14/19 19:57 Dose: 999 mls/hr Ceftriaxone Sodium 1 gm/ (Sodium Chloride) 100 mls @ 200 mls/hr IV ONETIME ONE Stop: 05/14/19 20:22 Last Admin: 05/14/19 20:00 Dose: 200 mls/hr Piperacillin Sod/Tazobactam (Sod 4.5 gm/ Sodium Chloride) 100 mls @ 200 mls/hr IV ONETIME ONE Stop: 05/14/19 20:52 Last Admin: 05/14/19 20:45 Dose: 200 mls/hr Potassium Chloride 10 meq/ (Premix) 100 mls @ 100 mls/hr IV ONETIME ONE Stop: 05/14/19 22:44 Last Admin: 05/14/19 21:43 Dose: 100 mls/hr Dextrose/Lactated Ringer's (Dextrose 5%-Lactated Ringers) 1,000 mls @ 999 mls/ hr IV ASDIRECTED [facility] Last Admin: 05/14/19 22:11 Dose: 999 mls/hr Potassium Chloride 10 meq/ (Premix) 100 mls @ 100 mls/hr IV Q1H [facility] Stop: 05/15/19 02:59 Last Admin: 05/15/19 01:53 Dose: 100 mls/hr Piperacillin Sod/Tazobactam (Sod 4.5 gm/ Sodium Chloride) 100 mls @ 25 mls/hr IV Q8H [facility] Last Admin: 05/15/19 13:54 Dose: 25 mls/hr Dextrose/Sodium Chloride (Dextrose 5%-Normal Saline) 1,000 mls @ 125 mls/hr IV ASDIRECTED [facility] Last Infusion: 05/15/19 10:51 Dose: 50 mls/hr Magnesium Sulfate 4 gm/ Premix 50 mls @ 12.5 mls/hr IV ONETIME ONE Stop: 05/15/19 21:54 Last Admin: 05/15/19 18:24 Dose: 12.5 mls/hr Potassium Chloride 10 meq/ (Premix) 100 mls @ 100 mls/hr IV Q1H [facility] Stop: 05/15/19 23:14 Last Admin: 05/15/19 22:50 Dose: 100 mls/hr Ibuprofen (Motrin) 600 mg PO ONETIME ONE Stop: 05/14/19 19:55 Last Admin: 05/14/19 20:00 Dose: 600 mg Insulin Human Lispro (Humalog) 0 unit SUBCUT QIDACANDBED [facility]; Protocol Metoprolol Tartrate (Lopressor) 12.5 mg PO Q12H [facility] Ondansetron HCl (Zofran) 4 mg IVPUSH ONETIME ONE Stop: 05/14/19 19:53 Last Admin: 05/14/19 20:00 Dose: 4 mg Potassium Chloride (Klor-Con M20) 40 meq PO ONETIME ONE Stop: 05/15/19 17:30 Last Admin: 05/15/19 17:51 Dose: 40 meq Potassium Chloride (Klor-Con M20) 20 meq PO TIDMEALS [facility] Last Admin: 05/15/19 20:36 Dose: 20 meq Potassium Chloride (Klor-Con M20) 20 meq PO ONETIME ONE Stop: 05/16/19 10:18 Last Admin: 05/16/19 11:16 Dose: 20 meq - Exam Quality Assessment: No: Supplemental Oxygen General: Alert, Oriented HEENT: Pupils Equal, Pupils Reactive, EOMI, Mucous Membr. Moist/[place] Neck: Supple Lungs: Normal Respiratory Effort, Crackles (scant bibasilar crackles) Cardiovascular: Regular Rate GI/Abdominal Exam: Normal Bowel Sounds, Soft, Non-Tender, No Distention Back Exam: Normal Inspection Extremities: Normal Inspection, Non-Tender, No Pedal Edema Skin: Warm, Dry, Intact Neurological: No New Focal Deficit Psy/Mental Status: Alert, Normal Affect, Normal Mood - Problem List Review Problem List Initiated/Reviewed/Updated: Yes - My Orders Last 24 Hours: My Active Orders 05/15/19 15:16 PT Evaluation and Treatment [CONS] Routine 05/15/19 15:17 OT Evaluation and Treatment [CONS] Routine 05/15/19 16:15 EKG 12 Lead [EK] Routine 05/15/19 16:29 RT Incentive Spirometry [RC] ASDIRECTED 05/15/19 17:00 cefTRIAXone [Rocephin] 1 gm Sodium Chloride 0.9% [Normal Saline] 100 ml IV Q24H 05/15/19 21:00 Dextrose 5%-0.9% NaCl [Dextrose 5%-Normal Saline] 1,000 ml IV ASDIRECTED Mirtazapine [Remeron] 30 mg PO BEDTIME 05/16/19 08:00 Potassium Chloride [Klor-Con M20] 20 meq PO TID@0800,1200,1700 05/16/19 09:00 Enoxaparin [Lovenox] 30 mg SUBCUT DAILY 05/16/19 11:00 Metoprolol Tartrate [Lopressor] 12.5 mg PO Q12H 05/17/19 05:11 C-REACTIVE PROTEIN [CHEM] AM CBC WITH AUTO DIFF [HEME] AM COMPREHENSIVE METABOLIC PN,CMP [CHEM] AM MAGNESIUM [CHEM] AM 05/18/19 05:11 C-REACTIVE PROTEIN [CHEM] AM CBC WITH AUTO DIFF [HEME] AM COMPREHENSIVE METABOLIC PN,CMP [CHEM] AM MAGNESIUM [CHEM] AM 05/19/19 05:11 C-REACTIVE PROTEIN [CHEM] AM CBC WITH AUTO DIFF [HEME] AM COMPREHENSIVE METABOLIC PN,CMP [CHEM] AM MAGNESIUM [CHEM] AM - Plan Plan:: Neurologic * GCS 15 * No confusion Cardiovascular * Mild fluid overload - improving * Hypotension (improved): acute on chronic. She has a history of borderline hypotension with SBP ranging from upper 80s to 110s. - resolved * History of arrhythmia of unknown type on propranolol * type II myocardial infarction: Troponin 0.176-->0.116; due to sepsis; ECG showed no ST-T changes. * Switch from propranolol to metoprolol. * Continue treatment of underlying cause of type II myocardial infarction. No anticoagulation needed. * Off norepinephrine drip * Strict I/Os * Echocardiogram / bacteriemia Pulmonology * Normal RR and effort * lungs bibasilar rales - improved lung sounds * on room air with SpO2 mid 90s * CXR - 1. Small bilateral pleural effusions and left basilar atelectasis or small area of pneumonia. 2. Pulmonary vessels appear slightly congested. Findings could represent fluid overload. * Decrease IV fluid. * incentive spirometer. Gastrointestinal/nutrition * Anorexia/bulimia * Moderate protein calorie malnutrition * decreased PO intake * Lower abdominal pain with minimal tenderness * Last BM 1 day go * Diet as tolerated * Dietary consult * encourage protein supplements * if abdominal pain persists may need CT scan in the morning Renal/electrolytes * Metabolic acidosis * Acute renal injury * AG 15.9 --> 17.6 * Hyponatremia (resolved): Na 128 --> 133-->136 * severe Hypokalemia (improving): K 2.9 --> 3.6-->2.0--> 3.1 * BUN 26-->19; Scr 1.2-->1.2-->1.1 * hypomagnesemia (resolved): 2.0 --> 1.5-->2.4 * Daily wt stable * K Dur 20 mEq x4 today then tid tomorrow if stable (home dose) * Restart home potassium in the morning. * Follow UOP and I/Os * Daily CMP, magnesium * D5 NS at 50 ml/hr Infectious disease * Severe sepsis - resolved * Complicated UTI * T. Max last 24 hours 101 * WBC 12.8 -->8.46 * CRP 22.1-->8.9 * Blood cultures 2/4 positive E. coli - pansensitive * UA: WBC 10-20; Moderate bacteria: Consistent with UTI, complicated by sepsis. * Urine culture from [facility] positive for pansensitive Escherichia coli * Continue Rocephin * Daily CBC and C-reactive protein Hem/Onc * Hb 12.4 * Plts. 193 * VTE prophylaxis: enoxaparin * Daily CBC and C-reactive protein CODE STATUS: Full code
[2019-05-16] MEDS ORDERED: Metoprolol Tartrate 25 MG Tab PO ONE (15:43)
[2019-05-16] MEDS: cefTRIAXone 1 GM in Sodium Chloride 0.9% 100 ML IV SCH (16:15)
[2019-05-16] MEDS: Dextrose 5%-0.9% NaCl 1,000 ML IV SCH (16:23)
[2019-05-16] MEDS: Acetaminophen 325 MG Tab PO PRN (16:26)
[2019-05-16] MEDS ORDERED: Iopamidol 612 MG/ML 100 ML Bottle IVPUSH ONE (18:10)
[2019-05-16] MEDS ORDERED: Diatrizoate Meglumine/Diatrizoate Sodium 37% 120 ML Bottle PO ONE (18:10)
[2019-05-16] MEDS ORDERED: Sodium Chloride 0.9% 10 ML Syringe FLUSH ONE (18:10)
--- NOTE | 2019-05-16 19:03 | CT ---
CT abdomen and pelvis Technique: Multiple axial sections were obtained from above the dome of the diaphragm inferiorly through the pubic symphysis. Intravenous contrast was utilized. Findings: Small bilateral pleural effusions are seen with increased density within both lung bases adjacent to the pleural effusions presumably due to atelectasis although findings on the left side are slightly more prominent than the left side and could represent small area of pneumonia. Liver shows no focal parenchymal abnormality. Spleen shows an area of diminished enhancement measuring 2.4 cm. This is not identified on prior noncontrast CT study. Adrenal glands show no nodule. Pancreas shows no discrete abnormality. Gallbladder contains no calcified gallstones. Aorta shows no aneurysm. No retroperitoneal adenopathy is seen. No pelvic mass or adenopathy is seen. Delayed images shows contrast within both ureters as well as a small amount contrast within the bladder. Appendix not visualized with certainty. No bowel dilatation is seen. No free fluid or inflammatory change is seen. Bone window settings were reviewed which appear within normal limits for the patient's age. Impression: 1. Spleen shows an area of diminished enhancement. As mentioned above, this is not seen on prior CT study. Findings could represent an interval infarct as well as an area of infection. 2. Small bilateral pleural effusions. Bibasilar atelectasis. Difficult to exclude left lower lobe pneumonia as parenchymal density is slightly more prominent on the left side than right side. 3. Nothing acute is otherwise seen on CT study of the abdomen and pelvis. Diagnostic code #3
[2019-05-16] MEDS: Mirtazapine 30 MG Tab PO SCH (20:26)
[2019-05-16] MEDS: Metoprolol Tartrate 25 MG Tab PO SCH (22:34)
[2019-05-17] MEDS: Acetaminophen 325 MG Tab PO PRN ×2 (00:29→14:32)
[2019-05-17] MEDS ORDERED: Magnesium Sulfate/Water 4 GM in Premix Bag 1 BAG IV ONE (06:30)
[2019-05-17] MEDS: Potassium Chloride 10 MEQ in Premix Bag 1 BAG IV SCH ×4 (06:38→09:53)
[2019-05-17] MEDS: Levothyroxine 25 MCG Tab PO SCH (06:41)
[2019-05-17] MEDS: Potassium Chloride 20 MEQ Tab.ER PO SCH (07:44)
[2019-05-17] MEDS ORDERED: Potassium Chloride 20 MEQ Tab.ER PO ONE (08:00)
[2019-05-17] MEDS: Multivitamins,Therapeutic Tab PO SCH (08:51)
[2019-05-17] MEDS: Saccharomyces Boulardii (Probiotic) 250 MG Cap PO SCH ×2 (08:51→21:14)
[2019-05-17] MEDS: Enoxaparin 30 MG/0.3 ML Syringe SUBCUT SCH (08:52)
[2019-05-17] MEDS: Metoprolol Tartrate 25 MG Tab PO SCH ×2 (10:13→21:15)
[2019-05-17] MEDS: Potassium Chloride 10% 20 MEQ/15 ML Soln 15 ML UD Cup PO SCH ×3 (12:57→21:15)
[2019-05-17] MEDS: cefOXitin 2 GM in Premix Bag 1 BAG IV SCH (16:03)
[2019-05-17] MEDS: Mirtazapine 30 MG Tab PO SCH (21:15)
[2019-05-18] MEDS: cefOXitin 2 GM in Premix Bag 1 BAG IV SCH ×3 (01:01→15:11)
[2019-05-18] MEDS: Levothyroxine 25 MCG Tab PO SCH (05:36)
[2019-05-18] MEDS ORDERED: Magnesium Sulfate/Water 2 GM in Premix Bag 1 BAG IV ONE (08:04)
[2019-05-18] MEDS ORDERED: Sodium Chloride 0.9% 500 ML IV SCH (09:15)
[2019-05-18] MEDS: Potassium Chloride 10 MEQ in Premix Bag 1 BAG IV SCH ×4 (09:21→13:44)
[2019-05-18] MEDS: Potassium Chloride 10% 20 MEQ/15 ML Soln 15 ML UD Cup PO SCH ×2 (09:22→12:56)
[2019-05-18] MEDS: Metoprolol Tartrate 25 MG Tab PO SCH (09:23)
[2019-05-18] MEDS: Saccharomyces Boulardii (Probiotic) 250 MG Cap PO SCH (09:23)
[2019-05-18] MEDS: Multivitamins,Therapeutic Tab PO SCH (09:23)
[2019-05-18] MEDS: Enoxaparin 30 MG/0.3 ML Syringe SUBCUT SCH (09:26)
--- NOTE | 2019-05-18 13:40 | PCM.PN ---
- General Info Date of Service: 05/17/19 Admission Dx/Problem (Free Text): Admission Diagnosis/Problem Admission Diagnosis/Problem Septicemia due to Gram negative organism Subjective Update: patient did well overnight. She states she is feeling much better and only had a low-grade fever yesterday. Her diet is improving, but she still eats very little. Functional Status: Reports: Pain Controlled - Review of Systems General: Denies: Fever HEENT: Reports: No Symptoms Pulmonary: Reports: No Symptoms Cardiovascular: Reports: No Symptoms Gastrointestinal: Reports: No Symptoms Genitourinary: Reports: No Symptoms Neurological: Reports: No Symptoms Psychiatric: Reports: No Symptoms - Patient Data Vitals - Most Recent: Last Vital Signs Temp 97.9 F 05/18/19 11:41 Pulse 86 05/18/19 11:41 Resp 16 05/18/19 11:41 BP 100/60 05/18/19 11:41 Pulse Ox 100 05/18/19 11:41 Weight - Most Recent: 102 lb 6.4 oz I&O - Last 24 Hours: Intake & Output 05/17/19 05/18/19 05/18/19 22:59 06:59 14:59 Intake Total 1440 850 Output Total 300 1100 Balance 1140 -250 Lab Results Last 24 Hours: Laboratory Results - last 24 hr 05/17/19 05/18/19 05/18/19 Range/Units 14:40 04:56 04:56 WBC 6.86 (3.98-10.04) K/mm3 RBC 3.85 L (3.98-5.22) M/mm3 Hgb 11.0 L (11.2-15.7) gm/dl Hct 32.6 L (34.1-44.9) % MCV 84.7 (79.4-94.8) fl MCH 28.6 (25.6-32.2) pg MCHC 33.7 (32.2-35.5) g/dl RDW Std Deviation 44.7 (36.4-46.3) fL Plt Count 191 (182-369) K/mm3 MPV 9.0 L (9.4-12.3) fl Neut % (Auto) 54.7 (34.0-71.1) % Lymph % (Auto) 18.5 L (19.3-51.7) % [place] % (Auto) 20.3 H (4.7-12.5) % Eos % (Auto) 4.5 (0.7-5.8) Baso % (Auto) 0.3 (0.1-1.2) % Neut # (Auto) 3.75 (1.56-6.13) K/mm3 Lymph # (Auto) 1.27 (1.18-3.74) K/mm3 [place] # (Auto) 1.39 H (0.24-0.36) K/mm3 Eos # (Auto) 0.31 (0.04-0.36) K/mm3 Baso # (Auto) 0.02 (0.01-0.08) K/mm3 Manual Slide Review Abnormal smear Sodium 140 (136-145) mEq/L Potassium 3.6 3.3 L (3.5-5.1) mEq/L Chloride 108 H (98-107) mEq/L Carbon Dioxide 19 L (21-32) mEq/L Anion Gap 16.3 H (5-15) BUN 13 (7-18) mg/dL Creatinine 1.0 (0.55-1.02) mg/dL Est Cr Clr Drug Dosing 44.96 mL/min Estimated GFR (MDRD) 57 (>60) mL/min BUN/Creatinine Ratio 13.0 L (14-18) Glucose 92 (74-106) mg/dL Calcium 8.0 L (8.5-10.1) mg/dL Magnesium 1.8 (1.8-2.4) mg/dl Total Bilirubin 0.2 (0.2-1.0) mg/dL AST 18 (15-37) U/L ALT 20 (14-59) U/L Alkaline Phosphatase 62 (46-116) U/L C-Reactive Protein 4.5 H* (<1.0) mg/dL Total Protein 5.4 L (6.4-8.2) g/dl Albumin 1.8 L (3.4-5.0) g/dl Globulin 3.6 gm/dL Albumin/Globulin Ratio 0.5 L (1-2) Claude Results Last 24 Hours: Microbiology 05/16/19 17:12 Aerobic Blood Culture - Preliminary Blood - Venous - Lab Draw NO GROWTH AFTER 1 DAY Anaerobic Blood Culture - Preliminary NO GROWTH AFTER 1 DAY 05/16/19 17:20 Aerobic Blood Culture - Preliminary Blood - Venous NO GROWTH AFTER 1 DAY Anaerobic Blood Culture - Preliminary NO GROWTH AFTER 1 DAY 05/15/19 00:40 Urine Culture - Final Urine, Clean Catch NO GROWTH AFTER 2 DAYS Med Orders - Current: Current Medications Acetaminophen (Tylenol) 650 mg PO Q4H PRN PRN Reason: Pain (Mild 1-3)/fever Last Admin: 05/17/19 14:32 Dose: 650 mg Docusate Calcium (Surfak) 480 mg PO DAILY [facility] Last Admin: 05/18/19 09:22 Dose: 480 mg Enoxaparin Sodium (Lovenox) 30 mg SUBCUT DAILY [facility] Last Admin: 05/18/19 09:26 Dose: 30 mg Cefoxitin Sodium 2 gm/ Premix 50 mls @ 100 mls/hr IV Q8H [facility] Last Admin: 05/18/19 09:17 Dose: 100 mls/hr Sodium Chloride (Normal Saline) 500 mls @ 50 mls/hr IV .BOLUS [facility] Last Admin: 05/18/19 09:21 Dose: 50 mls/hr Levothyroxine Sodium (Levothyroxine) 25 mcg PO DAILY@0600 [facility] Last Admin: 05/18/19 05:36 Dose: 25 mcg Metoprolol Tartrate (Lopressor) 25 mg PO Q12H [facility] Last Admin: 05/18/19 09:23 Dose: 25 mg Mirtazapine (Remeron) 30 mg PO BEDTIME [facility] Last Admin: 05/17/19 21:15 Dose: 30 mg Multivitamins (Thera) 1 each PO DAILY [facility] Last Admin: 05/18/19 09:23 Dose: 1 each Ondansetron HCl (Zofran) 4 mg IV Q4H PRN PRN Reason: Nausea/Vomiting Potassium Chloride (Potassium Chloride Solution) 20 meq PO QID [facility] Last Admin: 05/18/19 12:56 Dose: 20 meq Saccharomyces Boulardii (Florastor) 250 mg PO BID [facility] Last Admin: 05/18/19 09:23 Dose: 250 mg Discontinued Medications Diatrizoate Meglum/Diatrizoate Sod (Gastrografin 37%) 90 ml PO ONETIME ONE Stop: 05/16/19 18:11 Last Admin: 05/16/19 18:26 Dose: 90 ml Enoxaparin Sodium (Lovenox) 40 mg SUBCUT DAILY [facility] Last Admin: 05/15/19 09:17 Dose: 40 mg Dextrose/Sodium Chloride (Dextrose 5%-Normal Saline) 1,000 mls @ 999 mls/hr IV ASDIRECTED [facility] Last Admin: 05/14/19 19:57 Dose: 999 mls/hr Ceftriaxone Sodium 1 gm/ (Sodium Chloride) 100 mls @ 200 mls/hr IV ONETIME ONE Stop: 05/14/19 20:22 Last Admin: 05/14/19 20:00 Dose: 200 mls/hr Piperacillin Sod/Tazobactam (Sod 4.5 gm/ Sodium Chloride) 100 mls @ 200 mls/hr IV ONETIME ONE Stop: 05/14/19 20:52 Last Admin: 05/14/19 20:45 Dose: 200 mls/hr Potassium Chloride 10 meq/ (Premix) 100 mls @ 100 mls/hr IV ONETIME ONE Stop: 05/14/19 22:44 Last Admin: 05/14/19 21:43 Dose: 100 mls/hr Dextrose/Lactated Ringer's (Dextrose 5%-Lactated Ringers) 1,000 mls @ 999 mls/ hr IV ASDIRECTED [facility] Last Admin: 05/14/19 22:11 Dose: 999 mls/hr Potassium Chloride 10 meq/ (Premix) 100 mls @ 100 mls/hr IV Q1H [facility] Stop: 05/15/19 02:59 Last Admin: 05/15/19 01:53 Dose: 100 mls/hr Piperacillin Sod/Tazobactam (Sod 4.5 gm/ Sodium Chloride) 100 mls @ 25 mls/hr IV Q8H [facility] Last Admin: 05/15/19 13:54 Dose: 25 mls/hr Dextrose/Sodium Chloride (Dextrose 5%-Normal Saline) 1,000 mls @ 125 mls/hr IV ASDIRECTED [facility] Last Infusion: 05/15/19 10:51 Dose: 50 mls/hr Norepinephrine Bitartrate 4 mg (/ Dextrose/Water) 250 mls @ 7.5 mls/hr IV TITRATE [facility]; Protocol Last Titration: 05/15/19 14:25 Dose: 0 mcg/min, 0 mls/hr Ceftriaxone Sodium 1 gm/ (Sodium Chloride) 100 mls @ 200 mls/hr IV Q24H [facility] Last Admin: 05/16/19 16:15 Dose: 200 mls/hr Magnesium Sulfate 4 gm/ Premix 50 mls @ 12.5 mls/hr IV ONETIME ONE Stop: 05/15/19 21:54 Last Admin: 05/15/19 18:24 Dose: 12.5 mls/hr Potassium Chloride 10 meq/ (Premix) 100 mls @ 100 mls/hr IV Q1H [facility] Stop: 05/15/19 23:14 Last Admin: 05/15/19 22:50 Dose: 100 mls/hr Dextrose/Sodium Chloride (Dextrose 5%-Normal Saline) 1,000 mls @ 50 mls/hr IV ASDIRECTED [facility] Last Admin: 05/16/19 16:23 Dose: 50 mls/hr Potassium Chloride 10 meq/ (Premix) 100 mls @ 100 mls/hr IV Q1H [facility] Stop: 05/17/19 10:29 Last Admin: 05/17/19 09:53 Dose: 100 mls/hr Magnesium Sulfate 4 gm/ Premix 50 mls @ 12.5 mls/hr IV ONETIME ONE Stop: 05/17/19 10:29 Last Admin: 05/17/19 06:32 Dose: 12.5 mls/hr Magnesium Sulfate 2 gm/ Premix 50 mls @ 25 mls/hr IV ONETIME ONE Stop: 05/18/19 10:03 Last Admin: 05/18/19 09:21 Dose: 25 mls/hr Potassium Chloride 10 meq/ (Premix) 100 mls @ 100 mls/hr IV Q1H [facility] Stop: 05/18/19 12:14 Last Admin: 05/18/19 11:51 Dose: 100 mls/hr Ibuprofen (Motrin) 600 mg PO ONETIME ONE Stop: 05/14/19 19:55 Last Admin: 05/14/19 20:00 Dose: 600 mg Insulin Human Lispro (Humalog) 0 unit SUBCUT QIDACANDBED [facility]; Protocol Iopamidol (Isovue-300 (61%)) 100 ml IVPUSH ONETIME ONE Stop: 05/16/19 18:11 Last Admin: 05/16/19 18:27 Dose: 100 ml Metoprolol Tartrate (Lopressor) 12.5 mg PO Q12H [facility] Metoprolol Tartrate (Lopressor) 12.5 mg PO Q12H [facility] Last Admin: 05/16/19 11:17 Dose: 12.5 mg Metoprolol Tartrate (Lopressor) 12.5 mg PO ONETIME ONE Stop: 05/16/19 15:44 Last Admin: 05/16/19 16:09 Dose: 12.5 mg Ondansetron HCl (Zofran) 4 mg IVPUSH ONETIME ONE Stop: 05/14/19 19:53 Last Admin: 05/14/19 20:00 Dose: 4 mg Potassium Chloride (Klor-Con M20) 40 meq PO ONETIME ONE Stop: 05/15/19 17:30 Last Admin: 05/15/19 17:51 Dose: 40 meq Potassium Chloride (Klor-Con M20) 20 meq PO TIDMEALS [facility] Last Admin: 05/15/19 20:36 Dose: 20 meq Potassium Chloride (Klor-Con M20) 20 meq PO TID@0800,1200,1700 [facility] Last Admin: 05/17/19 07:44 Dose: 20 meq Potassium Chloride (Klor-Con M20) 20 meq PO ONETIME ONE Stop: 05/16/19 10:18 Last Admin: 05/16/19 11:16 Dose: 20 meq Potassium Chloride (Klor-Con M20) 20 meq PO ONETIME ONE Stop: 05/17/19 08:01 Last Admin: 05/17/19 07:44 Dose: 20 meq Propranolol HCl (Inderal La) 60 mg PO DAILY [facility] Last Admin: 05/15/19 09:17 Dose: 60 mg Sodium Chloride (Saline Flush) 10 ml FLUSH ONETIME ONE Stop: 05/16/19 18:11 Last Admin: 05/16/19 18:27 Dose: 10 ml - Exam General: Alert, Oriented HEENT: Pupils Equal Neck: Supple Lungs: Clear to Auscultation, Normal Respiratory Effort Cardiovascular: Regular Rate, Regular Rhythm GI/Abdominal Exam: Normal Bowel Sounds, Soft, Non-Tender, No Organomegaly, No Distention, No Abnormal Bruit, No Mass, Pelvis Stable Back Exam: Normal Inspection Extremities: Normal Inspection, Normal Range of Motion, Non-Tender, No Pedal Edema, Normal Capillary Refill Skin: Warm, Dry, Intact Neurological: No New Focal Deficit Psy/Mental Status: Alert, Normal Affect, Normal Mood - Problem List Review Problem List Initiated/Reviewed/Updated: Yes - My Orders Last 24 Hours: My Active Orders 05/17/19 13:00 Potassium Chloride [Potassium Chloride Solution] 20 meq PO QID 05/17/19 14:44 Patient Status [ADT] Routine 05/17/19 16:00 cefOXitin [Mefoxin in Dextrose,Iso-Osm 2 GM/50 ML] 2 gm Premix Bag 1 bag IV Q8H 05/18/19 09:15 Sodium Chloride 0.9% [Normal Saline] 500 ml IV .BOLUS 05/18/19 13:34 Ready for Discharge [RC] PER UNIT ROUTINE 05/19/19 05:11 C-REACTIVE PROTEIN [CHEM] AM CBC WITH AUTO DIFF [HEME] AM COMPREHENSIVE METABOLIC PN,CMP [CHEM] AM MAGNESIUM [CHEM] AM - Plan Plan:: Neurologic * GCS 15 * No confusion Cardiovascular * Mild fluid overload - improving * Hypotension (improved): acute on chronic. She has a history of borderline hypotension with SBP ranging from upper 80s to 110s. - resolved * History of arrhythmia of unknown type on propranolol * type II myocardial infarction: Troponin 0.176-->0.116; due to sepsis; ECG showed no ST-T changes. * Switch from propranolol to metoprolol. * Continue treatment of underlying cause of type II myocardial infarction. No anticoagulation needed. * Off norepinephrine drip * Strict I/Os * Echocardiogram 09/06 bacteriemia Pulmonology * Normal RR and effort * lungs bibasilar rales - improved lung sounds * on room air with SpO2 mid 90s * CXR - 1. Small bilateral pleural effusions and left basilar atelectasis or small area of pneumonia. 2. Pulmonary vessels appear slightly congested. Findings could represent fluid overload. * Decrease IV fluid. * incentive spirometer. Gastrointestinal/nutrition * Anorexia/bulimia * Moderate protein calorie malnutrition * decreased PO intake * Lower abdominal pain with minimal tenderness * Last BM 1 day go * Diet as tolerated * Dietary consult * encourage protein supplements * if abdominal pain persists may need CT scan in the morning Renal/electrolytes * Metabolic acidosis - resolved * Acute renal injury - resolved * Hyponatremia (resolved) * severe Hypokalemia (improving): K 2.9 --> 3.6-->2.0--> 3.1 -->2.3 * hypomagnesemia (resolved) * Daily wt stable * K Dur 20 mEq x4 today then tid tomorrow if stable (home dose) * Restart home potassium in the morning. * Follow UOP and I/Os * Daily CMP, magnesium Infectious disease * Severe sepsis - resolved * Complicated UTI * T. Max last 24 hours 101 * WBC 12.8 -->8.46 -->7.3 * CRP 22.1-->8.9 --> 5.2 * Blood cultures 2/4 positive E. coli - pansensitive * UA: WBC 10-20; Moderate bacteria: Consistent with UTI, complicated by sepsis. * Urine culture from [facility] positive for pansensitive Escherichia coli * Continue Rocephin * Daily CBC and C-reactive protein Hem/Onc * VTE prophylaxis: enoxaparin * Daily CBC and C-reactive protein CODE STATUS: Full code
--- NOTE | 2019-05-18 13:41 | PCM.DCSUM1 ---
Discharge Summary - Hospital Course Brief History: 59-year-old female returned to the emergency room today secondary to fever, chills, and rigors. Patient was sent yesterday from the clinic secondary to fever of 100.1, hyponatremia at 123, WBC 24,004 end depletion. Patient was given IV fluids, Rocephin, and blood cultures. Lactic acid was negative at 1.4 and a lipase was 192. It was recommended the patient stay for further evaluation and treatment, the patient elected to go home. Blood cultures did grow out gram-positive rods and she returned at noon for 1 g IV Rocephin. She returns to the emergency room a few hours later secondary to fever and chills. When patient returned her white count did decrease to 12.8, sodium increased to 128, and potassium decreased to 2.9. Renal function was steady at 26 BUN and creatinine of 1.2. Minimal anion gap of 15.9. Unfortunately , blood pressure dropped to 67/43 with a mean arterial pressure of 52. 2 L of D5 LR were bolused and she was transferred to the intensive care unit. She was given another gram of Rocephin and started on Zosyn. Patient states that starting on Saturday, 2 days ago she had decreasing appetite with low back pain. She had low back pain for one week. On Saturday also she had decreased by mouth intake and she had decreased urinary output. She has had decreased difficulty eating after getting a tooth extraction back in January. Her dentures make her gag. Back pain currently as 5 out of 10 and is a dull ache, improved with heating pads and worse with movement. She has been seeing a dietitian because of her anorexia. She has gained 20 pounds since August of this year when she was hospitalized for urosepsis. she states that she is on propranolol for some kind of irregular heartbeat, potassium supplementation, Remeron, and levothyroxine. Diagnosis: Stroke: No - Discharge Data Discharge Date: 05/18/19 Discharge Disposition: Home, Self-Care 01 Condition: Good - Referral to Home Health Primary Care Physician: Shelli Laws NP - Patient Summary/Data Consults: Consultations 05/14/19 22:45 Consult to Pricing Actuary [CONS] Routine 05/15/19 15:16 PT Evaluation and Treatment [CONS] Routine 05/15/19 15:17 OT Evaluation and Treatment [CONS] Routine Hospital Course: Patient was admitted with severe sepsis, complicated UTI, hypotension requiring vasopressors, bacteremia, moderate calorie and protein malnutrition, and metabolic acidosis. On day 2 patient was diagnosed with type II myocardial infarction secondary to positive troponin 0.176 that did decrease to 0.116. There were no EKG changes. We switched her from propranolol to metoprolol. We were able to wean off her norepinephrine also on day 2. Her blood pressures remained tenuous and often with a mean arterial pressure just at 65. She has significant protein calorie malnutrition secondary to her anorexia. Dietary was consultative and she is encouraged to increase diet and follow dietary recommendations. Patient also had recurrence of fever up to 101.[address] of the abdomen. Spleen shows an area of diminished enhancement. This measured 2.4 cm and could be secondary to an interval infarct or an area of infection. Patient had normalization of her white count and near normalization of her C-reactive protein at 4.5. She was afebrile for 48 hours prior to discharge. Initial blood cultures and urine culture done at the clinic and the first emergency room visit were positive for pansensitive Escherichia coli. She will be sent home to finish a 10 day course of antibiotics. She will be sent home on Keflex 500 mg 4 times a day. Repeat blood cultures were negative at time of discharge. Echocardiogram was done secondary to bacteremia: Ejection fraction 55-60%, mild aortic valve sclerosis, mild calcification of the mitral anterior and posterior leaflets, moderate mitral valve regurgitation. Please see full report. No vegetations - Patient Instructions Diet: Usual Diet as Tolerated Activity: As Tolerated Driving: Do Not Drive Showering/Bathing: May Shower Other/Special Instructions: Follow up with you PCP in the next two days for recheck and to have you potassium checked. - Discharge Plan *PRESCRIPTION DRUG MONITORING PROGRAM REVIEWED*: Not Applicable *COPY OF PRESCRIPTION DRUG MONITORING REPORT IN PATIENT DAVID: Not Applicable Prescriptions/Med Rec: cephALEXin [Keflex] 500 mg PO Q6H #32 cap Metoprolol Tartrate [Lopressor] 25 mg PO Q12H #60 tablet Potassium Chloride [Potassium Chloride Solution] 20 meq PO QID #500 ml Home Medications: Home Meds Mirtazapine [Remeron] 30 mg PO BEDTIME 30 Days #30 tablet 09/05/18 [Rx] Saccharomyces Boulardii [Florastor] 250 mg PO BID 15 Days #30 cap 09/05/18 [Rx] Levothyroxine 25 mcg PO DAILY 05/14/19 [History] Docusate Calcium [Surfak] 2 tab PO DAILY 05/15/19 [History] Metoprolol Tartrate [Lopressor] 25 mg PO Q12H #60 tablet 05/18/19 [Rx] Potassium Chloride [Potassium Chloride Solution] 20 meq PO QID #500 ml 05/18/19 [Rx] cephALEXin [Keflex] 500 mg PO Q6H #32 cap 05/18/19 [Rx] Oxygen Therapy Mode: Room Air Patient Handouts: Urinary Tract Infection, Adult, [id number] Forms: ED Department Discharge Referrals: Shelli Laws NP [Primary Care Provider] - 05/19/19 11:15 am (Please follow up with Shelli Laws on Saturday at 1115. ) - Discharge Summary/Plan Comment DC Time >30 min.: Yes Discharge Summary/Plan Comment: follow-up with your primary care provider in the next 2 days. You have significant electrolyte imbalance issues and need close follow-up of your potassium and magnesium. Please finish antibiotics as prescribed. - General Info Date of Service: 05/18/19 Admission Dx/Problem (Free Text: Admission Diagnosis/Problem Admission Diagnosis/Problem Septicemia due to Gram negative organism Subjective Update: patient states that she is feeling well. She denies any pain today. She has more energy and a better appetite. Functional Status: Reports: Pain Controlled - Review of Systems General: Reports: No Symptoms HEENT: Reports: No Symptoms Pulmonary: Reports: No Symptoms Cardiovascular: Reports: No Symptoms Gastrointestinal: Reports: No Symptoms Musculoskeletal: Reports: No Symptoms - Patient Data Vitals - Most Recent: Last Vital Signs Temp 97.9 F 05/18/19 11:41 Pulse 86 05/18/19 11:41 Resp 16 05/18/19 11:41 BP 100/60 05/18/19 11:41 Pulse Ox 100 05/18/19 11:41 Weight - Most Recent: 102 lb 6.4 oz I&O - Last 24 hours: Intake & Output 05/17/19 05/18/19 05/18/19 22:59 06:59 14:59 Intake Total 1440 850 Output Total 300 1100 Balance 1140 -250 Lab Results - Last 24 hrs: Laboratory Results - last 24 hr 05/17/19 05/18/19 05/18/19 Range/Units 14:40 04:56 04:56 WBC 6.86 (3.98-10.04) K/mm3 RBC 3.85 L (3.98-5.22) M/mm3 Hgb 11.0 L (11.2-15.7) gm/dl Hct 32.6 L (34.1-44.9) % MCV 84.7 (79.4-94.8) fl MCH 28.6 (25.6-32.2) pg MCHC 33.7 (32.2-35.5) g/dl RDW Std Deviation 44.7 (36.4-46.3) fL Plt Count 191 (182-369) K/mm3 MPV 9.0 L (9.4-12.3) fl Neut % (Auto) 54.7 (34.0-71.1) % Lymph % (Auto) 18.5 L (19.3-51.7) % [place] % (Auto) 20.3 H (4.7-12.5) % Eos % (Auto) 4.5 (0.7-5.8) Baso % (Auto) 0.3 (0.1-1.2) % Neut # (Auto) 3.75 (1.56-6.13) K/mm3 Lymph # (Auto) 1.27 (1.18-3.74) K/mm3 [place] # (Auto) 1.39 H (0.24-0.36) K/mm3 Eos # (Auto) 0.31 (0.04-0.36) K/mm3 Baso # (Auto) 0.02 (0.01-0.08) K/mm3 Manual Slide Review Abnormal smear Sodium 140 (136-145) mEq/L Potassium 3.6 3.3 L (3.5-5.1) mEq/L Chloride 108 H (98-107) mEq/L Carbon Dioxide 19 L (21-32) mEq/L Anion Gap 16.3 H (5-15) BUN 13 (7-18) mg/dL Creatinine 1.0 (0.55-1.02) mg/dL Est Cr Clr Drug Dosing 44.96 mL/min Estimated GFR (MDRD) 57 (>60) mL/min BUN/Creatinine Ratio 13.0 L (14-18) Glucose 92 (74-106) mg/dL Calcium 8.0 L (8.5-10.1) mg/dL Magnesium 1.8 (1.8-2.4) mg/dl Total Bilirubin 0.2 (0.2-1.0) mg/dL AST 18 (15-37) U/L ALT 20 (14-59) U/L Alkaline Phosphatase 62 (46-116) U/L C-Reactive Protein 4.5 H* (<1.0) mg/dL Total Protein 5.4 L (6.4-8.2) g/dl Albumin 1.8 L (3.4-5.0) g/dl Globulin 3.6 gm/dL Albumin/Globulin Ratio 0.5 L (1-2) CARY Results - Last 24 hrs: Microbiology 05/16/19 17:12 Aerobic Blood Culture - Preliminary Blood - Venous - Lab Draw NO GROWTH AFTER 1 DAY Anaerobic Blood Culture - Preliminary NO GROWTH AFTER 1 DAY 05/16/19 17:20 Aerobic Blood Culture - Preliminary Blood - Venous NO GROWTH AFTER 1 DAY Anaerobic Blood Culture - Preliminary NO GROWTH AFTER 1 DAY 05/15/19 00:40 Urine Culture - Final Urine, Clean Catch NO GROWTH AFTER 2 DAYS Med Orders - Current: Current Medications Acetaminophen (Tylenol) 650 mg PO Q4H PRN PRN Reason: Pain (Mild 1-3)/fever Last Admin: 05/17/19 14:32 Dose: 650 mg Docusate Calcium (Surfak) 480 mg PO DAILY [facility] Last Admin: 05/18/19 09:22 Dose: 480 mg Enoxaparin Sodium (Lovenox) 30 mg SUBCUT DAILY [facility] Last Admin: 05/18/19 09:26 Dose: 30 mg Cefoxitin Sodium 2 gm/ Premix 50 mls @ 100 mls/hr IV Q8H [facility] Last Admin: 05/18/19 09:17 Dose: 100 mls/hr Sodium Chloride (Normal Saline) 500 mls @ 50 mls/hr IV .BOLUS [facility] Last Admin: 05/18/19 09:21 Dose: 50 mls/hr Levothyroxine Sodium (Levothyroxine) 25 mcg PO DAILY@0600 [facility] Last Admin: 05/18/19 05:36 Dose: 25 mcg Metoprolol Tartrate (Lopressor) 25 mg PO Q12H [facility] Last Admin: 05/18/19 09:23 Dose: 25 mg Mirtazapine (Remeron) 30 mg PO BEDTIME [facility] Last Admin: 05/17/19 21:15 Dose: 30 mg Multivitamins (Thera) 1 each PO DAILY [facility] Last Admin: 05/18/19 09:23 Dose: 1 each Ondansetron HCl (Zofran) 4 mg IV Q4H PRN PRN Reason: Nausea/Vomiting Potassium Chloride (Potassium Chloride Solution) 20 meq PO QID [facility] Last Admin: 05/18/19 12:56 Dose: 20 meq Saccharomyces Boulardii (Florastor) 250 mg PO BID [facility] Last Admin: 05/18/19 09:23 Dose: 250 mg Discontinued Medications Diatrizoate Meglum/Diatrizoate Sod (Gastrografin 37%) 90 ml PO ONETIME ONE Stop: 05/16/19 18:11 Last Admin: 05/16/19 18:26 Dose: 90 ml Enoxaparin Sodium (Lovenox) 40 mg SUBCUT DAILY [facility] Last Admin: 05/15/19 09:17 Dose: 40 mg Dextrose/Sodium Chloride (Dextrose 5%-Normal Saline) 1,000 mls @ 999 mls/hr IV ASDIRECTED [facility] Last Admin: 05/14/19 19:57 Dose: 999 mls/hr Ceftriaxone Sodium 1 gm/ (Sodium Chloride) 100 mls @ 200 mls/hr IV ONETIME ONE Stop: 05/14/19 20:22 Last Admin: 05/14/19 20:00 Dose: 200 mls/hr Piperacillin Sod/Tazobactam (Sod 4.5 gm/ Sodium Chloride) 100 mls @ 200 mls/hr IV ONETIME ONE Stop: 05/14/19 20:52 Last Admin: 05/14/19 20:45 Dose: 200 mls/hr Potassium Chloride 10 meq/ (Premix) 100 mls @ 100 mls/hr IV ONETIME ONE Stop: 05/14/19 22:44 Last Admin: 05/14/19 21:43 Dose: 100 mls/hr Dextrose/Lactated Ringer's (Dextrose 5%-Lactated Ringers) 1,000 mls @ 999 [facility]ls[facility] Admin: 05/14/19 22:11 Dose: 999 mls/hr Potassium Chloride 10 meq/ (Premix) 100 mls @ 100 mls/hr IV Q1H [facility] Stop: 05/15/19 02:59 Last Admin: 05/15/19 01:53 Dose: 100 mls/hr Piperacillin Sod/Tazobactam (Sod 4.5 gm/ Sodium Chloride) 100 mls @ 25 mls/hr IV Q8H [facility] Last Admin: 05/15/19 13:54 Dose: 25 mls/hr Dextrose/Sodium Chloride (Dextrose 5%-Normal Saline) 1,000 mls @ 125 mls/hr IV ASDIRECTED [facility] Last Infusion: 05/15/19 10:51 Dose: 50 mls/hr Norepinephrine Bitartrate 4 mg (/ Dextrose/Water) 250 mls @ 7.5 mls/hr IV TITRATE [facility]; Protocol Last Titration: 05/15/19 14:25 Dose: 0 mcg/min, 0 mls/hr Ceftriaxone Sodium 1 gm/ (Sodium Chloride) 100 mls @ 200 mls/hr IV Q24H [facility] Last Admin: 05/16/19 16:15 Dose: 200 mls/hr Magnesium Sulfate 4 gm/ Premix 50 mls @ 12.5 mls/hr IV ONETIME ONE Stop: 05/15/19 21:54 Last Admin: 05/15/19 18:24 Dose: 12.5 mls/hr Potassium Chloride 10 meq/ (Premix) 100 mls @ 100 mls/hr IV Q1H [facility] Stop: 05/15/19 23:14 Last Admin: 05/15/19 22:50 Dose: 100 mls/hr Dextrose/Sodium Chloride (Dextrose 5%-Normal Saline) 1,000 mls @ 50 mls/hr IV ASDIRECTED [facility] Last Admin: 05/16/19 16:23 Dose: 50 mls/hr Potassium Chloride 10 meq/ (Premix) 100 mls @ 100 mls/hr IV Q1H [facility] Stop: 05/17/19 10:29 Last Admin: 05/17/19 09:53 Dose: 100 mls/hr Magnesium Sulfate 4 gm/ Premix 50 mls @ 12.5 mls/hr IV ONETIME ONE Stop: 05/17/19 10:29 Last Admin: 05/17/19 06:32 Dose: 12.5 mls/hr Magnesium Sulfate 2 gm/ Premix 50 mls @ 25 mls/hr IV ONETIME ONE Stop: 05/18/19 10:03 Last Admin: 05/18/19 09:21 Dose: 25 mls/hr Potassium Chloride 10 meq/ (Premix) 100 mls @ 100 mls/hr IV Q1H [facility] Stop: 05/18/19 12:14 Last Admin: 05/18/19 11:51 Dose: 100 mls/hr Ibuprofen (Motrin) 600 mg PO ONETIME ONE Stop: 05/14/19 19:55 Last Admin: 05/14/19 20:00 Dose: 600 mg Insulin Human Lispro (Humalog) 0 unit SUBCUT QIDACANDBED [facility]; Protocol Iopamidol (Isovue-300 (61%)) 100 ml IVPUSH ONETIME ONE Stop: 05/16/19 18:11 Last Admin: 05/16/19 18:27 Dose: 100 ml Metoprolol Tartrate (Lopressor) 12.5 mg PO Q12H [facility] Metoprolol Tartrate (Lopressor) 12.5 mg PO Q12H [facility] Last Admin: 05/16/19 11:17 Dose: 12.5 mg Metoprolol Tartrate (Lopressor) 12.5 mg PO ONETIME ONE Stop: 05/16/19 15:44 Last Admin: 05/16/19 16:09 Dose: 12.5 mg Ondansetron HCl (Zofran) 4 mg IVPUSH ONETIME ONE Stop: 05/14/19 19:53 Last Admin: 05/14/19 20:00 Dose: 4 mg Potassium Chloride (Klor-Con M20) 40 meq PO ONETIME ONE Stop: 05/15/19 17:30 Last Admin: 05/15/19 17:51 Dose: 40 meq Potassium Chloride (Klor-Con M20) 20 meq PO TIDMEALS [facility] Last Admin: 05/15/19 20:36 Dose: 20 meq Potassium Chloride (Klor-Con M20) 20 meq PO TID@0800,1200,1700 [facility] Last Admin: 05/17/19 07:44 Dose: 20 meq Potassium Chloride (Klor-Con M20) 20 meq PO ONETIME ONE Stop: 05/16/19 10:18 Last Admin: 05/16/19 11:16 Dose: 20 meq Potassium Chloride (Klor-Con M20) 20 meq PO ONETIME ONE Stop: 05/17/19 08:01 Last Admin: 05/17/19 07:44 Dose: 20 meq Propranolol HCl (Inderal La) 60 mg PO DAILY [facility] Last Admin: 05/15/19 09:17 Dose: 60 mg Sodium Chloride (Saline Flush) 10 ml FLUSH ONETIME ONE Stop: 05/16/19 18:11 Last Admin: 05/16/19 18:27 Dose: 10 ml - Exam Quality Assessment: Denies: Supplemental Oxygen General: Reports: Alert, Oriented HEENT: Reports: Pupils Equal, Pupils Reactive, EOMI, Mucous Membr. Moist/[place] Neck: Reports: Supple Lungs: Reports: Clear to Auscultation, Normal Respiratory Effort Cardiovascular: Reports: Regular Rate, Regular Rhythm GI/Abdominal Exam: Normal Bowel Sounds, Soft, Non-Tender, No Organomegaly, No Distention, No Abnormal Bruit, No Mass Extremities: Normal Inspection, Normal Range of Motion, Non-Tender, No Pedal Edema, Normal Capillary Refill Skin: Reports: Warm, Dry, Intact Neurological: Reports: No New Focal Deficit Psy/Mental Status: Reports: Alert, Normal Affect, Normal Mood
[2019-05-18 16:57] VITALS: BP 98/54; PULSE 94
== END 2019-05-18 16:35 | disposition home or self-care (01) | DRG 720 ==
LOC: JD.ED 19:29 → JD.ICU 22:06 → JD.MS 05-17 19:45
PROVIDERS: ADMIT Family Medicine; ATTEND Family Medicine
DX: A41.51 Sepsis due to Escherichia coli [E. coli] (principal); R65.20 Severe sepsis without septic shock; N39.0 Urinary tract infection, site not specified; E44.0 Moderate protein-calorie malnutrition; E87.2 Acidosis; I21.A1 Myocardial infarction type 2; I34.0 Nonrheumatic mitral (valve) insufficiency; I70.0 Atherosclerosis of aorta; M54.5 Low back pain; E87.1 Hypo-osmolality and hyponatremia; H54.7 Unspecified visual loss; K21.9 Gastro-esophageal reflux disease without esophagitis; F41.9 Anxiety disorder, unspecified; F32.9 Major depressive disorder, single episode, unspecified; E53.8 Deficiency of other specified B group vitamins; D75.1 Secondary polycythemia; N17.9 Acute kidney failure, unspecified; E87.6 Hypokalemia; R40.2413 Glasgow coma scale score 13-15, at hospital admission; E83.42 Hypomagnesemia; J90 Pleural effusion, not elsewhere classified; Z98.51 Tubal ligation status; Z79.899 Other long term (current) drug therapy; Z68.1 Body mass index [BMI] 19.9 or less, adult
CPT/HCPCS: 36415; 71045; 71045-26; 74177; 74177-26; 80053; 81001; 82009; 83605; 83690; 83735; 84132; 84443; 84484; 85007; 85025; 85027; 86140; 87040; 87086; 87804; 93005; 93010; 93306; 96365; 96367; 96375; 97161-GP; 97165-GO; 99285; 99285-25; A9270-GY; J0694; J0696; J1650; J2405; J2543; J3475; J3480; J7030; J7040; J7042; J7060; Q9963; Q9967

== ENCOUNTER 2019-08-25 14:07 | Emergency (ER) | payer OTHER, BC ==
--- NOTE | 2019-08-25 14:31 | EDM.PDOC ---
ED HPI GENERAL MEDICAL PROBLEM - General Chief Complaint: Head Injury Stated Complaint: HEAD INJURY Time Seen by Provider: 08/25/19 14:11 Source of Information: Reports: Patient, RN Notes Reviewed History Limitations: Reports: No Limitations - History of Present Illness INITIAL COMMENTS - FREE TEXT/NARRATIVE: Patient is a 59-year-old female who presents to the ED for the evaluation of a head injury. The patient notes that she slipped and fell on the ice yesterday, and ended up hitting the back of her head on the ice. She denies any loss of consciousness or blacking out at the time of injury. She states she has had a mild headache since the injury, she is taken some Tylenol however this is not really provided much pain relief. She was evaluated at the clinic as she had a laceration on the back of her head at the site of injury, however no repair was done as this was a superficial injury and it could not be sutured shut. Patient denies being on any sort of blood thinners at all. The patient states that after the injury, she feels a little bit light sensitive, she had nausea yesterday with some resultant vomiting. But she is not having any vomiting now , still feels a little bit nauseous. She states however she cannot keep water down. She is not complaining of any dizziness or lightheadedness. Her blood pressure at time of triage is low, but she states that is normal for her. She states that at the clinic her blood pressure was 100 systolically and they were in all because she states it is not been that high in a long time. Patient's primary care provider is Shelli Laws. Head Pain Score (Numeric/FACES): 8 - Related Data Allergies Allergy/AdvReac Type Severity Reaction Status Date / Time No Known Allergies Allergy Verified 08/25/19 14:15 Home Meds: Home Meds Mirtazapine [Remeron] 30 mg PO BEDTIME 30 Days #30 tablet 09/05/18 [Rx] Saccharomyces Boulardii [Florastor] 250 mg PO BID 15 Days #30 cap 09/05/18 [Rx] Levothyroxine 25 mcg PO DAILY 05/14/19 [History] Docusate Calcium [Surfak] 2 tab PO DAILY 05/15/19 [History] Metoprolol Tartrate [Lopressor] 25 mg PO Q12H #60 tablet 05/18/19 [Rx] Potassium Chloride [Potassium Chloride Solution] 20 meq PO QID #500 ml 05/18/19 [Rx] cephALEXin [Keflex] 500 mg PO Q6H #32 cap 05/18/19 [Rx] Past Medical History HEENT History: Reports: Impaired Vision Other HEENT History: wears corrective lenses Cardiovascular History: Reports: Other (See Below) Other Cardiovascular History: tachycardia Gastrointestinal History: Reports: GERD Genitourinary History: Reports: Urinary Incontinence, UTI, Recurrent [employer]OR History: Reports: Psychiatric History: Reports: Anxiety, Depression, Eating Disorders Other Psychiatric History: Patient stated she was bullemic in high school into college Endocrine/Metabolic History: Reports: Vitamin D Deficiency Hematologic History: Reports: Polycythemia - Past Surgical History Female Surgical History: Reports: Tubal Ligation Social & Family History - Family History Neurological: Reports: Alzheimers Disease Endocrine/Metabolic: Reports: Hypothyroidism Oncologic: Reports: Other (See Below) Other Oncologic Family History: Brother had cancer started in spine and spread to bones - Tobacco Use Smoking Status *Q: Never Smoker Second Hand Smoke Exposure: No - Caffeine Use Caffeine Use: Reports: Coffee Caffeine Use Comment: drinks about 1-2 cups of coffee per day - Recreational Drug Use Recreational Drug Use: No - Living Situation & Occupation Living situation: Reports: Occupation: Employed ED ROS GENERAL - Review of Systems Review Of Systems: See Below Constitutional: Denies: Fever, Chills HEENT: Denies: Vision Change Respiratory: Denies: Shortness of Breath Cardiovascular: Denies: Chest Pain GI/Abdominal: Reports: Nausea, Vomiting. Denies: Abdominal Pain Musculoskeletal: Reports: Neck Pain Neurological: Reports: Headache (occipital headache). Denies: Confusion, Dizziness, Seizure, Syncope, Trouble Speaking, Gait Disturbance Psychiatric: Denies: Agitation, Anxiety, Confusion ED EXAM, HEAD INJURY - Physical Exam Exam: See Below Exam Limited By: No Limitations General Appearance: Alert, WD/WN, No Apparent Distress Head: Atraumatic, Normocephalic, Scalp Lacerations (scabbed over superficial laceration on R scalp, no active bleeding). No: Santiago's Sign, Facial Lacerations, Raccoon Eyes Nexus Criteria: No: Posterior, Midline Cervical Tenderness, Evidence of Intoxication, Altered Level of Consciousness, Focal Neurological Deficit, Painful Distraction Injuries Eyes: Bilateral Eye: EOMI, Normal Inspection, PERRL Ears: Normal External Exam, Normal Canal, Hearing Grossly Normal, Normal TMs Nose: Normal Inspection Throat/Mouth: Normal Inspection, Normal Lips, Normal Teeth, Normal Gums, Normal Oropharynx, Normal Voice, No Airway Compromise Neck: Non-Tender, Full Range of Motion, Normal Alignment, Normal Inspection Respiratory: No Respiratory Distress, Lungs Clear, Normal Breath Sounds, No Accessory Muscle Use, Chest Non-Tender Cardiovascular: Normal Peripheral Pulses, Regular Rate, Rhythm, No Murmur GI/Abdominal Exam: Normal Bowel Sounds, Soft, Non-Tender, No Distention, No Mass Extremities: Normal Inspection, Normal Capillary Refill Neurologic: No Motor/Sensory Deficits, Alert, Normal Mood/Affect, Oriented x 3 Skin: Normal Color, Warm/Dry - Familia Coma Score Best Eye Response (Fam[place]): (4) Open Spontaneously Best Verbal Response ([place]): (5) Oriented Best Motor Response ([place]): (6) Obeys Commands Familia Total: 15 Course - Vital Signs Last Recorded V/S: Last Vital Signs Temp 97.5 F 08/25/19 14:13 Pulse 81 08/25/19 14:13 Resp 18 08/25/19 14:13 BP 88/59 L 08/25/19 14:13 Pulse Ox 95 08/25/19 14:13 - Orders/Labs/Meds Orders: Active Orders 24 hr Category Date Time Status Head wo Cont [CT] Stat Exams 08/25/19 14:24 Ordered - Re-Assessments/Exams Free Text/Narrative Re-Assessment/Exam: 08/25/19 14:38 Patient presents to the ED for evaluation of a head injury sustained yesterday. The wound on the back of her head is well healed over, there is no active bleeding appreciated at today's exam. Due to the patient's history of a headache after this injury and her age, she will receive a head CT for evaluation, as she states that is why she came to the ER in the first place. I do believe she is clinically suffering from a concussion or postconcussion headache syndrome however. If CT is negative, we will treat her headache and discharge her home. 08/25/19 15:[address] is done, demonstrates no acute bleed or abnormalities. This was reviewed by myself and Dr. Alcala, however official radiology read is pending at this time. The patient was made aware of this, and she states that she would like to go home and does not require any medication management for her headache, I did instruct her on wound care for her head wound, she is understanding of this at this time. She states she has follow-up with a provider tomorrow, and is not requesting anything for nausea at this time. Departure - Departure Time of Disposition: 15:24 Disposition: Home, Self-Care 01 Condition: Fair Clinical Impression: Post-concussion headache Head injury Qualifiers: Encounter type: initial encounter Qualified Code(s): S09.90XA - Unspecified injury of head, initial encounter Laceration of skin of scalp Qualifiers: Encounter type: subsequent encounter Qualified Code(s): S01.01XD - Laceration without foreign body of scalp, subsequent encounter - Discharge Information *PRESCRIPTION DRUG MONITORING PROGRAM REVIEWED*: No *COPY OF PRESCRIPTION DRUG MONITORING REPORT IN PATIENT DAVID: No Instructions: Concussion, Adult, [id number], Laceration Care, Adult, Easy-to- Read Referrals: Shelli Laws NP [Primary Care Provider] - Forms: ED Department Discharge Additional Instructions: You were evaluated in the ED today for your head injury. Your head CT demonstrated no acute bleed or other bony abnormality. You have been clinically diagnosed with a concussion. A concussion can affect how the brain works for a while. It may lead to headaches, changes in alertness, or loss of consciousness. Getting better from a concussion takes days to weeks or even months. You may be irritable, have trouble concentrating, or be unable to remember things. You may also have headaches, dizziness, or blurry vision. These problems will likely recover slowly. You may want to get help from family or friends for making important decisions. You may use acetaminophen (Tylenol) 500mg or 600 mg ibuprofen (Advil/Motrin) Q6H for a headache. You DO NOT need to stay in bed. Light activity around the home is okay. But avoid exercise, lifting weights, or other heavy activity. You may want to keep your diet light if you have nausea and vomiting. Drink fluids to stay hydrated. As long as you have symptoms, avoid sports activities, operating machines, being overly active, doing physical labor. Ask your doctor when you can return to your activities. If symptoms DO NOT go away or are not improving after 2 or 3 weeks, talk to your doctor. Call the doctor if you have: -A stiff neck -Fluid and blood leaking from your nose or ears -A hard time waking up or have become more sleepy -A headache that is getting worse, lasts a long time, or is not relieved by over -the-counter pain relievers -Fever -Vomiting more than 3 times -Problems walking or talking -Changes in speech (slurred, difficult to understand, does not make sense) -Problems thinking straight -Seizures (jerking your arms or legs without control) -Changes in behavior or unusual behavior -Double vision Please return to the ED if your symptoms change or worsen. Sepsis Event Note - Evaluation Sepsis Screening Result: No Definite Risk - Focused Exam Vital Signs: Vital Signs Temp Pulse Resp BP Pulse Ox 08/25/19 14:13 97.5 F 81 18 88/59 L 95 Date Exam was Performed: 08/25/19 Time Exam was Performed: 15:23 - My Orders Last 24 Hours: My Active Orders 08/25/19 14:24 Head wo Cont [CT] Stat - Assessment/Plan Last 24 Hours: My Active Orders 08/25/19 14:24 Head wo Cont [CT] Stat
--- NOTE | 2019-08-25 15:26 | CT ---
Head CT Technique: Multiple axial sections through the brain were obtained. Intravenous contrast was not utilized. Findings: Ventricles along with basal cisterns and sulci over the convexities appear within normal limits for the patient's age. No abnormal parenchymal densities are seen. No evidence of intracranial hemorrhage. No midline shift or mass effect is seen. Bone window settings were reviewed. Mastoid sinuses show nothing acute. Paranasal sinuses also show nothing acute. No acute calvarial finding is seen. Mild soft tissue swelling is seen posteriorly within the scalp. Impression: 1. Mild soft tissue swelling within the posterior scalp. 2. No acute intracranial abnormality is appreciated. Diagnostic code #2 This report was dictated in [place] Standard Time
[2019-08-25 16:02] VITALS: BP 85/75; PULSE 88
== END 2019-08-25 15:35 | disposition home or self-care (01) ==
LOC: JD.ED 14:07
DX: S01.01XD Laceration without foreign body of scalp, subsequent encounter (principal); F07.81 Postconcussional syndrome; Z98.51 Tubal ligation status; W00.0XXD Fall on same level due to ice and snow, subsequent encounter
CPT/HCPCS: 70450; 70450-26; 99284-25

== ENCOUNTER 2022-03-22 10:26 | Day surgery (SDC) | payer BC ==
[~2022-03-22 10:26] MED LIST: Cefuroxime 10 MG/ML SYRINGE EYELF SCH; Lidocaine 1% PF 2 ML SDV INJECT SCH; Pilocarpine 4% Ophth Soln 15 ML Bot EYELF SCH
[2022-03-22] MEDS: Polymyxin B/Trimethoprim 10 ML Bottle EYELF SCH ×3 (10:46→12:27)
[2022-03-22] MEDS: Brimonidine 0.2% Ophth Soln 5 ML Bottle EYELF SCH ×3 (10:51→12:27)
[2022-03-22] MEDS: Phenylephrine 2.5% Ophth Soln 2 ML Bot EYELF SCH ×5 (10:55→12:04)
[2022-03-22] MEDS: Tropicamide 1% Ophth Soln 15 ML Bottle EYELF SCH ×4 (11:01→11:40)
[2022-03-22] MEDS ORDERED: Midazolam 1 MG/ML 2 ML SDV ONE (11:44)
[2022-03-22] MEDS: Tetracaine HCl/PF 0.5% 4 ML Bottle EYEBOTH SCH ×4 (11:52→12:11)
[2022-03-22 13:22] VITALS: BP 67/49; PULSE 81
== END 2022-03-22 12:56 | disposition home or self-care (01) ==
LOC: JD.SDS 10:26
PROVIDERS: ATTEND Ophthalmology
DX: H00-H59 Diseases of the eye and adnexa (principal); H16.103 Unspecified superficial keratitis, bilateral; H35.3131 Nonexudative age-related macular degeneration, bilateral, early dry stage; H16.4 Corneal neovascularization; H25.812 Combined forms of age-related cataract, left eye; H16.223 Keratoconjunctivitis sicca, not specified as Sjogren's, bilateral; I95.9 Hypotension, unspecified; E05.90 Thyrotoxicosis, unspecified without thyrotoxic crisis or storm; K21.9 Gastro-esophageal reflux disease without esophagitis; F41.9 Anxiety disorder, unspecified; F32.A Depression, unspecified; Z96.1 Presence of intraocular lens; Z79.899 Other long term (current) drug therapy; Z98.890 Other specified postprocedural states; Z79.890 Hormone replacement therapy
CPT/HCPCS: 66984; J0697; J2250; C1780

== ENCOUNTER 2022-05-05 12:23 | Inpatient (IN) | payer BC ==
[2022-05-05] MEDS ORDERED: Sodium Chloride 0.9% 1,000 ML IV ONE ×2 (12:50)
[2022-05-05] MEDS ORDERED: Sodium Chloride 0.9% 1,000 ML IV SCH ×2 (13:58→21:45)
[2022-05-05] MEDS ORDERED: Meropenem 1 GM in Sodium Chloride 0.9% 100 ML IV ONE (15:12)
[2022-05-05] MEDS ORDERED: Potassium Chloride 10 MEQ in Premix Bag 1 BAG IV ONE (15:39)
[2022-05-05] MEDS ORDERED: Ondansetron 4 MG/2 ML SDV IVPUSH ONE (18:58)
[2022-05-05] MEDS ORDERED: Ondansetron 4 MG/2 ML SDV IVPUSH PRN (21:37)
[2022-05-05] MEDS ORDERED: Piperacillin/Tazobactam 3.375 GM in Sodium Chloride 0.9% 100 ML IV SCH (21:45)
[2022-05-05] MEDS ORDERED: Insulin Lispro 100 Unit/ML 3 ML KwikPen SUBCUT SCH (21:45)
[2022-05-05] MEDS ORDERED: Sodium Bicarbonate 150 MEQ in Dextrose 5% in Water 1,000 ML IV ONE ×2 (22:28)
[2022-05-05] MEDS: Sodium Chloride 0.9% 1,000 ML IV SCH (22:46)
[2022-05-05] MEDS: Potassium Chloride 10 MEQ in Premix Bag 1 BAG IV SCH ×2 (22:59→23:59)
[2022-05-05] MEDS: HYDROmorphone 0.5 MG/0.5 ML Syringe IVPUSH PRN (23:08)
[2022-05-06] MEDS: Potassium Chloride 10 MEQ in Premix Bag 1 BAG IV SCH ×2 (00:59→01:59)
[2022-05-06] MEDS ORDERED: Piperacillin/Tazobactam 4.5 GM in Sodium Chloride 0.9% 100 ML IV SCH (02:45)
[2022-05-06] MEDS: Piperacillin/Tazobactam 4.5 GM in Sodium Chloride 0.9% 100 ML IV SCH ×2 (05:03→17:26)
[2022-05-06] MEDS ORDERED: Insulin Lispro 100 Unit/ML 3 ML KwikPen SUBCUT SCH (06:00)
[2022-05-06] MEDS: Pantoprazole 40 MG Vial IV SCH ×2 (08:06→20:03)
[2022-05-06] MEDS: HYDROmorphone 0.5 MG/0.5 ML Syringe IVPUSH PRN ×2 (08:10→23:09)
[2022-05-06] MEDS ORDERED: Levothyroxine 50 MCG Tab PO SCH (09:15)
[2022-05-06] MEDS: Sodium Bicarbonate 650 MG Tab PO SCH ×3 (12:04→20:02)
[2022-05-06] MEDS: Sodium Chloride 0.9% 1,000 ML IV SCH (12:06)
[2022-05-06] MEDS ORDERED: Sodium Chloride 0.9% 0 ML ONE (17:23)
[2022-05-06 21:39] VITALS: PULSE 82
[2022-05-07 00:15] VITALS: BP 88/57
[2022-05-07] MEDS ORDERED: Piperacillin/Tazobactam 4.5 GM in Sodium Chloride 0.9% 100 ML IV ONE (05:00)
[2022-05-07] MEDS ORDERED: Sodium Bicarbonate 650 MG Tab ONE ×4 (09:00)
[2022-05-07] MEDS ORDERED: Pantoprazole 40 MG Vial ONE ×2 (09:00)
[2022-05-07] MEDS ORDERED: Potassium Chloride 20 MEQ Tab.ER ONE ×4 (09:00→20:06)
[2022-05-07] MEDS ORDERED: Levothyroxine 50 MCG Tab ONE (09:00)
[2022-05-07] MEDS ORDERED: Magnesium Sulfate/Water 50 ML ONE (15:21)
[2022-05-07] MEDS ORDERED: Magnesium Sulfate/Water 2 GM in Premix Bag 1 BAG IV ONE (15:30)
[2022-05-08] MEDS ORDERED: Potassium Chloride 20 MEQ Tab.ER ONE (08:55)
[2022-05-08] MEDS ORDERED: Levothyroxine 50 MCG Tab ONE (09:00)
[2022-05-08] MEDS ORDERED: Pantoprazole 40 MG Vial ONE ×2 (09:00)
[2022-05-08] MEDS ORDERED: Sodium Bicarbonate 650 MG Tab ONE ×4 (09:00)
[2022-05-08] MEDS ORDERED: Magnesium Sulfate/Water 50 ML ONE (10:24)
[2022-05-09] MEDS ORDERED: Levothyroxine 50 MCG Tab PO ONE (06:00)
[2022-05-09] MEDS ORDERED: Pantoprazole 40 MG Tab.CR ONE (08:35)
[2022-05-09] MEDS ORDERED: Pantoprazole 40 MG Tab.CR PO ONE (09:00)
[2022-05-09] MEDS ORDERED: Sodium Bicarbonate 650 MG Tab PO ONE (09:00)
[2022-05-09] MEDS ORDERED: Potassium Chloride 20 MEQ Tab.ER PO ONE (09:00)
[2022-05-09] MEDS ORDERED: Potassium Chloride 20 MEQ Tab.ER ONE (10:05)
== END 2022-05-09 10:13 | disposition home or self-care (01) | DRG 720 ==
LOC: JD.ED 12:23 → SUPCPDRO 12:23 → JD.ICU 21:31 → JD.ZCENSUS 05-07 12:34
PROVIDERS: ADMIT Hospitalist; ATTEND Hospitalist
DX: A41.9 Sepsis, unspecified organism (principal); R65.20 Severe sepsis without septic shock; K21.9 Gastro-esophageal reflux disease without esophagitis; F41.9 Anxiety disorder, unspecified; F32.A Depression, unspecified; E03.9 Hypothyroidism, unspecified; E55.9 Vitamin D deficiency, unspecified; Z20.822 Contact with and (suspected) exposure to COVID-19; R32 Unspecified urinary incontinence; N17.9 Acute kidney failure, unspecified; E87.20 Acidosis, unspecified; E87.6 Hypokalemia; E87.1 Hypo-osmolality and hyponatremia; H54.7 Unspecified visual loss; E86.0 Dehydration; Z79.890 Hormone replacement therapy; Z79.899 Other long term (current) drug therapy; Z98.49 Cataract extraction status, unspecified eye; Z87.440 Personal history of urinary (tract) infections; I25.2 Old myocardial infarction
CPT/HCPCS: 36415; 36600; 70450; 70450-26; 71045; 71045-26; 71250; 71250-26; 74176; 74176-26; 76705; 76705-26; 80048; 80053; 80306; 81001; 82803; 82947; 83605; 83690; 83735; 84484; 85007; 85025; 85027; 85610; 85730; 86140; 87040; 93005; 96361; 96365; 96367; 96368; 96375; 99222; 99232; 99238; 99285-25; A9270-GY; C9113; J1170; J2185; J2405; J2543; J3370; J3475; J3480; J7030; J7050; J7060; U0002

== ENCOUNTER 2022-05-14 13:52 | Emergency (ER) | payer BC ==
[2022-05-14] MEDS ORDERED: Calcium Gluconate 10% 1 GM/10 ML SDV IVPUSH ONE (15:42)
[2022-05-14] MEDS ORDERED: Sodium Bicarbonate 8.4% 50 MEQ/50 ML Syringe IVPUSH ONE (15:43)
[2022-05-14] MEDS ORDERED: Insulin Regular, Human 100 Units/ML 3 ML Vial IV ONE (15:45)
[2022-05-14] MEDS ORDERED: 50% Dextrose in Water 50 ML Syringe IVPUSH ONE (15:47)
[2022-05-14] MEDS ORDERED: Furosemide 40 MG/4 ML VIAL IVPUSH ONE (17:30)
[2022-05-14] MEDS ORDERED: 50% Dextrose in Water 50 ML Syringe IVPUSH STA (17:56)
[2022-05-14] MEDS ORDERED: 50% Dextrose in Water 50 ML Syringe ONE (18:00)
[2022-05-14 18:46] VITALS: BP 89/69; PULSE 82
== END 2022-05-14 21:30 | disposition home or self-care (01) ==
LOC: JD.ED 13:52
DX: E87.5 Hyperkalemia (principal); I25.2 Old myocardial infarction; Z79.899 Other long term (current) drug therapy
CPT/HCPCS: 36415; 80048; 81003; 82947; 83735; 84132; 93005; 96374; 96375; 96376; 99285; J0610; J1815; J1940

== ENCOUNTER 2022-07-15 09:24 | Emergency (ER) | payer BC ==
[2022-07-15] MEDS ORDERED: Sodium Chloride 0.9% 1,000 ML IV SCH (12:30)
[2022-07-15] MEDS ORDERED: Potassium Chloride 20 MEQ Tab.ER PO ONE (13:44)
[2022-07-15 15:30] VITALS: BP 107/63; PULSE 82
== END 2022-07-15 15:20 | disposition home or self-care (01) ==
LOC: JD.ED 09:24
DX: E86.0 Dehydration (principal); E87.1 Hypo-osmolality and hyponatremia; E87.6 Hypokalemia; I25.2 Old myocardial infarction; N18.9 Chronic kidney disease, unspecified; E03.9 Hypothyroidism, unspecified; Z79.899 Other long term (current) drug therapy
CPT/HCPCS: 36415; 80053; 83735; 85025; 96360; 96361; 99284; A9270; J7030

== ENCOUNTER 2022-09-19 09:33 | Emergency (ER) | payer BC ==
[2022-09-19] MEDS ORDERED: Potassium Chloride 100 ML ONE (09:57)
[2022-09-19] MEDS ORDERED: Dextrose 5%-Lactated Ringers 1,000 ML IV SCH ×2 (10:00→12:00)
[2022-09-19] MEDS: Potassium Chloride 10 MEQ in Premix Bag 1 BAG IV SCH ×2 (10:01→11:11)
[2022-09-19] MEDS ORDERED: Metoclopramide 10 MG/2 ML SDV IVPUSH ONE (10:32)
[2022-09-19] MEDS: Sodium Chloride 0.9% 1,000 ML IV SCH ×2 (12:04→13:43)
[2022-09-19 16:34] VITALS: BP 96/62; PULSE 96
== END 2022-09-19 16:28 | disposition home or self-care (01) ==
LOC: JD.ED 09:33
DX: I95.89 Other hypotension (principal); R11.2 Nausea with vomiting, unspecified; E87.1 Hypo-osmolality and hyponatremia; R62.7 Adult failure to thrive; I25.2 Old myocardial infarction; K21.9 Gastro-esophageal reflux disease without esophagitis; N18.9 Chronic kidney disease, unspecified; E03.9 Hypothyroidism, unspecified; Z79.899 Other long term (current) drug therapy; Z68.1 Body mass index [BMI] 19.9 or less, adult
CPT/HCPCS: 36415; 80053; 81001; 82009; 82977; 83605; 83690; 84443; 85025; 85610; 85730; 86140; 93005; 96361; 96365; 96366; 96375; 99285-25; J2765; J3480; J7030; J7121

== ENCOUNTER 2024-04-13 18:27 | Emergency (ER) | payer BC ==
[2024-04-13] MEDS: Ondansetron 4 MG/2 ML SDV IVPUSH ONE (19:39)
[2024-04-13] MEDS: Sodium Chloride 0.9% 500 ML IV ONE (19:39)
[2024-04-13 19:43] LABS: APPEARANCE,URINE CLEAR (Clear); BILIRUBIN,URINE NEGATIVE (Negative); COLOR,URINE YELLOW (Yellow); GLUCOSE,URINE NEGATIVE (Negative); KETONES,URINE NEGATIVE (Negative); LEUKOCYTE ESTERASE,URINE 1+ (Negative); NITRITE,URINE NEGATIVE (Negative); OCCULT BLOOD,URINE TRACE-LYSED (Negative); PH,URINE 5.5 (5.0-8.0); PROTEIN,URINE 1+ (Negative); UROBILINOGEN,URINE 0.2 (0.2-1.0)
[2024-04-13 19:49] LABS: BASOPHILS PERCENT AUTO 0.2 % (0.0-1.0); EOSINOPHILS PERCENT AUTO 0.1 % (0.0-6.0); HEMOGLOBIN 13.9 gm/dl (12.0-16.0); IMMATURE GRAN ABSOLUTE AUTO 0.04 K/mm3 (0.00-0.05); IMMATURE GRAN PERCENT AUTO 0.3 % (0.0-0.4); LYMPHOCYTES ABSOLUTE AUTO 1.4 K/mm3 (1.0-4.8); LYMPHOCYTES PERCENT AUTO 9.1 % (24.0-44.0); MEAN CORPUSCULAR HEMOGLOBIN 29.3 pg (28.0-32.0); MEAN CORPUSCULAR HGB CONC 32.3 g/dl (32.0-36.0); MEAN CORPUSCULAR VOLUME 90.5 fl (83.0-99.0); MEAN PLATELET VOLUME 8.8 fl (9.4-12.3); MONOCYTES ABSOLUTE AUTO 1.9 K/mm3 (0.0-0.8); NEUTROPHILS ABSOLUTE AUTO 11.5 K/mm3 (1.8-7.7); NEUTROPHILS PERCENT AUTO 77.3 % (41.0-71.0); PLATELET COUNT,PLT 274 K/mm3 (150-400); RED BLOOD CELL COUNT 4.75 M/mm3 (4.10-5.30); WHITE BLOOD CELL COUNT,WBC 14.83 K/mm3 (3.9-11.3)
[2024-04-13 20:08] LABS: BACTERIA,URINE MODERATE /hpf (FEW); MUCUS,URINE FEW /hpf (FEW)
[2024-04-13 20:11] LABS: A/G RATIO 0.9 (1-2); ALBUMIN 2.2 g/dl (3.4-5.0); ANION GAP 17.4 (5-15); BILIRUBIN TOTAL 0.4 mg/dL (0.2-1.0); BUN/CREATININE RATIO 15.2 (14-18); CALCIUM 7.8 mg/dL (8.5-10.1); CREATININE 2.5 mg/dL (0.55-1.02); EST CRCL DRUG DOSING (CG) 13.77 mL/min; POTASSIUM,K 4.4 mEq/L (3.5-5.1); PROTEIN TOTAL,TP 4.8 g/dl (6.4-8.2)
[2024-04-13] MEDS: Sodium Chloride 0.9% 1,000 ML IV ONE (20:56)
[2024-04-13] MEDS: cefTRIAXone 1 GM in Sodium Chloride 0.9% 100 ML IV ONE (20:56)
[2024-04-14 01:13] VITALS: BP 104/58; PULSE 106
== END 2024-04-14 | disposition home or self-care (01) ==
LOC: JD.ED 18:27
DX: A41.9 Sepsis, unspecified organism (principal); N30.01 Acute cystitis with hematuria; E87.20 Acidosis, unspecified; I25.2 Old myocardial infarction; K21.9 Gastro-esophageal reflux disease without esophagitis; N18.9 Chronic kidney disease, unspecified; E03.9 Hypothyroidism, unspecified; Z79.899 Other long term (current) drug therapy
CPT/HCPCS: 36415; 80053; 81001; 83605; 85025; 87040; 96361; 96365; 96375; 99283; J0696; J2405; J3490; J7030; 99284

== ENCOUNTER 2024-06-21 09:26 | Inpatient (IN) | payer BC ==
[2024-06-21] MEDS: Sodium Chloride 0.9% 1,000 ML IV ONE (09:54)
[2024-06-21] MEDS: Sodium Chloride 0.9% 10 ML Syringe FLUSH PRN (09:55)
[2024-06-21 10:27] LABS: APPEARANCE,URINE CLEAR (Clear); BILIRUBIN,URINE NEGATIVE (Negative); COLOR,URINE YELLOW (Yellow); GLUCOSE,URINE NEGATIVE (Negative); KETONES,URINE NEGATIVE (Negative); LEUKOCYTE ESTERASE,URINE 1+ (Negative); NITRITE,URINE NEGATIVE (Negative); OCCULT BLOOD,URINE TRACE-INTACT (Negative); PH,URINE 5.5 (5.0-8.0); PROTEIN,URINE 1+ (Negative); UROBILINOGEN,URINE 0.2 (0.2-1.0)
[2024-06-21 10:52] LABS: BASOPHILS ABSOLUTE AUTO 0.1 K/mm3 (0.0-0.2); BASOPHILS PERCENT AUTO 0.1 % (0.0-1.0); EOSINOPHILS ABSOLUTE AUTO 0.1 K/mm3 (0.0-0.4); EOSINOPHILS PERCENT AUTO 0.2 % (0.0-6.0); HEMATOCRIT 44.6 % (37.0-47.0); HEMOGLOBIN 14.5 gm/dl (12.0-16.0); IMMATURE GRAN ABSOLUTE AUTO 0.75 K/mm3 (0.00-0.05); IMMATURE GRAN PERCENT AUTO 1.7 % (0.0-0.4); LYMPHOCYTES ABSOLUTE AUTO 1.6 K/mm3 (1.0-4.8); LYMPHOCYTES PERCENT AUTO 3.7 % (24.0-44.0); MEAN CORPUSCULAR HEMOGLOBIN 27.5 pg (28.0-32.0); MEAN CORPUSCULAR HGB CONC 32.5 g/dl (32.0-36.0); MEAN CORPUSCULAR VOLUME 84.6 fl (83.0-99.0); MONOCYTES ABSOLUTE AUTO 3.9 K/mm3 (0.0-0.8); NEUTROPHILS ABSOLUTE AUTO 36.8 K/mm3 (1.8-7.7); NEUTROPHILS PERCENT AUTO 85.3 % (41.0-71.0); PLATELET COUNT,PLT 474 K/mm3 (150-400); RED BLOOD CELL COUNT 5.27 M/mm3 (4.10-5.30); WHITE BLOOD CELL COUNT,WBC 43.18 K/mm3 (3.9-11.3)
[2024-06-21 11:01] LABS: CORONAVIRUS COVID-19 NAA NEGATIVE (NEGATIVE); INFLUENZA A NAA NEGATIVE (NEGATIVE); RESPIRATORY SYNCYTIAL VIR NAA NEGATIVE (NEGATIVE)
[2024-06-21] MEDS: Sodium Chloride 0.9% 500 ML IV ONE ×2 (11:05→19:57)
[2024-06-21 11:51] LABS: A/G RATIO 0.8 (1-2); ALBUMIN 2.3 g/dl (3.4-5.0); ANION GAP 25.7 (5-15); BILIRUBIN TOTAL 0.5 mg/dL (0.2-1.0); BUN/CREATININE RATIO 19.3 (14-18); CALCIUM 7.5 mg/dL (8.5-10.1); CREATININE 2.8 mg/dL (0.55-1.02); MAGNESIUM 2.2 mg/dL (1.8-2.4); POTASSIUM,K 3.7 mEq/L (3.5-5.1); PROTEIN TOTAL,TP 5.1 g/dl (6.4-8.2); TSH 28.862 uIU/mL (0.358-3.74)
[2024-06-21 12:00] LABS: LACTIC ACID 7.7 mmol/L (0.4-2.0)
[2024-06-21 12:05] LABS: BACTERIA,URINE MODERATE /hpf (FEW); EPITHELIAL CELLS,URINE 0-5 /hpf (0-5); MUCUS,URINE FEW /hpf (FEW); RBC,URINE 0-5 /hpf (0-5); WBC,URINE 0-5 /hpf (0-5)
[2024-06-21 12:21] LABS: T4 FREE 1.08 ng/dL (0.76-1.46)
[2024-06-21] MEDS: Piperacillin/Tazobactam 4.5 GM in Sodium Chloride 0.9% 100 ML IV ONE (12:47)
[2024-06-21] MEDS: Ondansetron 4 MG/2 ML SDV IVPUSH ONE (13:50)
[2024-06-21] MEDS ORDERED: Acetaminophen 325 MG Tab PO PRN (14:16)
[2024-06-21] MEDS: Linezolid 600 MG/300 ML 600 MG in Premix Bag 1 BAG IV SCH (14:21)
[2024-06-21] MEDS: Ondansetron 4 MG/2 ML SDV IV PRN (16:15)
[2024-06-21] MEDS: Hydrocortisone Sodium Succinate 100 MG/2 ML SDV IVPUSH SCH (16:19)
[2024-06-21] MEDS: Sodium Chloride 0.9% 1,000 ML IV SCH (16:24)
[2024-06-21 17:24] LABS: ANION GAP 22.7 (5-15); BUN/CREATININE RATIO 20.4 (14-18); CALCIUM 7.2 mg/dL (8.5-10.1); CREATININE 2.8 mg/dL (0.55-1.02); POTASSIUM,K 3.7 mEq/L (3.5-5.1)
[2024-06-21 18:13] LABS: SODIUM,URINE RANDOM 5 mEq/L (40-220)
[2024-06-21 18:55] LABS: OSMOLALITY,URINE 267 mosm/kg (400-1100)
[2024-06-21] MEDS: Promethazine 25 MG Tab PO PRN (20:36)
[2024-06-22 05:31] LABS: BASOPHILS ABSOLUTE AUTO 0.1 K/mm3 (0.0-0.2); BASOPHILS PERCENT AUTO 0.3 % (0.0-1.0); EOSINOPHILS ABSOLUTE AUTO 0.1 K/mm3 (0.0-0.4); EOSINOPHILS PERCENT AUTO 0.4 % (0.0-6.0); HEMATOCRIT 35.6 % (37.0-47.0); IMMATURE GRAN ABSOLUTE AUTO 0.64 K/mm3 (0.00-0.05); IMMATURE GRAN PERCENT AUTO 1.8 % (0.0-0.4); LYMPHOCYTES PERCENT AUTO 2.8 % (24.0-44.0); MEAN CORPUSCULAR HEMOGLOBIN 27.8 pg (28.0-32.0); MEAN CORPUSCULAR VOLUME 81.8 fl (83.0-99.0); MEAN PLATELET VOLUME 8.8 fl (9.4-12.3); MONOCYTES ABSOLUTE AUTO 1.6 K/mm3 (0.0-0.8); MONOCYTES PERCENT AUTO 4.5 % (0.0-8.0); NEUTROPHILS ABSOLUTE AUTO 32.4 K/mm3 (1.8-7.7); NEUTROPHILS PERCENT AUTO 90.2 % (41.0-71.0); RED BLOOD CELL COUNT 4.35 M/mm3 (4.10-5.30); WHITE BLOOD CELL COUNT,WBC 35.88 K/mm3 (3.9-11.3)
[2024-06-22 05:32] LABS: HEMOGLOBIN 12.1 gm/dl (12.0-16.0); PLATELET COUNT,PLT 366 K/mm3 (150-400)
[2024-06-22 05:48] LABS: A/G RATIO 0.7 (1-2); ALBUMIN 1.9 g/dl (3.4-5.0); ANION GAP 21.3 (5-15); BILIRUBIN TOTAL 0.3 mg/dL (0.2-1.0); BUN/CREATININE RATIO 18.3 (14-18); C-REACTIVE PROTEIN 10.52 mg/dL (<0.30); CALCIUM 6.3 mg/dL (8.5-10.1); CREATININE 2.4 mg/dL (0.55-1.02); EST CRCL DRUG DOSING (CG) 13.57 mL/min; POTASSIUM,K 3.3 mEq/L (3.5-5.1); PROTEIN TOTAL,TP 4.8 g/dl (6.4-8.2)
[2024-06-22 06:01] LABS: SLIDE REVIEW ABNORMAL SMEAR
[2024-06-22] MEDS: Levothyroxine 75 MCG Tab PO SCH (07:15)
[2024-06-22] MEDS: Insulin Lispro 100 Unit/ML 3 ML KwikPen SUBCUT SCH (08:22)
[2024-06-22] MEDS ORDERED: Hydrocortisone Sodium Succinate 100 MG/2 ML SDV IVPUSH SCH (09:30)
[2024-06-22] MEDS: Potassium Chloride 20 MEQ Tab.ER PO ONE (10:20)
[2024-06-22] MEDS: Midodrine 5 MG Tab PO SCH (10:23)
[2024-06-22] MEDS: Azithromycin 250 MG Tab PO SCH (10:27)
[2024-06-22] MEDS: Calcium Gluconate 10% 1 GM/10 ML SDV IV ONE (10:28)
[2024-06-22] MEDS: Piperacillin/Tazobactam 4.5 GM in Sodium Chloride 0.9% 100 ML IV ONE (10:52)
[2024-06-22 10:56] LABS: FOLIC ACID 36.1 ng/mL (8.6-58.9)
[2024-06-22] MEDS: Heparin Sodium 5,000 Units/ML Vial SUBCUT SCH (13:48)
[2024-06-22] MEDS: VANCOmycin 500 MG/100 ML 500 MG in Premix Bag 1 BAG IV ONE (13:48)
[2024-06-22] MEDS: Cholecalciferol (Vitamin D3) 5,000 UNIT Cap PO SCH (13:48)
[2024-06-22] MEDS ORDERED: LORazepam 2 MG/ML SDV IVPUSH PRN ×2 (14:04→14:06)
[2024-06-22] MEDS: LORazepam 0.5 MG Tab PO PRN (16:58)
[2024-06-22] MEDS ORDERED: LORazepam 0.5 MG Tab PO PRN (18:00)
[2024-06-22] MEDS ORDERED: Albuterol 6.7 GM Inhaler INH PRN (18:10)
[2024-06-22] MEDS ORDERED: Dexamethasone 4 MG/ML SDV IVPUSH PRN (19:15)
[2024-06-22] MEDS: Sodium Bicarbonate 650 MG Tab PO SCH (21:08)
[2024-06-22] MEDS: Piperacillin/Tazobactam 4.5 GM in Sodium Chloride 0.9% 100 ML IV SCH (21:09)
[2024-06-23] MEDS: LORazepam 0.5 MG Tab PO ONE (02:51)
[2024-06-23] MEDS ORDERED: Levothyroxine 25 MCG Tab PO SCH (06:00)
[2024-06-23] MEDS: Levothyroxine 75 MCG Tab PO SCH (06:03)
[2024-06-23 06:53] LABS: BASOPHILS PERCENT AUTO 0.3 % (0.0-1.0); EOSINOPHILS ABSOLUTE AUTO 0.1 K/mm3 (0.0-0.4); EOSINOPHILS PERCENT AUTO 0.5 % (0.0-6.0); HEMATOCRIT 28.4 % (37.0-47.0); IMMATURE GRAN ABSOLUTE AUTO 0.23 K/mm3 (0.00-0.05); IMMATURE GRAN PERCENT AUTO 1.5 % (0.0-0.4); LYMPHOCYTES ABSOLUTE AUTO 2.6 K/mm3 (1.0-4.8); LYMPHOCYTES PERCENT AUTO 16.9 % (24.0-44.0); MEAN CORPUSCULAR HEMOGLOBIN 27.4 pg (28.0-32.0); MEAN CORPUSCULAR HGB CONC 33.8 g/dl (32.0-36.0); MEAN CORPUSCULAR VOLUME 80.9 fl (83.0-99.0); MEAN PLATELET VOLUME 9.1 fl (9.4-12.3); MONOCYTES ABSOLUTE AUTO 1.1 K/mm3 (0.0-0.8); MONOCYTES PERCENT AUTO 7.2 % (0.0-8.0); NEUTROPHILS ABSOLUTE AUTO 11.4 K/mm3 (1.8-7.7); NEUTROPHILS PERCENT AUTO 73.6 % (41.0-71.0); RED BLOOD CELL COUNT 3.51 M/mm3 (4.10-5.30); WHITE BLOOD CELL COUNT,WBC 15.43 K/mm3 (3.9-11.3)
[2024-06-23] MEDS ORDERED: Fludrocortisone 0.1 MG Tab PO SCH (07:00)
[2024-06-23 07:01] LABS: HEMOGLOBIN 9.6 gm/dl (12.0-16.0); PLATELET COUNT,PLT 272 K/mm3 (150-400)
[2024-06-23 07:26] LABS: A/G RATIO 0.6 (1-2); ALBUMIN 1.6 g/dl (3.4-5.0); ANION GAP 17.3 (5-15); BILIRUBIN TOTAL 0.3 mg/dL (0.2-1.0); BUN/CREATININE RATIO 18.1 (14-18); C-REACTIVE PROTEIN 3.45 mg/dL (<0.30); CALCIUM 6.9 mg/dL (8.5-10.1); CREATININE 2.1 mg/dL (0.55-1.02); MAGNESIUM 2.1 mg/dL (1.8-2.4); PHOSPHORUS 3.5 mg/dL (2.6-4.7); PROTEIN TOTAL,TP 4.1 g/dl (6.4-8.2); TSH 2.79 uIU/mL (0.358-3.74); VANCOMYCIN RANDOM 7.3 ug/mL
[2024-06-23 07:27] LABS: POTASSIUM,K 2.3 mEq/L (3.5-5.1)
[2024-06-23] MEDS: LORazepam 2 MG/ML SDV IVPUSH PRN (07:59)
[2024-06-23] MEDS: Potassium Chloride 20 MEQ Tab.ER PO ONE (08:07)
[2024-06-23] MEDS: Potassium Chloride 10 MEQ in Premix Bag 1 BAG IV SCH (08:09)
[2024-06-23] MEDS: Calcium Gluconate 10% 1 GM/10 ML SDV IV ONE (10:16)
[2024-06-23] MEDS: Midodrine 5 MG Tab PO SCH (10:28)
[2024-06-23] MEDS: VANCOmycin 500 MG/100 ML 500 MG in Premix Bag 1 BAG IV ONE (14:25)
[2024-06-23] MEDS ORDERED: LORazepam 2 MG/ML SDV IVPUSH PRN (17:39)
[2024-06-23 18:12] LABS: ANION GAP 16.8 (5-15); BUN/CREATININE RATIO 17.4 (14-18); CALCIUM 6.8 mg/dL (8.5-10.1); CREATININE 1.9 mg/dL (0.55-1.02); EST CRCL DRUG DOSING (CG) 17.69 mL/min
[2024-06-23 18:27] LABS: POTASSIUM,K 3.8 mEq/L (3.5-5.1)
[2024-06-23] MEDS: Prochlorperazine 5 MG Tab PO PRN (21:06)
[2024-06-23] MEDS: Insulin Lispro 100 Unit/ML 3 ML KwikPen SUBCUT SCH (22:26)
[2024-06-24 06:49] LABS: BASOPHILS ABSOLUTE AUTO 0.1 K/mm3 (0.0-0.2); BASOPHILS PERCENT AUTO 0.4 % (0.0-1.0); EOSINOPHILS ABSOLUTE AUTO 0.3 K/mm3 (0.0-0.4); EOSINOPHILS PERCENT AUTO 1.8 % (0.0-6.0); HEMATOCRIT 30.9 % (37.0-47.0); HEMOGLOBIN 10.3 gm/dl (12.0-16.0); IMMATURE GRAN ABSOLUTE AUTO 0.22 K/mm3 (0.00-0.05); IMMATURE GRAN PERCENT AUTO 1.5 % (0.0-0.4); LYMPHOCYTES ABSOLUTE AUTO 2.9 K/mm3 (1.0-4.8); LYMPHOCYTES PERCENT AUTO 20.2 % (24.0-44.0); MEAN CORPUSCULAR HEMOGLOBIN 27.2 pg (28.0-32.0); MEAN CORPUSCULAR HGB CONC 33.3 g/dl (32.0-36.0); MEAN CORPUSCULAR VOLUME 81.5 fl (83.0-99.0); MEAN PLATELET VOLUME 9.2 fl (9.4-12.3); MONOCYTES ABSOLUTE AUTO 0.7 K/mm3 (0.0-0.8); MONOCYTES PERCENT AUTO 4.8 % (0.0-8.0); NEUTROPHILS ABSOLUTE AUTO 10.3 K/mm3 (1.8-7.7); NEUTROPHILS PERCENT AUTO 71.3 % (41.0-71.0); PLATELET COUNT,PLT 296 K/mm3 (150-400); RED BLOOD CELL COUNT 3.79 M/mm3 (4.10-5.30); WHITE BLOOD CELL COUNT,WBC 14.39 K/mm3 (3.9-11.3)
[2024-06-24 07:20] LABS: A/G RATIO 0.6 (1-2); ALBUMIN 1.7 g/dl (3.4-5.0); ANION GAP 19.4 (5-15); BILIRUBIN TOTAL 0.3 mg/dL (0.2-1.0); BUN/CREATININE RATIO 16.1 (14-18); C-REACTIVE PROTEIN 1.12 mg/dL (<0.30); CALCIUM 7.7 mg/dL (8.5-10.1); CREATININE 1.8 mg/dL (0.55-1.02); EST CRCL DRUG DOSING (CG) 18.88 mL/min; PROTEIN TOTAL,TP 4.5 g/dl (6.4-8.2); VANCOMYCIN RANDOM 12.5 ug/mL
[2024-06-24 07:34] LABS: POTASSIUM,K 2.4 mEq/L (3.5-5.1)
[2024-06-24] MEDS: Potassium Chloride 20 MEQ Tab.ER PO ONE (09:07)
[2024-06-24] MEDS: Potassium Chloride 10 MEQ in Premix Bag 1 BAG IV SCH (09:09)
[2024-06-24] MEDS: Citalopram 20 MG Tab PO SCH (09:09)
[2024-06-24] MEDS: VANCOmycin 500 MG/100 ML 500 MG in Premix Bag 1 BAG IV SCH (14:03)
[2024-06-24 18:33] LABS: ANION GAP 16.9 (5-15); BUN/CREATININE RATIO 13.3 (14-18); CALCIUM 8.2 mg/dL (8.5-10.1); CREATININE 1.8 mg/dL (0.55-1.02); EST CRCL DRUG DOSING (CG) 18.88 mL/min
[2024-06-24 18:39] LABS: POTASSIUM,K 3.9 mEq/L (3.5-5.1)
[2024-06-25 04:38] LABS: BASOPHILS ABSOLUTE AUTO 0.1 K/mm3 (0.0-0.2); BASOPHILS PERCENT AUTO 0.8 % (0.0-1.0); EOSINOPHILS ABSOLUTE AUTO 0.6 K/mm3 (0.0-0.4); EOSINOPHILS PERCENT AUTO 5.1 % (0.0-6.0); HEMATOCRIT 31.8 % (37.0-47.0); HEMOGLOBIN 10.5 gm/dl (12.0-16.0); IMMATURE GRAN ABSOLUTE AUTO 0.28 K/mm3 (0.00-0.05); IMMATURE GRAN PERCENT AUTO 2.4 % (0.0-0.4); LYMPHOCYTES ABSOLUTE AUTO 3.8 K/mm3 (1.0-4.8); LYMPHOCYTES PERCENT AUTO 31.7 % (24.0-44.0); MEAN CORPUSCULAR HEMOGLOBIN 27.5 pg (28.0-32.0); MEAN CORPUSCULAR VOLUME 83.2 fl (83.0-99.0); MEAN PLATELET VOLUME 8.8 fl (9.4-12.3); MONOCYTES ABSOLUTE AUTO 0.8 K/mm3 (0.0-0.8); NEUTROPHILS ABSOLUTE AUTO 6.3 K/mm3 (1.8-7.7); PLATELET COUNT,PLT 285 K/mm3 (150-400); RED BLOOD CELL COUNT 3.82 M/mm3 (4.10-5.30); WHITE BLOOD CELL COUNT,WBC 11.85 K/mm3 (3.9-11.3)
[2024-06-25 05:08] LABS: A/G RATIO 0.7 (1-2); ALBUMIN 1.9 g/dl (3.4-5.0); ANION GAP 14.3 (5-15); BILIRUBIN TOTAL 0.3 mg/dL (0.2-1.0); BUN/CREATININE RATIO 12.2 (14-18); C-REACTIVE PROTEIN 0.52 mg/dL (<0.30); CALCIUM 8.1 mg/dL (8.5-10.1); CREATININE 1.8 mg/dL (0.55-1.02); EST CRCL DRUG DOSING (CG) 17.98 mL/min; MAGNESIUM 1.9 mg/dL (1.8-2.4); PHOSPHORUS 4.5 mg/dL (2.6-4.7); POTASSIUM,K 3.3 mEq/L (3.5-5.1); PROTEIN TOTAL,TP 4.8 g/dl (6.4-8.2)
[2024-06-25] MEDS ORDERED: Magnesium Sulfate (4.06 MEQ/ML) 5 GM/10 ML SDV IV STA (08:56)
[2024-06-25] MEDS: Potassium Chloride 20 MEQ Tab.ER PO ONE (09:52)
[2024-06-25 13:03] VITALS: BP 103/67; PULSE 74
[2024-06-26 07:41] LABS: ACTH 13.9 pg/mL (7.2-63.3)
[2024-06-27 09:46] LABS: VITAMIN B1, WHOLE BLOOD 132 nmol/L (70-180)
== END 2024-06-25 13:50 | disposition home or self-care (01) | DRG 206 ==
LOC: JD.ED 09:26 → UNDOADMIN 14:16 → JD.ICU 14:16
PROVIDERS: ADMIT Family Medicine; ATTEND Student in an Organized Health Care Education/Training Program
PROC: 3E03329 Introduction of Other Anti-infective into Peripheral Vein, Percutaneous Approach (ICD-10-PCS; principal; 2024-06-21)
PROC: 3E033XZ Introduction of Vasopressor into Peripheral Vein, Percutaneous Approach (ICD-10-PCS; 2024-06-21)
PROC: 0T9B70Z Drainage of Bladder with Drainage Device, Via Natural or Artificial Opening (ICD-10-PCS; 2024-06-21)
DX: T82.7XXA Infection and inflammatory reaction due to other cardiac and vascular devices, implants and grafts, initial encounter (principal); R65.21 Severe sepsis with septic shock; R57.1 Hypovolemic shock; E43 Unspecified severe protein-calorie malnutrition; A41.9 Sepsis, unspecified organism; N17.9 Acute kidney failure, unspecified; E87.1 Hypo-osmolality and hyponatremia; E87.20 Acidosis, unspecified; R64 Cachexia; E88.09 Other disorders of plasma-protein metabolism, not elsewhere classified; N18.4 Chronic kidney disease, stage 4 (severe); I95.89 Other hypotension; E87.8 Other disorders of electrolyte and fluid balance, not elsewhere classified; E86.0 Dehydration; H54.7 Unspecified visual loss; K21.9 Gastro-esophageal reflux disease without esophagitis; G43.909 Migraine, unspecified, not intractable, without status migrainosus; F41.9 Anxiety disorder, unspecified; F32.A Depression, unspecified; E03.9 Hypothyroidism, unspecified; K92.1 Melena; K52.9 Noninfective gastroenteritis and colitis, unspecified; E55.9 Vitamin D deficiency, unspecified; Z79.899 Other long term (current) drug therapy; Z79.2 Long term (current) use of antibiotics; I25.2 Old myocardial infarction; Z87.01 Personal history of pneumonia (recurrent); Z87.440 Personal history of urinary (tract) infections; Z87.81 Personal history of (healed) traumatic fracture; Z98.49 Cataract extraction status, unspecified eye; Z98.890 Other specified postprocedural states; Z98.51 Tubal ligation status; Z68.1 Body mass index [BMI] 19.9 or less, adult
CPT/HCPCS: 0241U; 36415; 51702; 71045; 71045-26; 74176; 74176-26; 80048; 80053; 80202; 81001; 82024; 82272; 82306; 82533; 82607; 82746; 82947; 83605; 83690; 83735; 83880; 83930; 83935; 84100; 84300; 84425; 84439; 84443; 84484; 85025; 85027; 86140; 87040; 87045; 87046; 87086; 87493; 87899; 93005; 93010; 96361; 96365; 96375; 97110-GP; 97116-GP; 97161-GP; 99223; 99232; 99233; 99239; 99285-25; 99291; 99292; A9270-GY; J0612; J1644; J1720; J2020; J2060; J2405; J2543; J3372; J3475; J3480; J3490; J7030; J8597; Q0164

== ENCOUNTER 2024-12-23 14:21 | Inpatient (IN) | payer BC ==
[2024-12-23] MEDS ORDERED: Sodium Chloride 0.9% 10 ML Syringe FLUSH PRN (14:40)
[2024-12-23] MEDS: Sodium Chloride 0.9% 1,000 ML IV STA (15:11)
[2024-12-23 15:19] LABS: HEMATOCRIT 35.5 % (37.0-47.0); HEMOGLOBIN 10.7 gm/dl (12.0-16.0); MEAN CORPUSCULAR HEMOGLOBIN 20.3 pg (28.0-32.0); MEAN CORPUSCULAR HGB CONC 30.1 g/dl (32.0-36.0); MEAN CORPUSCULAR VOLUME 67.2 fl (83.0-99.0); MEAN PLATELET VOLUME 8.5 fl (9.4-12.3); PLATELET COUNT,PLT 539 K/mm3 (150-400); RED BLOOD CELL COUNT 5.28 M/mm3 (4.10-5.30); WHITE BLOOD CELL COUNT,WBC 19.41 K/mm3 (3.9-11.3)
[2024-12-23 15:39] LABS: PROTHROMBIN TIME 10.6 SECONDS (9.7-12.0)
[2024-12-23] MEDS: Ondansetron 4 MG/2 ML SDV IVPUSH ONE (15:40)
[2024-12-23 15:44] LABS: A/G RATIO 0.9 (1-2); ALBUMIN 2.8 g/dl (3.4-5.0); ANION GAP 19.6 (5-15); BILIRUBIN TOTAL 0.4 mg/dL (0.2-1.0); BUN/CREATININE RATIO 24.2 (14-18); C-REACTIVE PROTEIN 3.2 mg/dL (<0.30); CALCIUM 7.7 mg/dL (8.5-10.1); CREATININE 2.4 mg/dL (0.55-1.02); EST CRCL DRUG DOSING (CG) 14.39 mL/min; POTASSIUM,K 5.6 mEq/L (3.5-5.1)
[2024-12-23 15:51] LABS: LACTIC ACID 1.6 mmol/L (0.4-2.0)
[2024-12-23 15:58] LABS: BAND PERCENT MAN 0 % (0-10); BASOPHILS PERCENT MAN 0 (0.1-1.2); EOSINOPHILS PERCENT MAN 0 % (0.7-5.8); LYMPHOCYTES % ATYPICAL MANUAL 0 %; LYMPHOCYTES PERCENT MAN 9 % (20-40); MONOCYTES PERCENT MAN 0 % (2-10)
[2024-12-23 16:00] LABS: TOXIC GRANULATION FEW
[2024-12-23 16:03] LABS: PLATELET COUNT ESTIMATE INCREASED
[2024-12-23 16:04] LABS: HYPOCHROMASIA FEW; MICROCYTOSIS 2+ MODERATE
[2024-12-23 16:09] LABS: ANISOCYTOSIS 1+ SLIGHT; BURR CELLS FEW
[2024-12-23] MEDS: cefTRIAXone 2 GM Vial IVPUSH ONE (16:22)
[2024-12-23 16:28] LABS: APPEARANCE,URINE CLEAR (Clear); BILIRUBIN,URINE NEGATIVE (Negative); COLOR,URINE YELLOW (Yellow); GLUCOSE,URINE NEGATIVE (Negative); KETONES,URINE NEGATIVE (Negative); LEUKOCYTE ESTERASE,URINE 1+ (Negative); NITRITE,URINE NEGATIVE (Negative); OCCULT BLOOD,URINE 2+ (Negative); PH,URINE 5.5 (5.0-8.0); PROTEIN,URINE 2+ (Negative); UROBILINOGEN,URINE 0.2 (0.2-1.0)
[2024-12-23] MEDS ORDERED: Acetaminophen 325 MG Tab PO PRN (16:42)
[2024-12-23 18:00] LABS: AMORPHOUS SEDIMENT,URINE FEW /hpf (NOT SEEN); BACTERIA,URINE MODERATE /hpf (FEW); MUCUS,URINE FEW /hpf (FEW)
[2024-12-23 18:04] LABS: TSH 2.214 uIU/mL (0.358-3.74)
[2024-12-23] MEDS: Insulin Regular, Human 100 Units/ML 10 ML Vial IV ONE (18:45)
[2024-12-23] MEDS: 50% Dextrose in Water 50 ML Syringe IVPUSH ONE (18:48)
[2024-12-23] MEDS: Heparin Sodium 5,000 Units/ML Vial SUBCUT SCH (18:48)
[2024-12-23] MEDS ORDERED: Ondansetron 4 MG Tab.DIS PO PRN (19:14)
[2024-12-23] MEDS: Ondansetron 4 MG/2 ML SDV IVPUSH PRN (19:24)
[2024-12-23] MEDS: Sodium Chloride 0.9% 1,000 ML IV ONE (20:54)
[2024-12-24 04:50] LABS: BASOPHILS ABSOLUTE AUTO 0.1 K/mm3 (0.0-0.2); BASOPHILS PERCENT AUTO 0.5 % (0.0-1.0); EOSINOPHILS ABSOLUTE AUTO 0.1 K/mm3 (0.0-0.4); EOSINOPHILS PERCENT AUTO 1.3 % (0.0-6.0); HEMOGLOBIN 8.7 gm/dl (12.0-16.0); IMMATURE GRAN ABSOLUTE AUTO 0.08 K/mm3 (0.00-0.05); IMMATURE GRAN PERCENT AUTO 0.8 % (0.0-0.4); LYMPHOCYTES ABSOLUTE AUTO 2.6 K/mm3 (1.0-4.8); LYMPHOCYTES PERCENT AUTO 25.3 % (24.0-44.0); MEAN CORPUSCULAR HEMOGLOBIN 20.2 pg (28.0-32.0); MEAN CORPUSCULAR VOLUME 67.4 fl (83.0-99.0); MONOCYTES ABSOLUTE AUTO 0.7 K/mm3 (0.0-0.8); MONOCYTES PERCENT AUTO 7.3 % (0.0-8.0); NEUTROPHILS ABSOLUTE AUTO 6.5 K/mm3 (1.8-7.7); NEUTROPHILS PERCENT AUTO 64.8 % (41.0-71.0); PLATELET COUNT,PLT 425 K/mm3 (150-400)
[2024-12-24 05:25] LABS: A/G RATIO 0.8 (1-2); ALBUMIN 2.2 g/dl (3.4-5.0); ANION GAP 14.9 (5-15); BILIRUBIN TOTAL 0.2 mg/dL (0.2-1.0); C-REACTIVE PROTEIN 1.41 mg/dL (<0.30); CALCIUM 7.3 mg/dL (8.5-10.1); CREATININE 1.5 mg/dL (0.55-1.02); EST CRCL DRUG DOSING (CG) 22.9 mL/min; POTASSIUM,K 3.9 mEq/L (3.5-5.1); PROTEIN TOTAL,TP 4.9 g/dl (6.4-8.2)
[2024-12-24 06:25] LABS: SLIDE REVIEW ABNORMAL SMEAR
[2024-12-24] MEDS: cefTRIAXone 1 GM Vial IVPUSH ONE (13:21)
[2024-12-24 13:27] VITALS: BP 118/65; PULSE 93
[2024-12-24] MEDS ORDERED: cefTRIAXone 1 GM Vial IVPUSH SCH (16:20)
== END 2024-12-24 13:38 | disposition home or self-care (01) | DRG 720 ==
LOC: JD.ED 14:21 → JD.MS 16:42
PROVIDERS: ADMIT Family Medicine; ATTEND Student in an Organized Health Care Education/Training Program
DX: A41.51 Sepsis due to Escherichia coli [E. coli] (principal); N17.9 Acute kidney failure, unspecified; N39.0 Urinary tract infection, site not specified; H54.7 Unspecified visual loss; I25.2 Old myocardial infarction; K21.9 Gastro-esophageal reflux disease without esophagitis; N18.9 Chronic kidney disease, unspecified; G43.909 Migraine, unspecified, not intractable, without status migrainosus; F41.9 Anxiety disorder, unspecified; F32.A Depression, unspecified; E03.9 Hypothyroidism, unspecified; E55.9 Vitamin D deficiency, unspecified; R65.20 Severe sepsis without septic shock; N18.32 Chronic kidney disease, stage 3b; E87.6 Hypokalemia; E87.1 Hypo-osmolality and hyponatremia; E87.8 Other disorders of electrolyte and fluid balance, not elsewhere classified; Z79.899 Other long term (current) drug therapy; Z98.890 Other specified postprocedural states; Z98.51 Tubal ligation status; Z98.49 Cataract extraction status, unspecified eye
CPT/HCPCS: 36415; 71045; 71045-26; 80053; 81001; 83605; 83935; 84132; 84443; 85007; 85025; 85027; 85610; 86140; 87040; 87086; 93005; 96361; 96374; 96375; 99285-25; J0696; J1644; J1815-GY; J2405; J7030

== ENCOUNTER 2025-05-14 14:57 | Inpatient (IN) | payer BC ==
[2025-05-14] MEDS: LORazepam 2 MG/ML SDV IVPUSH STA (16:27)
[2025-05-14] MEDS: cefTRIAXone 1 GM in Water For Injection, Sterile 10 ML IVPUSH STA (16:28)
[2025-05-14 16:41] LABS: APPEARANCE,URINE TURBID (Clear); OCCULT BLOOD,URINE 3+ (Negative)
[2025-05-14 16:44] LABS: SQUAMOUS EPITHELIAL CELLS,UR 0-5 /hpf (0-5)
[2025-05-14 16:52] LABS: BASOPHILS ABSOLUTE AUTO 0.2 K/mm3 (0.0-0.2); BASOPHILS PERCENT AUTO 0.5 % (0.0-1.0); EOSINOPHILS ABSOLUTE AUTO 0.0 K/mm3 (0.0-0.4); EOSINOPHILS PERCENT AUTO 0.0 % (0.0-6.0); IMMATURE GRAN ABSOLUTE AUTO 0.26 K/mm3 (0.00-0.05); IMMATURE GRAN PERCENT AUTO 0.8 % (0.0-0.4); LYMPHOCYTES ABSOLUTE AUTO 0.8 K/mm3 (1.0-4.8); LYMPHOCYTES PERCENT AUTO 2.5 % (24.0-44.0); MEAN PLATELET VOLUME 8.3 fl (9.4-12.3); MONOCYTES ABSOLUTE AUTO 2.1 K/mm3 (0.0-0.8); MONOCYTES PERCENT AUTO 6.4 % (0.0-8.0); NEUTROPHILS ABSOLUTE AUTO 28.8 K/mm3 (1.8-7.7); NEUTROPHILS PERCENT AUTO 89.8 % (41.0-71.0); NRBC ABSOLUTE 0.00 (0.00-0.02); NRBC PERCENT 0.0 % (0.0-0.2); PLATELET COUNT,PLT 464 K/mm3 (150-400); RED BLOOD CELL COUNT 6.42 M/mm3 (4.10-5.30); WHITE BLOOD CELL COUNT,WBC 32.11 K/mm3 (3.9-11.3)
[2025-05-14 17:37] LABS: A/G RATIO 0.8 (1-2); ALANINE AMINOTRANSFERASE,ALT 64.0 U/L (14-59); ASPARTATE AMNIOTRANSFERASE,AST 127.0 U/L (15-37); BILIRUBIN TOTAL 0.2 mg/dL (0.2-1.0); BLOOD UREA NITROGEN,BUN 84.0 mg/dL (7-18); CARBON DIOXIDE,CO2 13.0 mEq/L (21-32); CHLORIDE,CL 101.0 mEq/L (98-107); CREATININE 3.0 mg/dL (0.55-1.02); EST CRCL DRUG DOSING (CG) 10.77 mL/min; ESTIMATED GFR 17.0 mL/min (>60); GLUCOSE RANDOM 222.0 mg/dL (70-99); POTASSIUM,K 5.0 mEq/L (3.5-5.1); PROTEIN TOTAL,TP 6.4 g/dl (6.4-8.2); SODIUM,NA 132.0 mEq/L (136-145)
[2025-05-14] MEDS: metroNIDAZOLE/Normal Saline 500 MG in Premix Bag 1 BAG IV STA (19:01)
[2025-05-14] MEDS: Ondansetron 4 MG/2 ML SDV IV PRN (20:38)
[2025-05-14 20:44] LABS: LACTIC ACID 2.2 mmol/L (0.4-2.0); SODIUM,NA 133 mEq/L (136-145)
[2025-05-14 21:08] LABS: OSMOLALITY,SERUM 309 mosm/kg (280-300)
[2025-05-15] MEDS: metroNIDAZOLE/Normal Saline 500 MG in Premix Bag 1 BAG IV SCH (02:00)
[2025-05-15 02:22] LABS: APPEARANCE,URINE CLEAR (Clear); GLUCOSE,URINE NEGATIVE (Negative); OCCULT BLOOD,URINE 2+ (Negative)
[2025-05-15 02:52] LABS: COARSE GRANULAR CASTS,URINE 20-30 /hpf (0-5); FINE GRANULAR CASTS,URINE 0-5 /lpf (0-5)
[2025-05-15 06:52] LABS: BASOPHILS ABSOLUTE AUTO 0.1 K/mm3 (0.0-0.2); BASOPHILS PERCENT AUTO 0.4 % (0.0-1.0); EOSINOPHILS ABSOLUTE AUTO 0.0 K/mm3 (0.0-0.4); EOSINOPHILS PERCENT AUTO 0.1 % (0.0-6.0); IMMATURE GRAN ABSOLUTE AUTO 0.13 K/mm3 (0.00-0.05); IMMATURE GRAN PERCENT AUTO 0.7 % (0.0-0.4); LYMPHOCYTES ABSOLUTE AUTO 0.8 K/mm3 (1.0-4.8); LYMPHOCYTES PERCENT AUTO 4.8 % (24.0-44.0); MEAN PLATELET VOLUME 8.9 fl (9.4-12.3); MONOCYTES ABSOLUTE AUTO 1.5 K/mm3 (0.0-0.8); MONOCYTES PERCENT AUTO 8.7 % (0.0-8.0); NEUTROPHILS ABSOLUTE AUTO 14.9 K/mm3 (1.8-7.7); NEUTROPHILS PERCENT AUTO 85.3 % (41.0-71.0); NRBC ABSOLUTE 0.00 (0.00-0.02); NRBC PERCENT 0.0 % (0.0-0.2); PLATELET COUNT,PLT 416 K/mm3 (150-400); RED BLOOD CELL COUNT 5.85 M/mm3 (4.10-5.30); WHITE BLOOD CELL COUNT,WBC 17.44 K/mm3 (3.9-11.3)
[2025-05-15 07:10] LABS: A/G RATIO 0.7 (1-2); ALANINE AMINOTRANSFERASE,ALT 42.0 U/L (14-59); ASPARTATE AMNIOTRANSFERASE,AST 37.0 U/L (15-37); BILIRUBIN TOTAL 0.4 mg/dL (0.2-1.0); BLOOD UREA NITROGEN,BUN 78.0 mg/dL (7-18); CARBON DIOXIDE,CO2 10.0 mEq/L (21-32); CHLORIDE,CL 101.0 mEq/L (98-107); CREATININE 2.7 mg/dL (0.55-1.02); EST CRCL DRUG DOSING (CG) 13.43 mL/min; ESTIMATED GFR 19.0 mL/min (>60); GLUCOSE RANDOM 156.0 mg/dL (70-99); POTASSIUM,K 3.5 mEq/L (3.5-5.1); PROTEIN TOTAL,TP 5.0 g/dl (6.4-8.2); SODIUM,NA 131.0 mEq/L (136-145)
[2025-05-15] MEDS ORDERED: Non-Formulary Medication 1 Each (Escitalopram Oxalate 20 MG Tablet) PO SCH ×2 (09:00)
[2025-05-15] MEDS: cefTRIAXone 1 GM in Water For Injection, Sterile 10 ML IVPUSH SCH (15:04)
[2025-05-15 15:08] LABS: BASE EXCESS ARTERIAL -16.2 (-2-2.0); BICARBONATE,ARTERIAL 7.4 meq/L (22.0-26.0); O2 SATURATION ARTERIAL 99.1 % (96.0-97.0); PCO2 ARTERIAL 15.0 mmHg (35.0-45.0); PO2 ARTERIAL 106.0 mmHg (80.0-100.0)
[2025-05-15 16:20] LABS: PHOSPHORUS 8.2 mg/dL (2.6-4.7); VITAMIN D,25-HYDROXY 35.8 ng/ml (30.0-100.0)
[2025-05-15] MEDS ORDERED: 50% Dextrose in Water 50 ML Syringe IVPUSH PRN (19:02)
[2025-05-15] MEDS: Insulin Lispro 100 Unit/ML 3 ML KwikPen SUBCUT SCH (22:00)
[2025-05-16 05:50] LABS: BASOPHILS ABSOLUTE AUTO 0.0 K/mm3 (0.0-0.2); BASOPHILS PERCENT AUTO 0.2 % (0.0-1.0); EOSINOPHILS ABSOLUTE AUTO 0.0 K/mm3 (0.0-0.4); EOSINOPHILS PERCENT AUTO 0.2 % (0.0-6.0); IMMATURE GRAN ABSOLUTE AUTO 0.10 K/mm3 (0.00-0.05); IMMATURE GRAN PERCENT AUTO 0.8 % (0.0-0.4); LYMPHOCYTES ABSOLUTE AUTO 1.6 K/mm3 (1.0-4.8); LYMPHOCYTES PERCENT AUTO 12.9 % (24.0-44.0); MEAN PLATELET VOLUME 8.4 fl (9.4-12.3); MONOCYTES ABSOLUTE AUTO 1.2 K/mm3 (0.0-0.8); MONOCYTES PERCENT AUTO 9.4 % (0.0-8.0); NEUTROPHILS ABSOLUTE AUTO 9.4 K/mm3 (1.8-7.7); NEUTROPHILS PERCENT AUTO 76.5 % (41.0-71.0); NRBC ABSOLUTE 0.00 (0.00-0.02); NRBC PERCENT 0.0 % (0.0-0.2); RED BLOOD CELL COUNT 4.60 M/mm3 (4.10-5.30); WHITE BLOOD CELL COUNT,WBC 12.29 K/mm3 (3.9-11.3)
[2025-05-16 05:57] LABS: A/G RATIO 0.8 (1-2); ALANINE AMINOTRANSFERASE,ALT 33.0 U/L (14-59); ASPARTATE AMNIOTRANSFERASE,AST 25.0 U/L (15-37); BILIRUBIN TOTAL 0.4 mg/dL (0.2-1.0); BLOOD UREA NITROGEN,BUN 54.0 mg/dL (7-18); CARBON DIOXIDE,CO2 17.0 mEq/L (21-32); CREATININE 2.0 mg/dL (0.55-1.02); EST CRCL DRUG DOSING (CG) 17.76 mL/min; ESTIMATED GFR 27.0 mL/min (>60); GLUCOSE RANDOM 93.0 mg/dL (70-99); PROTEIN TOTAL,TP 4.6 g/dl (6.4-8.2)
[2025-05-16 06:18] LABS: PLATELET COUNT,PLT 305 K/mm3 (150-400)
[2025-05-16 06:21] LABS: SODIUM,NA 135.0 mEq/L (136-145)
[2025-05-16 06:22] LABS: CHLORIDE,CL 104.0 mEq/L (98-107)
[2025-05-16] MEDS: Potassium Chloride 20 MEQ Tab.ER PO ONE (06:57)
[2025-05-16 07:31] LABS: POTASSIUM,K 2.1 mEq/L (3.5-5.1)
[2025-05-16 08:30] LABS: BASE EXCESS VENOUS -9.1 (-4.0-2.0); BICARBONATE,VENOUS 14.7 meq/L (22-26); O2 SATURATION VENOUS 79.4; PCO2 VENOUS 26.0 mmHg (41-51); PH,VENOUS 7.36 (7.30-7.40); PO2 VENOUS 48.0 mmHG (40-80)
[2025-05-16] MEDS: Potassium Chloride 20 MEQ Tab.ER PO SCH ×2 (09:00→20:53)
[2025-05-16 13:28] LABS: POTASSIUM,K 3.7 mEq/L (3.5-5.1)
[2025-05-17 04:23] LABS: BASOPHILS ABSOLUTE AUTO 0.1 K/mm3 (0.0-0.2); BASOPHILS PERCENT AUTO 0.5 % (0.0-1.0); EOSINOPHILS ABSOLUTE AUTO 0.1 K/mm3 (0.0-0.4); EOSINOPHILS PERCENT AUTO 1.3 % (0.0-6.0); IMMATURE GRAN ABSOLUTE AUTO 0.10 K/mm3 (0.00-0.05); IMMATURE GRAN PERCENT AUTO 1.0 % (0.0-0.4); LYMPHOCYTES ABSOLUTE AUTO 1.8 K/mm3 (1.0-4.8); LYMPHOCYTES PERCENT AUTO 17.7 % (24.0-44.0); MEAN PLATELET VOLUME 8.2 fl (9.4-12.3); MONOCYTES ABSOLUTE AUTO 0.8 K/mm3 (0.0-0.8); MONOCYTES PERCENT AUTO 7.9 % (0.0-8.0); NEUTROPHILS ABSOLUTE AUTO 7.3 K/mm3 (1.8-7.7); NEUTROPHILS PERCENT AUTO 71.6 % (41.0-71.0); NRBC ABSOLUTE 0.00 (0.00-0.02); NRBC PERCENT 0.0 % (0.0-0.2); PLATELET COUNT,PLT 266 K/mm3 (150-400); RED BLOOD CELL COUNT 4.34 M/mm3 (4.10-5.30); WHITE BLOOD CELL COUNT,WBC 10.23 K/mm3 (3.9-11.3)
[2025-05-17 04:48] LABS: A/G RATIO 0.8 (1-2); ALANINE AMINOTRANSFERASE,ALT 27.0 U/L (14-59); ASPARTATE AMNIOTRANSFERASE,AST 20.0 U/L (15-37); BILIRUBIN TOTAL 0.4 mg/dL (0.2-1.0); CARBON DIOXIDE,CO2 22.0 mEq/L (21-32); CHLORIDE,CL 107.0 mEq/L (98-107); CREATININE 1.3 mg/dL (0.55-1.02); EST CRCL DRUG DOSING (CG) 27.33 mL/min; ESTIMATED GFR 46.0 mL/min (>60); GLUCOSE RANDOM 88.0 mg/dL (70-99); PROTEIN TOTAL,TP 4.5 g/dl (6.4-8.2); SODIUM,NA 140.0 mEq/L (136-145)
[2025-05-17 04:50] LABS: POTASSIUM,K 2.3 mEq/L (3.5-5.1)
[2025-05-17 04:58] LABS: BLOOD UREA NITROGEN,BUN 29.0 mg/dL (7-18)
[2025-05-17] MEDS: Potassium Chloride 20 MEQ Tab.ER PO ONE ×2 (05:18→07:25)
[2025-05-17 14:20] LABS: BLOOD UREA NITROGEN,BUN 21.0 mg/dL (7-18); CARBON DIOXIDE,CO2 21.0 mEq/L (21-32); CHLORIDE,CL 106.0 mEq/L (98-107); CREATININE 1.0 mg/dL (0.55-1.02); EST CRCL DRUG DOSING (CG) 36.02 mL/min; ESTIMATED GFR 63.0 mL/min (>60); GLUCOSE RANDOM 135.0 mg/dL (70-99); POTASSIUM,K 3.4 mEq/L (3.5-5.1); SODIUM,NA 138.0 mEq/L (136-145)
[2025-05-17 16:23] VITALS: BP 144/84; PULSE 86
[2025-05-19 04:47] LABS: ALDOSTERONE 73.1 ng/dL
[2025-05-21 07:47] LABS: RENIN 75.5 ng/mL/hr
== END 2025-05-17 16:05 | disposition home or self-care (01) | DRG 720 ==
LOC: JD.ED 14:57 → JD.MS 18:16 → JD.ICU 05-16 08:23 → JD.MS 05-16 12:58
PROVIDERS: ADMIT Family Medicine; ATTEND Internal Medicine
PROC: 3E03329 Introduction of Other Anti-infective into Peripheral Vein, Percutaneous Approach (ICD-10-PCS; 2025-05-14)
PROC: 4A033R1 Measurement of Arterial Saturation, Peripheral, Percutaneous Approach (ICD-10-PCS; principal; 2025-05-15)
DX: A41.9 Sepsis, unspecified organism (principal); N17.1 Acute kidney failure with acute cortical necrosis; E87.20 Acidosis, unspecified; N12 Tubulo-interstitial nephritis, not specified as acute or chronic; I50.9 Heart failure, unspecified; R65.20 Severe sepsis without septic shock; I25.10 Atherosclerotic heart disease of native coronary artery without angina pectoris; E78.00 Pure hypercholesterolemia, unspecified; I48.91 Unspecified atrial fibrillation; H26.9 Unspecified cataract; H54.7 Unspecified visual loss; K21.9 Gastro-esophageal reflux disease without esophagitis; G43.909 Migraine, unspecified, not intractable, without status migrainosus; E03.9 Hypothyroidism, unspecified; K52.9 Noninfective gastroenteritis and colitis, unspecified; E86.0 Dehydration; N18.9 Chronic kidney disease, unspecified; R74.01 Elevation of levels of liver transaminase levels; E11.22 Type 2 diabetes mellitus with diabetic chronic kidney disease; E87.6 Hypokalemia; E87.5 Hyperkalemia; Z86.73 Personal history of transient ischemic attack (TIA), and cerebral infarction without residual deficits; Z88.1 Allergy status to other antibiotic agents; Z88.8 Allergy status to other drugs, medicaments and biological substances; Z87.01 Personal history of pneumonia (recurrent); Z87.440 Personal history of urinary (tract) infections; Z87.81 Personal history of (healed) traumatic fracture; Z98.51 Tubal ligation status; Z98.49 Cataract extraction status, unspecified eye
CPT/HCPCS: 36415; 36600; 74176; 74176-26; 80048; 80053; 81001; 82088; 82306; 82803; 82947; 83036; 83605; 83690; 83735; 83930; 83935; 84100; 84132; 84244; 84295; 85025; 86140; 87040; 87045; 87046; 87086; 87493; 87899; 96361; 96374; 96375; 99285; 99285-25; A9270-GY; J0696; J1650; J1836; J2060; J2405; J3480; J7030